=== PATIENT | female | born 1950 | race Caucasian/White ===

== ENCOUNTER → 2016-07-15 | Outpatient (CLI) | payer BC ==
--- NOTE | 2016-07-15 09:47 | MA ---
Bilateral Digital Screening Mammography Clinical History: 66-year-old female with no family history of breast cancer who presents for routine annual mammographic screening. Technique: Digital CC and MLO views of each breast were obtained. The appraiser irrigation tax indicates the mildred ent has MS and stands with the aid of her walker. Today's study is compared with previous exams dated June 23, 2015, May 24, 2014, May 17, 2013, June 21, 2011, June 04, 2010, and 2008. This examination was processed by the [employer] computer-aided detection system. Breast Density: Type C (heterogeneously dense). CAD Evaluation: Negative. Findings: The heterogeneously dense fibroglandular tissue is stable, with no focal neodensity or inte rim architectural change. There are are no new suspicious clustered microcalcifications. Impression: Negative mammography. BI-RADS Category: 1. Recommendation: Routine annual mammographic screening. [facility] will send a result letter to the patient. Negative mammography should not preclude additional work-up of a clinically suspicious finding. The patient's information is entered into a reminder system with a target due date for her next mammo gram.
== END ==
LOC: BMCIMAGING 08:18
DX: Z12.31 Encounter for screening mammogram for malignant neoplasm of breast (principal)
CPT/HCPCS: G0202

== ENCOUNTER 2016-10-17 07:55 | Outpatient (CLI) | payer BC ==
[2016-10-17] MEDS ORDERED: GADOBUTROL 10 ML VIAL IVP ONE (08:42)
[2016-10-17] MEDS ORDERED: MIDAZOLAM 2 MG/2 ML VIAL ONE (09:43)
[2016-10-17] MEDS ORDERED: fentaNYL 100 MCG/2 ML INJ ONE (09:43)
[2016-10-17 10:11] LABS: CREATININE 0.5 mg/dL (0.6-1.0); GLOMERULAR FILTRATION RATE > 60
== END 2016-10-17 12:30 | disposition home or self-care (01) ==
LOC: FIMAGING 07:55
PROVIDERS: ATTEND Specialist
PROC: B030ZZZ Magnetic Resonance Imaging (MRI) of Brain (ICD-10-PCS; principal; 2016-10-17)
PROC: BR30ZZZ Magnetic Resonance Imaging (MRI) of Cervical Spine (ICD-10-PCS; principal; 2016-10-17)
DX: G35 Multiple sclerosis (principal); R93.0 Abnormal findings on diagnostic imaging of skull and head, not elsewhere classified; G95.89 Other specified diseases of spinal cord
CPT/HCPCS: A9585; J2250; J3010

== ENCOUNTER → 2017-07-22 | Outpatient (CLI) | payer BC | LOC: BMCIMAGING 08:19 | PROVIDERS: ATTEND Internal Medicine | DX: Z12.31 Encounter for screening mammogram for malignant neoplasm of breast (principal) ==

== ENCOUNTER 2018-09-20 07:49 | Inpatient (IN) | payer BC ==
[2018-09-20] MEDS ORDERED: NS 1,000 ML IV ONE ×4 (08:03→10:00)
[2018-09-20] MEDS ORDERED: ONDANSETRON 4 MG/2 ML VIAL IVP ONE ×2 (08:14→10:08)
--- NOTE | 2018-09-20 08:14 | EDPHY ---
H & P Time Seen by Provider: 09/20/18 07:52 HPI/ROS: Chief complaint. Nausea vomiting, dehydration HPI. 68 year old female here by EMS with nausea vomiting for 2 days. Unable to keep fluids down. No diarrhea. Exposure to Infectious Disease as the patient is a 2 to her children. She tells me no abdominal pain. She has occasionally had some pain around her heart. No chest pain now. No shortness of breath. No fever. Decreased urine output. So weak could not get out of bed today even with assistance. Yesterday so weak that she slumped off the couch. No injury. No cough. She received Zofran per EMS and her nausea is better ROS 10 systems were reviewed and negative with the exception of the elements mentioned in the history of present illness Past Medical/Surgical History: MS, DVT, dyslipidemia Social History: , nonsmoker, no alcohol Smoking Status: Never smoked Physical Exam: General Appearance: Alert well-developed female moderate distress. Vital signs significant for blood pressure 68/50 for an initial O2 saturation 88% on room air Eyes: Pupils equal and round no pallor or injection. ENT, mucous membranes are dry Respiratory: There are no retractions, lungs are clear to auscultation. Cardiovascular: Regular rate and rhythm. Gastrointestinal: Abdomen is soft and nontender, no masses, bowel sounds normal. Neurological: Awake and alert, sensory and motor exams grossly normal. Skin: Warm and dry, no rashes. Musculoskeletal: Neck is supple nontender. Extremities symmetrical, full range of motion. Psychiatric: Patient is oriented X 3, there is no agitation. Constitutional: Initial Vital Signs Temperature (C) 36.7 C 09/20/18 07:51 Heart Rate 81 09/20/18 07:51 Respiratory Rate 18 09/20/18 07:51 Blood Pressure 68/54 L 09/20/18 07:51 O2 Sat (%) 88 L 09/20/18 07:51 O2 Delivery Mode Nasal Cannula O2 (L/minute) 1 Allergies/Adverse Reactions: No Known Allergies Allergy (Unverified 10/11/16 15:07) Home Medications: Medication Instructions Recorded Cholecalciferol (Vitamin D3) 2,000 unit PO DAILY 10/11/16 [Vitamin D3] Aspirin EC [Aspirin EC 81 mg (*)] 81 mg PO DAILY 09/20/18 Azelaic Acid [Finacea] 1 rosalva TP BID PRN 09/20/18 Baclofen [Baclofen 10 mg (*)] 10 mg PO Q6H PRN 09/20/18 Diclofenac Sodium 1% [Voltaren Gel 2 gm TP QID PRN 09/20/18 (*)] Herbals/Supplements -Info Only 1 ea PO DAILY 09/20/18 Hydrochlorothiazide [HCTZ (*)] 25 mg PO DAILY 09/20/18 Multivitamins [Multivitamin (*)] 1 each PO DAILY 09/20/18 Peginterferon Beta-1A [Plegridy 125 mcg SQ Q14D 09/20/18 Pen] Simvastatin 40 mg PO HS 09/20/18 Urea 40% [Urea Cream (*)] 1 rosalva TP HS PRN 09/20/18 Medical Decision Making - Diagnostics EKG Interpretation: EKG interpreted by me shows normal sinus rhythm with normal interval. Mild interventricular conduction delay. 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 No significant ST elevation or depression. No arrhythmia. The rate is 80 No significant change from previous EKG 2011 Imaging Results: Imaging Impressions Chest X-Ray 09/20/18 08:16 Impression: There is no focal infiltrate, or evidence of CHF. Post central line placement chest x-ray performed by me and shows good position of the catheter Procedures: 2 IVs are started and patient is given 2 L of saline initially. Zofran. Monitor. Sepsis workup Right internal jugular central line is placed by me. Sterile procedure. Ultrasound is used to identify the right internal jugular vein. We continue to use ultrasound to guide the needle into the subclavian vein. Central catheter is placed using Seldinger technique. Patient tolerates the procedure well After central line placement is confirmed she started on norepinephrine for improved blood pressure Patient does have evidence of UTI. She is given Rocephin IV. Urine is sent for culture. Patient has already had blood cultures performed ED Course/Re-evaluation: Re-evaluation 8:30 p.m. Patient is stable. Blood pressure is 70/62 and 69/55 after 1 L of fluid Sepsis workup 8:45 a.m. Pressure the was 93/72 Repeat blood pressure was 112/70. And when we tried to set the patient blood pressure dropped again to 73/51. Patient's lactate is elevated. Severe sepsis ordered. Patient has already received a 30 milliliter/kilogram fluid bolus. At this point this still appears to be dehydration and so far no evidence for infection Patient continues to be somewhat hypertensive and has an elevated lactate. Central line is started and the patient is started on norepinephrine I consulted discussed case with Dr. Echeverria, hospitalist, who agrees to the admission Differential Diagnosis: Initially the seemed to be dehydration. Blood pressure was initially coming up with fluids and then dropped again. Septic workup showed elevated lactate. Chest x-ray shows no pneumonia. Urine does look infected. Patient continued to be hypotensive so central line is placed by me and the patient is placed on a norepinephrine drip. Critical Care Time: Critical care time exclusive procedures 50 min - Data Points Laboratory Results: Laboratory Results 09/20/18 08:00 09/20/18 08:00 09/20/18 09/20/18 09/20/18 09:00 08:45 08:45 WBC RBC Hgb POC Hgb Hct POC Hct MCV MCH MCHC RDW Plt Count MPV Neut % (Auto) Lymph % (Auto) [place] % (Auto) Eos % (Auto) Baso % (Auto) Nucleat RBC Rel Count Absolute Neuts (auto) Absolute Lymphs (auto) Absolute Monos (auto) Absolute Eos (auto) Absolute Basos (auto) Absolute Nucleated RBC Immature Gran % Seg Neutrophils % Band Neutrophils % Lymphocytes % Monocytes % Eosinophils % Basophils % Metamyelocytes % Myelocytes % Promyelocytes % Blast Cells % Immature Gran # Absolute Seg Neuts Absolute Band Neuts Absolute Lymphocytes Absolute Monocytes Absolute Eosinophils Absolute Basophils Absolute Metamyelocyte Absolute Myelocytes Absolute Promyelocytes Absolute Plasma Cells Nucleated RBCs Absolute Blast Cells Plasma Cells % Toxic Vacuolation Platelet Estimate Microcytic Cells Elliptocytes PT 17.2 SEC H SEC REJ (12.0-15.0) INR 1.47 H REJ (0.83-1.16) APTT 36.1 SEC SEC REJ (23.0-38.0) VBG Lactic Acid 2.3 mmol/L H mmol/L (0.7-2.1) POC Sodium Sodium POC Potassium Potassium POC Chloride Chloride Carbon Dioxide POC Total CO2 Anion Gap POC BUN BUN Creatinine POC Creatinine Estimated GFR Glucose POC Glucose Calcium Total Bilirubin Conjugated Bilirubin Unconjugated Bilirubin AST ALT Alkaline Phosphatase POC Troponin I Total Protein Albumin Lipase 09/20/18 09/20/18 09/20/18 08:12 08:11 08:00 WBC RBC Hgb POC Hgb 13.9 gm/dL gm/dL (12.6-16.3) Hct POC Hct 41 % % (38-47) MCV MCH MCHC RDW Plt Count MPV Neut % (Auto) Lymph % (Auto) [place] % (Auto) Eos % (Auto) Baso % (Auto) Nucleat RBC Rel Count Absolute Neuts (auto) Absolute Lymphs (auto) Absolute Monos (auto) Absolute Eos (auto) Absolute Basos (auto) Absolute Nucleated RBC Immature Gran % Seg Neutrophils % Band Neutrophils % Lymphocytes % Monocytes % Eosinophils % Basophils % Metamyelocytes % Myelocytes % Promyelocytes % Blast Cells % Immature Gran # Absolute Seg Neuts Absolute Band Neuts Absolute Lymphocytes Absolute Monocytes Absolute Eosinophils Absolute Basophils Absolute Metamyelocyte Absolute Myelocytes Absolute Promyelocytes Absolute Plasma Cells Nucleated RBCs Absolute Blast Cells Plasma Cells % Toxic Vacuolation Platelet Estimate Microcytic Cells Elliptocytes PT INR APTT VBG Lactic Acid POC Sodium 138 mEq/L mEq/L (135-145) Sodium 134 mEq/L L mEq/L (135-145) POC Potassium 3.1 mEq/L L mEq/L (3.3-5.0) Potassium 3.1 mEq/L L mEq/L (3.5-5.2) POC Chloride 101 mEq/L mEq/L (97-110) Chloride 101 mEq/L mEq/L (97-110) Carbon Dioxide 23 mEq/l mEq/l (22-31) POC Total CO2 26 mEq/L mEq/L (22-31) Anion Gap 10 mEq/L mEq/L (6-14) POC BUN 44 mg/dL H mg/dL (7-23) BUN 43 mg/dL H mg/dL (7-23) Creatinine 1.3 mg/dL H mg/dL (0.6-1.0) POC Creatinine 1.4 mg/dL H mg/dL (0.6-1.0) Estimated GFR 41 Glucose 100 mg/dL mg/dL (70-100) POC Glucose 99 mg/dL mg/dL (70-100) Calcium 9.2 mg/dL mg/dL (8.5-10.4) Total Bilirubin 0.7 mg/dL mg/dL (0.1-1.4) Conjugated Bilirubin 0.5 mg/dL mg/dL (0.0-0.5) Unconjugated Bilirubin 0.2 mg/dL mg/dL (0.0-1.1) AST 76 IU/L H IU/L (14-46) ALT 42 IU/L IU/L (9-52) Alkaline Phosphatase 138 IU/L H IU/L (38-126) POC Troponin I 0.01 ng/mL ng/mL (0.00-0.08) Total Protein 6.1 g/dL L g/dL (6.3-8.2) Albumin 3.2 g/dL L g/dL (3.5-5.0) Lipase 23 IU/L IU/L (23-300) 09/20/18 08:00 WBC 12.21 10^3/uL H 10^3/uL (3.80-9.50) RBC 4.62 10^6/uL 10^6/uL (4.18-5.33) Hgb 13.9 g/dL g/dL (12.6-16.3) POC Hgb Hct 39.5 % % (38.0-47.0) POC Hct MCV 85.5 fL fL (81.5-99.8) MCH 30.1 pg pg (27.9-34.1) MCHC 35.2 g/dL g/dL (32.4-36.7) RDW 13.6 % % (11.5-15.2) Plt Count 88 10^3/uL L 10^3/uL (150-400) MPV 12.4 fL H fL (8.7-11.7) Neut % (Auto) Not Reported Lymph % (Auto) Not Reported [place] % (Auto) Not Reported Eos % (Auto) Not Reported Baso % (Auto) Not Reported Nucleat RBC Rel Count Not Reported Absolute Neuts (auto) Not Reported Absolute Lymphs (auto) Not Reported Absolute Monos (auto) Not Reported Absolute Eos (auto) Not Reported Absolute Basos (auto) Not Reported Absolute Nucleated RBC Not Reported Immature Gran % Not Reported Seg Neutrophils % 63.0 % % Band Neutrophils % 28.0 % % Lymphocytes % 1.0 % % Monocytes % 1.0 % % Eosinophils % 0.0 % % Basophils % 0.0 % % Metamyelocytes % 7.0 % % Myelocytes % 0.0 % % Promyelocytes % 0.0 % % Blast Cells % 0.0 % % Immature Gran # Not Reported Absolute Seg Neuts 7.69 10^3/uL H 10^3/uL (1.70-6.50) Absolute Band Neuts 3.42 10^3/uL H 10^3/uL (0.00-0.70) Absolute Lymphocytes 0.12 10^3/uL L 10^3/uL (1.00-3.00) Absolute Monocytes 0.12 10^3/uL L 10^3/uL (0.30-0.80) Absolute Eosinophils 0.00 10^3/uL L 10^3/uL (0.03-0.40) Absolute Basophils 0.00 10^3/uL L 10^3/uL (0.02-0.10) Absolute Metamyelocyte 0.85 10^3/mL H 10^3/mL (0.00-0.00) Absolute Myelocytes 0.00 10^3/mL 10^3/mL (0.00-0.00) Absolute Promyelocytes 0.00 10^3/uL 10^3/uL (0.00-0.00) Absolute Plasma Cells 0.00 10^3/uL 10^3/uL (0.00-0.00) Nucleated RBCs 0 /100 WBC /100 WBC (0-0) Absolute Blast Cells 0.00 10^3/uL 10^3/uL (0.00-0.00) Plasma Cells % 0.0 % % Toxic Vacuolation PRESENT H Platelet Estimate DECREASED L (ADEQ) Microcytic Cells 1+ H Elliptocytes 1+ H PT INR APTT VBG Lactic Acid POC Sodium Sodium POC Potassium Potassium POC Chloride Chloride Carbon Dioxide POC Total CO2 Anion Gap POC BUN BUN Creatinine POC Creatinine Estimated GFR Glucose POC Glucose Calcium Total Bilirubin Conjugated Bilirubin Unconjugated Bilirubin AST ALT Alkaline Phosphatase POC Troponin I Total Protein Albumin Lipase Medications Given: Acetaminophen (Tylenol) 650 mg PO Q4HRS PRN PRN Reason: Pain, Mild/Fever, Can Take PO Stop: 03/19/19 09:48 Last Admin: 09/20/18 11:44 Dose: 650 mg Baclofen (Baclofen) 10 mg PO Q6H PRN PRN Reason: MUSCLE SPASM Stop: 03/19/19 11:10 Last Admin: 09/20/18 11:43 Dose: 10 mg Potassium Chloride (Potassium Cl 10 Meq (Premix)) 100 mls @ 100 mls/hr IV Q1H VITALIY Stop: 09/20/18 12:59 Last Admin: 09/20/18 11:53 Dose: 100 mls Discontinued Medications Sodium Chloride (Ns) 1,000 mls @ 0 mls/hr IV ONCE ONE; Wide Open PRN Reason: Protocol Stop: 09/20/18 08:04 Last Admin: 09/20/18 08:04 Dose: 1,000 mls Sodium Chloride (Ns) 1,000 mls @ 0 mls/hr IV EDNOW ONE; Wide Open PRN Reason: Protocol Stop: 09/20/18 08:15 Last Admin: 09/20/18 08:20 Dose: 1,000 mls Sodium Chloride (Ns) 1,000 mls @ 0 mls/hr IV EDNOW ONE; Wide Open PRN Reason: Protocol Stop: 09/20/18 09:11 Last Admin: 09/20/18 09:11 Dose: 1,000 mls Sodium Chloride (Ns) 2,000 mls @ 4,000 mls/hr 30 ml/kg infuse over 30 min ( 2000 ml) IV EDNOW ONE PRN Reason: Protocol Stop: 09/20/18 09:40 Last Admin: 09/20/18 09:15 Dose: Not Given Sodium Chloride (Ns) 1,000 mls @ 0 mls/hr IV ONCE ONE; Wide Open PRN Reason: Protocol Stop: 09/20/18 10:01 Last Admin: 09/20/18 10:02 Dose: 1,000 mls Ceftriaxone Sodium/Dextrose (Rocephin 1 Gm (Premix)) 50 mls @ 100 mls/hr IV EDNOW ONE PRN Reason: Protocol Stop: 09/20/18 10:50 Last Admin: 09/20/18 10:59 Dose: 50 mls Ondansetron HCl (Zofran) 4 mg IVP EDNOW ONE Stop: 09/20/18 08:15 Last Admin: 09/20/18 08:20 Dose: 4 mg Ondansetron HCl (Zofran) 4 mg IVP EDNOW ONE Stop: 09/20/18 10:09 Last Admin: 09/20/18 10:09 Dose: 4 mg Point of Care Test Results: Chemistry 09/20/18 09/20/18 08:12 08:11 POC Sodium 138 mEq/L mEq/L (135-145) POC Potassium 3.1 mEq/L L mEq/L (3.3-5.0) POC Chloride 101 mEq/L mEq/L (97-110) POC Total CO2 26 mEq/L mEq/L (22-31) POC BUN 44 mg/dL H mg/dL (7-23) POC Creatinine 1.4 mg/dL H mg/dL (0.6-1.0) POC Glucose 99 mg/dL mg/dL (70-100) POC Troponin I 0.01 ng/mL ng/mL (0.00-0.08) ISTAT H&H 09/20/18 08:12 POC Hgb 13.9 gm/dL gm/dL (12.6-16.3) POC Hct 41 % % (38-47) Departure - Departure Disposition: [facility] Inpatient Acute Clinical Impression: Septic shock Sepsis Qualifiers: Sepsis type: sepsis due to unspecified organism Qualified Code(s): A41.9 - Sepsis, unspecified organism Urinary tract infection Qualifiers: Urinary tract infection type: site unspecified Hematuria presence: without hematuria Qualified Code(s): N39.0 - Urinary tract infection, site not specified Hypotension Qualifiers: Hypotension type: unspecified hypotension type Qualified Code(s): I95.9 - Hypotension, unspecified Condition: Fair
[2018-09-20 08:25] LABS: PLATELET COUNT 88 10^3/uL (150-400)
--- NOTE | 2018-09-20 08:34 | CPEKG ---
Test Reason : OPEN Blood Pressure : / mmHG Vent. Rate : 080 BPM Atrial Rate : 080 BPM P-R Int : 144 ms QRS Dur : 124 ms QT Int : 399 ms P-R-T Axes : 076 -19 018 degrees QTc Int : 461 ms Sinus rhythm IVCD, consider atypical RBBB Inferior infarct, old Confirmed by Mario Alberto Dan ([id number]) on 09/20/2018 8:34:07 AM Referred By: MARIO ALBERTO DAN Confirmed By:Mario Alberto Dan
[2018-09-20] MEDS ORDERED: NS 2,000 ML IV ONE (09:11)
[2018-09-20 09:41] LABS: INR 1.47 (0.83-1.16); PROTIME(PATIENT) 17.2 SEC (12.0-15.0)
[2018-09-20] MEDS ORDERED: ONDANSETRON DISINTEGRATING 4 MG TAB PO PRN (09:49)
[2018-09-20] MEDS ORDERED: ONDANSETRON 4 MG/2 ML VIAL ONE (10:06)
[2018-09-20] MEDS ORDERED: NOREPINEPHRINE BITARTRATE 4 MG in NS 500 ML IV ONE (10:21)
[2018-09-20] MEDS ORDERED: POTASSIUM Cl (KCl) 10 MEQ/100 ML BAG IV ONE ×2 (10:26→11:52)
[2018-09-20] MEDS: POTASSIUM Cl (KCl) 100 ML IV SCH ×3 (10:35→15:30)
[2018-09-20] MEDS ORDERED: UREA 40% CREAM TP PRN (11:11)
[2018-09-20] MEDS ORDERED: AZELAIC ACID TP PRN (11:11)
[2018-09-20] MEDS ORDERED: NS 1,000 ML IV SCH (11:30)
[2018-09-20] MEDS ORDERED: BACLOFEN 10 MG TAB ONE (11:39)
[2018-09-20] MEDS ORDERED: ACETAMINOPHEN 325 MG TAB ONE (11:41)
[2018-09-20] MEDS: BACLOFEN 10 MG TAB PO PRN ×3 (11:43→23:45)
[2018-09-20] MEDS: ACETAMINOPHEN 325 MG TAB PO PRN ×2 (11:44→16:34)
--- NOTE | 2018-09-20 12:05 | GHP ---
[f rep st] HISTORY AND PHYSICAL DATE OF ADMISSION: 09/20/2018 CHIEF COMPLAINT: Confusion, hypotension. HISTORY OF PRESENT ILLNESS: HPI is obtained from ER physician, as well as daughter who is at bedside, since patient is encephalopathic. Patient is a 68-year-old female with a history of multiple sclerosis, left peroneal vein DVT 2015, who presents by EMS with nausea and vomiting since Friday. She has been unable to tolerate p.o. intake. Denies fevers, chills or sweats. No diarrhea, abdominal pain. Has urinary urgency which she states is her norm. Yesterday, she became so weak she slumped down from the couch to the floor and was down for a few hours until daughter returned home to help up. The patient complains of "pain around my heart, but could not elicit when aggravating/alleviating factors. 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 Last exposure a week ago. In the ER, was hypotensive to 69/55 after 1 L of fluid. This improved to 112/70 , but then dropped again. Dr. Dan placed a central line. Systolic blood pressure now 112 with a map greater than 75. REVIEW OF SYSTEMS: I completed a 10-point review of system. PAST MEDICAL HISTORY: 1. Multiple sclerosis, history of falls, history of sternal fracture. 2. Left peroneal vein DVT 2016, status post Xarelto treatment. PAST SURGICAL HISTORY: None. FAMILY HISTORY: Noncontributory. SOCIAL HISTORY: Lives with her . No alcohol, tobacco or illicits. HOME MEDICATIONS: Plegridy q.14 days, urea cream, simvastatin 40 mg daily, multivitamin, hydrochlorothiazide 25 daily, Finacea cream, diclofenac gel, baclofen 10 q.6 hours p.r.n., aspirin. ALLERGIES: None. PHYSICAL EXAM: VITAL SIGNS: Temperature afebrile. Blood pressure is 70/53, now 105/65, map 78, heart rate in the 90s, respirations 20, 93% on room air. GENERAL: She is an overweight female lying in bed in no acute distress. HEENT : Significantly dry mucous membranes. Oropharynx clear. No exudates or erythema. CV: Regular rate and rhythm. No murmurs, gallops, or rubs. LUNGS: Clear anteriorly. ABDOMEN: Obese, but soft. No grimace with palpation. Positive bowel sounds. : No suprapubic tenderness. Was unable to turn to evaluate for CVA tenderness. : No Loyd. MUSCULOSKELETAL: Having upper extremity spasms. SKIN: Warm, dry. No rash or ulceration. NEURO: Not able to participate in my exam due to confusion. PSYCH: She is encephalopathic. She is oriented to the hospital, the city, but not the date or year. LABS: WBC 12, hemoglobin 13, hematocrit 39, platelets 88 (baseline 226, March 2018). Lactate 2.3. Sodium 134, potassium 3.1, chloride 101, carbon dioxide 23, BUN 43, creatinine is 1.4 (baseline 0.7). Troponin 0.001. Chest x-ray is personally reviewed by me. No pneumonia. EKG is personally reviewed by me. Sinus rhythm, IVCD which is seen on old in 2011. ASSESSMENT AND PLAN: 1. Septic shock: (leukocytosis, elevated lactate, +UA) CXR negative. Urine/ blood cultures are pending. IV Ceftriaxone. Dosed 4L fluids with persistent hypotension. Start Levophed; central line placed in ER. 2. Hypotension: due to above and dehydrated. Troponin and EKG are nonischemic. Repeat troponin and monitor on telemetry. Infectious evaluation as above. Hold hydrochlorothiazide. 3. Lactic acidosis: due to shock, starvation ketoacidosis. Receiving intravenous fluids. Repeat this afternoon. 4. Multiple sclerosis: baclofen for muscle spasms. 5. Hypovolemic hyponatremia: decreased PO. Intravenous fluids. 6. Hypokalemia. repleting. 7. Acute kidney injury: Baseline Cr 0.7; up to 1.4. Avoid nephrotoxic agents , hold HCTZ 8. Hypertension. Hold hydrochlorothiazide. 9. Thrombocytopenia: platelets 88. From acute critical illness. No evidence of bleeding. 10. Metabolic encephalopathy: due to acute illness. Avoid centrally-acting medications. 11. Diet: Advance as tolerated. 12. Deep vein thrombosis prophylaxis: Sequential compression devices. DISPOSITION: Inpatient admission given severe sepsis warranting ICU, IV fluids and antibiotics. CRITICAL CARE TIME: Spent 60 minutes bedside with patient, interviewing family and discussing case with Dr. Dan. /[id number]/MODL MTDD
--- NOTE | 2018-09-20 15:25 | ASMTCMCOM ---
CM Note CM Note Notes: Reviewed chart. Pt presented to the Emergency Department with nausea, vomiting and dehydration. History includes MS, falls, prior sternal fx, left DVT. Pt is and lives with her in [place]. Pt admitted for septic shock, hypotension. Discharge needs remain unclear at this time. Will await PT/OT evals. CM will continue to follow. Discharge Plan: To be determined Date Signed: 09/20/2018 03:25 PM Electronically Signed By:Sheri Marte RN
[2018-09-20] MEDS ORDERED: POTASSIUM Cl (KCl) 100 ML IV ONE (15:30)
[2018-09-20] MEDS: VASOPRESSIN 25 UNIT in NS 250 ML IV SCH (16:04)
[2018-09-20] MEDS: HYDROCORTISONE 100 MG/2 ML VIAL IVP SCH (17:38)
[2018-09-20] MEDS: NOREPINEPHRINE BITARTRATE 4 MG in NS 500 ML IV SCH ×2 (18:19→22:36)
--- NOTE | 2018-09-20 18:38 | PDMN ---
Medical Necessity Medical necessity: [facility] [place] and other febrile illness: 68 yo F with PMHX MS, L peroneal vein DVT( 2016) presents with N/V X 2 days, unable to tolerate PO, weakness, hypotensive- septic shock with leukocytosis, elevated lactate +UA, urine/blood cultures pending- anticipate > 2 MN ongoing med nec care- further monitoring, eval and tx.
[2018-09-20] MEDS: ONDANSETRON 4 MG/2 ML VIAL IVP PRN (20:37)
--- NOTE | 2018-09-20 20:51 | GCON ---
[f rep st] CONSULTATION [facility] CONSULTATION REASON FOR ADMISSION: Sepsis, urinary tract infection. I was asked to see the patient by Dr. Yoan Echeverria. The patient is a very pleasant 68-year-old white female with a past medical history of multiple scler osis. She also had DVT in the past. She presents with feeling unwell for the last 3 days. This is mostly nausea and vomiting, and she was unable to keep fluids down. She denies any cough or producti ve sputum. There was no chest pain, pleuritic-type chest pain or angina equivalent. She had increas ed weakness and was found slumped on the floor. She was brought to the emergency room and found to b e hypotensive. She was started on IV fluids and was subsequently admitted to the intensive care unit . Currently, she feels somewhat better, but is quite weak and very somnolent. REVIEW OF SYSTEMS: Ten-point review of systems is performed and negative except for what is listed i n HPI. PAST MEDICAL HISTORY: Significant for DVT, multiple sclerosis, and history of falls. ALLERGIES: No known allergies to medications. SOCIAL HISTORY: Lifelong never-smoker. She denies any significant alcohol use. 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 She is . She has children. She has excellent family support. She has lived in [place] for 45 years, is or iginally from [facility]. MEDICATIONS AT HOME: Include baclofen, aspirin, hydrochlorothiazide, multivitamin, simvastatin, Pleg ridy. FAMILY HISTORY: Noncontributory. PHYSICAL EXAM: VITAL SIGNS: Blood pressure is 68/46, pulse 89, respirations 20, temperature is 36.9 , oxygen saturation 98% on 4 L. GENERAL: She is a well-developed, well-nourished, elderly white fem cassi who is resting comfortably on supplemental oxygen. HEENT: Eyes: PERRLA. EOMI. Throat shows n o erythema or tonsillar hypertrophy. NECK: Supple. No cervical adenopathy. HEART: Regular rate a nd rhythm without murmurs, rubs, or gallops. LUNGS: Diminished breath sounds, but no wheeze. There are a few bibasilar crackles. ABDOMEN: Soft, nontender. Bowel sounds are present. EXTREMITIES: No clubbing, cyanosis, or edema. LABORATORIES: White count is 12.2, hemoglobin 13, hematocrit 41, platelet count is 88. Sodium 138, potassium 3.1, chloride 101, CO2 26, BUN 43, creatinine 1.3, glucose is 99, alkaline phosphatase is e levated at 138. Urinalysis: pH is 5, specific gravity 1.014, 3+ blood, 10-15 WBCs, 4+ bacteria. Ch est x-ray shows mild cardiomegaly. There is mild increased cephalization of flow. IMPRESSION: 1. Sepsis with septic shock. 2. Urinary tract infection, likely source. 3. Mild fluid overload. 4. History of multiple sclerosis. 5. History of deep venous thrombosis. 6. Thrombocytopenia. 7. Mild renal insufficiency, likely prerenal. RECOMMENDATIONS: 1. Agree with continued hydration. 2. Supplemental oxygen. 3. Agree with IV pressors, consisting of Levophed. 4. Agree with current antibiotics. 5. DVT and PE prophylaxis. 6. Stress ulcer prophylaxis. 7. Wean FiO2 as tolerated. Thank you very much for allowing me to participate in the care of this interesting patient. We will follow along with you. /[id number]/MODL
--- NOTE | 2018-09-20 23:22 | CPEKG ---
Test Reason : OPEN Blood Pressure : / mmHG Vent. Rate : 075 BPM Atrial Rate : 075 BPM P-R Int : 146 ms QRS Dur : 115 ms QT Int : 399 ms P-R-T Axes : 060 -19 012 degrees QTc Int : 446 ms Sinus rhythm leftward axis inferior Q waves noted Incomplete right bundle branch block Low voltage, precordial leads Confirmed by Abhijit Calvin ([id number] on 09/20/2018 11:22:19 PM Referred By: Leni Echeverria Confirmed By:Abhijit Calvin
[2018-09-21] MEDS: HYDROCORTISONE 100 MG/2 ML VIAL IVP SCH ×2 (04:58→22:56)
[2018-09-21] MEDS: ONDANSETRON 4 MG/2 ML VIAL IVP PRN ×3 (05:03→14:11)
[2018-09-21] MEDS: VASOPRESSIN 25 UNIT in NS 250 ML IV SCH (05:03)
[2018-09-21] MEDS: BACLOFEN 10 MG TAB PO PRN ×4 (06:03→22:57)
[2018-09-21 06:15] LABS: PLATELET COUNT 36 10^3/uL (150-400)
--- NOTE | 2018-09-21 08:49 | HOSPPROG ---
Hospitalist Progress Note Assessment/Plan: #Septic shock: due to bacteremia. Off pressors, cont IV steroids #E coli bacteremia: IV CTX #Type 2 NSTEMI: demand from critical illness. No WMA on echo #Thrombocytopenia: due to sepsis. Cryo not indicated. No heparin products #Metabolic encephalopathy: due to acute illness, improved #MS: PRN Baclofen #MIKEY: improved #Hypokalemia: repleted #HTN: hold BP meds with shock #Diet: regular #DVT ppx: SCDs Critical care time spent: 35 min bedside with pt/family, d/w Dr. Go Subjective: c/o left-sided CP, dull this morning Objective: Vital Signs Temp Pulse Resp BP Pulse Ox 36.4 C 66 18 110/66 93 09/20/18 22:00 09/21/18 08:30 09/21/18 08:30 09/21/18 08:30 09/21/18 08:30 Laboratory Results 09/21/18 05:05 09/20/18 09/21/18 09/22/18 05:59 05:59 05:59 Intake Total 4790 Output Total 650 Balance 4140 PT 17.2 SEC (12.0-15.0) H 09/20/18 09:00 INR 1.47 (0.83-1.16) H 09/20/18 09:00 - Time Spent With Patient Time Spent with Patient: greater than 35 minutes Time Spent with Patient: Greater than 35 minutes spent on this patients care, greater than 50% of time spent counseling, educating, and coordinating care regarding the above mentioned plan. - Physical Exam Constitutional: uncomfortable Eyes: PERRL Ears, Nose, Mouth, Throat: moist mucous membranes Cardiovascular: regular rate and rhythym, No edema Respiratory: no respiratory distress Genitourinary: no bladder fullness, collins in urethra Skin: warm Musculoskeletal: full muscle strength Neurologic: CN II-XII Intact Psychiatric: encephalopathic ICD10 Worksheet Patient Problems: Problems Problem Status Onset Sepsis Acute Urinary tract infection Acute Hypotension Acute Septic shock Acute
[2018-09-21] MEDS ORDERED: ENOXAPARIN 40 MG/0.4 ML SYR SC SCH (09:00)
[2018-09-21] MEDS ORDERED: POLYETHYLENE GLYCOL 3350 17 GM PKT PO PRN (09:01)
[2018-09-21] MEDS ORDERED: LACTULOSE 20 GM/30 ML UDCUP PO PRN (09:01)
[2018-09-21] MEDS ORDERED: MAGNESIUM HYDROXIDE 30 ML UDCUP PO PRN (09:01)
[2018-09-21] MEDS ORDERED: BISACODYL 10 MG SUPP PR PRN (09:01)
[2018-09-21 09:21] LABS: INR 1.76 (0.83-1.16); PROTIME(PATIENT) 19.7 SEC (12.0-15.0)
[2018-09-21 10:02] LABS: PLATELET COUNT 36 10^3/uL (150-400)
--- NOTE | 2018-09-21 13:09 | PDCONSULT ---
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 # UTI # ecoli bacteremia # encephalopathy # multiple sclerosis # thrombocytopenia. Sepsis coagulopathy. No risk factors for Chuck, DIC panel negative # leukocytosis. infection plus steroids # MIKEY. SCr trending down # type 2 NSTEMI. demand from sepsis. TTE without focal wall motion abnormalities PLAN # broad antibiotics from ceftriaxone to ertapenem given risk for ESBL and critical illness # wean norepinephrine as tolerated # continue steroids until vasopressors are off at that time may wean to off # delirium precautions # id consult # stop IV fluids # stop CVP monitoring # keep RIJ in for now, will dc once clinically improved # follow up TTE # Feeding - advance diet as tolerated # Analgesia APAP, # Sedation none # Thromboprophylaxis - SCDs, hold hep due to thrombocytopenia # Head of bed elevated # Ulcer prophylaxis - NA # Glucose SSI # Skin no skin breakdown # Delirium - delirium precautions Patient is critical ill due to life threatening organ dysfunction and is at high risk for decompensation and . Total critical care time, excluding procedures: 85 min CX Data 09/20/18 BCx ecoli 09/20/18 UCx ecoli IMAGING Personally reviewed interpreted radiographic images well as formal radiology reads 09/20/2018 CXR clear lung mccarthy no cardiomegaly, no infiltrate or effusion. 09/21/2017 TTE-LIMITED SECONDARY TO BODY HABITUS. NORMAL LV SIZE AND SYSTOLIC FUNCTION. LVEF 50%, NO FOCAL WALL MOTION ABNORMALITIES. MILD MR WITHOUT MITRAL VALVE PROLAPSE, [id number] TR. SUBJ Remains confused. Vasopressor requirements decreasing. Blood cultures now positive for E coli. No new chest pain, fevers, chills, shortness of breath Exam Afebrile, heart rate 115 sinus, blood pressure 95/58, respiratory rate 22 91% on 2 L nasal cannula GEN: Resting in bed, ill-appearing NEURO: No focal deficits, delirious by CAM assessment, tangential speech HEENT: PERRL, EOMI, MMM, OP clear NECK: supple, trachea midline CHEST normal shape, no pes excavatum CVS: rrr no m/r/g PULM: CTA B, no wheezes/rales/rhonchi ABD: soft, NT, ND, NABS EXT: no swelling, no cyanosis, full ROM SKIN: warm, dry, intact, no rash PSYCH CAM negative, delirious Labs Reviewed
--- NOTE | 2018-09-21 13:10 | ECHO ---
[email or web address] [address] Main: [phone] Echocardiography Examination Transthoracic Name: LISET RENE MR#: [id number] Study Date: 09/21/2018 Study Time: 09:58 AM Date of : 1950 Age: 68 year(s) Height: 162.6 cm (64 in.) Weight: 65.77 kg (145 lb.) BSA: 1.71 m2 Gender: Female Examination: Echo Contrast: Image Quality: Good Rhythm: Heart Rate: 78 bpm BP: 107 mmHg/46 mmHg Indication: Indeterminate Troponins, Eval for WMA Procedure Staff Referring Physician: Chili Pepper Grinder: Bakari Roldan RDCS Reading Physician: Anand Reynaga MD Requesting Provider: Indication: Indeterminate Troponins, Eval for WMA Measurements Chambers AV/MV Label Value Normal Value Label Value Normal Value EF upper range (%) 58 % AV PGmax 7 mmHg IVSd, 2D 0.8 cm (0.6cm - 1.1cm) AV PGmean 4 mmHg LVDd, 2D 4.3 cm (3.9cm - 5.3cm) AV Vmax 1.34 m/s LVDs, MM 2.4 cm (2cm - 3.8cm) BRIANDA (continuity eq. 2.1 cm2 LVOT PGmax 4 mmHg Vmax) LVOT PGmean 2 mmHg BRIANDA D (continuity eq. 2.2 cm2 LVOT Vmax 0.98 m/s (0.7m/s - 1.1m/s) VTI) LVOT Vmean 0.57 m/s MV A Vmax 0.77 m/s LVOTd 1.9 cm (1.8cm - 2cm) MV E' lateral 0.06 m/s LVPWd, 2D 0.9 cm MV E' mean 0.06 m/s RVDd, 2D 2.7 cm (1.9cm - 3.8cm) MV E' septal 0.05 m/s LA Area, A2C 11.8 cm2 (0cm2 - 20cm2) MV E Vmax 0.91 m/s LA Volume, A2C 27 ml (22ml - 52ml) MV E/A 1.18 LA Volume, A4C 40 ml (22ml - 52ml) MV E/E' lateral 14.1 LAESV index, MOD4 23.4 ml/m2 MV E/E' mean 16.55 RA Area 11.5 cm2 MV E/E' septal 18.3 (0.45 - 1.25) Additional Vessels TV/PV Label Value Normal Value Label Value Normal Value AoRoot, MM 3.1 cm (2.2cm - 3.7cm) RA Pressure 5 mmHg RVSP 31 mmHg Patient: LISET RENE Study Date: 09/21/2018 Page 1 of 3 09:58 AM TR Pmax 26 mmHg TR Vmax 2.53 m/s PV PGmax 2 mmHg PV Vmax, Caliper 0.68 m/s (0.6m/s - 0.9m/s) Conclusions Left Ventricle: CONCLUSIONS:1)Technically limited echo secondary to body habitus.2)Normal LV size and systolic function with a LVEF of 58% and no focal wall motion abnormalities noted.3)Mild MR without MV prolapse.4)Mild to moderate TR with estimated normal PA pressures.5)No pericardial effusion noted. Findings Left Ventricle: Left ventricle is normal in size. CONCLUSIONS: 1)Technically limited echo secondary to body habitus. 2)Normal LV size and systolic function with a LVEF of 58% and no focal wall motion abnormalities noted. 3)Mild MR without MV prolapse. 4)Mild to moderate TR with estimated normal PA pressures. 5)No pericardial effusion noted.Left ventricle wall thickness is normal. There are no regional wall motion abnormalities. Left ventricular diastolic function parameters are normal. Right Ventricle: Normal size right ventricle. Right ventricular systolic function is normal. Left Atrium: The left atrium is normal in size. Right Atrium: The right atrium is normal in size. Right Atrium Measurements RA Area is 11.5 cm2. Mitral Valve: Mild mitral regurgitation. No mitral valve stenosis. There is minimal mitral calcification. Aortic Valve: No aortic valve regurgitation. There is no aortic stenosis. Aortic leaflets exhibit no calcification. The aortic valve is trileaflet. Tricuspid Valve: Mild to moderate tricuspid regurgitation. Right Ventricular systolic pressure is measured at 31 mmHg. Pulmonary artery pressure normal. Pulmonic Valve: Pulmonic leaflets are normal in appearance and function. No pulmonic valve regurgitation is evident. Aorta: The aorta is normal. The aortic root size in M-mode measures 3.1 cm. Aorta Measurements AoRoot, MM is 3.1 cm. Pericardium: No pericardial effusion. Exam Details Procedure Ordered: Echo Procedure Status: Routine study Image Quality: Good Facility Location: Cardiac Echo 1 Patient: LISET RENE Study Date: 09/21/2018 Page 2 of 3 09:58 AM (No Signature Object) Patient: LISET RENE Study Date: 09/21/2018 Page 3 of 3 09:58 AM [id number]
[2018-09-21] MEDS: ERTAPENEM 1 GM in NS 100 ML IV SCH (13:18)
--- NOTE | 2018-09-21 14:24 | GCON ---
[f rep st] CONSULTATION INFECTIOUS DISEASE CONSULTATION DATE OF CONSULTATION: 09/21/2018 REFERRING PHYSICIAN: Leni Echeverria MD REASON FOR CONSULTATION: Sepsis with Escherichia coli bacteremia. HISTORY OF PRESENT ILLNESS: The patient is a 68-year-old female with a past medical history of multi ple sclerosis, who I am asked to see in consultation for septic shock with associated E coli bacterem ia. The patient developed several days of nausea with vomiting prior to admission. This was associa lupe with decreased oral intake. She did not have fever, chills, or night sweats. She denies any dys uria, urgency or frequency. There was no associated abdominal pain or diarrhea. The day prior to ad mission, she became so weak that she slumped down from the couch to the floor and was on the floor fo r several hours prior to her daughter returning home to help her get up. Based on those findings, gian jacques was taken to the emergency department where she was noted to be hypotensive which ultimately requir ed vasopressor support. Leukocytosis and thrombocytopenia with bandemia were also present. The mildred ent was also noted to have mild elevation in creatinine, as well as an increase in lactic acid. The patient was started empirically on ceftriaxone given the above findings and blood cultures were obtai estefani. Blood cultures now are showing both sets with growth of Escherichia coli. Urine culture is pen ding and patient was noted to have evidence of 10-15 white blood cells and bacteria. No previous his tory of significant problems with infections such as pneumonia or UTI. No recent travel. The patiterri t has clinically improved with ICU supportive care and antibiotic therapy and has now been weaned off pressors. She has some persisting nausea present. Given the above findings, I am now asked to jorge grijalva in her ongoing management. PAST MEDICAL HISTORY: Multiple sclerosis, left lower extremity DVT. PAST SURGICAL HISTORY: Oral cyst removal many years ago. CURRENT MEDICATIONS: Ceftriaxone 2 g IV daily, baclofen as needed, Zofran as needed, normal saline. ALLERGIES: No known drug allergies. SOCIAL HISTORY: Patient does not smoke and rarely drinks alcohol. Very supportive family at bedside today. FAMILY HISTORY: Hypertension, coronary artery disease. REVIEW OF SYSTEMS: Outside that noted in the HPI, remainder of 10-system review is unremarkable. Th ere is no history of indwelling Loyd catheter use. PHYSICAL EXAMINATION: VITAL SIGNS: Temperature maximum 39.3, temperature current 36.5, heart rate 7 5, respiratory rate 24, blood pressure 103/68, oxygen saturation 92% on 1 L. GENERAL: Patient is we ll-nourished, well-developed, in no acute distress. She is sitting up in a chair. She appears nonto xic. HEENT: There is no scleral icterus, conjunctival injection, or conjunctival petechiae. The or opharynx shows dry mucous membranes. No other lesions noted. There is no nasal discharge or sinus t enderness. NECK: Supple without palpable lymphadenopathy. CHEST: Clear to auscultation bilaterall y without adventitious sounds. The respiratory effort is normal. CARDIOVASCULAR: Regular rate and rhythm without murmurs, gallops, or rubs. ABDOMEN: Soft, nontender, nondistended. There is no palp able organomegaly. Bowel sounds are present. MUSCULOSKELETAL: There is no cyanosis, clubbing, or e silvano. BACK: No CVA tenderness present. SKIN: No stigmata of endocarditis. Skin is warm and dry t o touch. NEUROLOGIC: The patient is mildly confused but is able to follow commands easily. LYMPHAT ICS: No cervical or supraclavicular nodes palpable. LABORATORY DATA: White blood cell count 20.2, hematocrit 37.0, platelets 36. Serum creatinine 1.1, bicarbonate 13, AST 76, ALT 42, bilirubin 0.7, alkaline phosphatase 138. Venous lactate 2.1. INR 1. 8. Fibrinogen 683. Urinalysis shows 10-15 white blood cells with 4+ bacteria. Blood cultures with 2/2 sets showing E co li; urine culture is pending. Chest x-ray shows no evidence of pneumonia. IMPRESSION: 1. Septic shock due to Escherichia coli bacteremia: The patient has been weaned off pressors with I CU supportive care and antibiotic therapy. Most likely etiology will be of urinary source. Intraabd ominal would be other consideration although given clinical improvement, suspect this will be less yeimy estevez. In the setting of septic shock, favor use of ertapenem pending susceptibility data, given pote ntial for extended-spectrum beta-lactamase producing organism, although typically only constitutes 3% to 5% of Escherichia coli in our hospital. RECOMMENDATIONS: 1. Ertapenem 1 g IV daily. 2. Discontinue ceftriaxone. 3. Await susceptibility profile on E coli. 4. Follow clinical response to above measures. 5. Follow up urine culture as available. 6. Thank you for this consultation. We will continue to follow the patient with you. /[id number]/MODL
[2018-09-21] MEDS ORDERED: PROMETHAZINE HCL 25 MG/ML INJ IVP PRN (15:27)
--- NOTE | 2018-09-21 15:59 | ASMTCMCOM ---
CM Note CM Note Notes: CM attempted to meet with pt's children to discuss advanced directives and discharge planning. Pt's children were not in the room but pt's was. CM provided with information on unskilled homecare, advanced directives, and [employer]. He said he would review information and CM would touch base tomorrow when children are visiting. At this time PT rec: SNF vs Inpt rehab; OT rec inpt rehab. CM to follow. Plan: SNF vs inpt rehab Date Signed: 09/21/2018 03:59 PM Electronically Signed By:JAIMEE Delatorre
[2018-09-21] MEDS ORDERED: ALBUMIN 5% 500 ML IV ONE (16:19)
[2018-09-21] MEDS ORDERED: NOREPINEPHRINE BITARTRATE 4 MG in NS 500 ML IV SCH (16:30)
[2018-09-21] MEDS: SENNOSIDES/DOCUSATE SODIUM TAB PO SCH (20:23)
[2018-09-21] MEDS: ACETAMINOPHEN 325 MG TAB PO PRN (20:45)
[2018-09-21] MEDS: MIDODRINE HCL 10 MG TAB PO SCH (22:57)
[2018-09-21] MEDS: MELATONIN 3 MG TAB PO PRN (22:58)
[2018-09-22] MEDS: ONDANSETRON 4 MG/2 ML VIAL IVP PRN ×2 (03:11→08:30)
[2018-09-22] MEDS: MIDODRINE HCL 10 MG TAB PO SCH ×3 (05:59→21:32)
[2018-09-22] MEDS: BACLOFEN 10 MG TAB PO PRN ×3 (05:59→21:33)
[2018-09-22] MEDS: HYDROCORTISONE 100 MG/2 ML VIAL IVP SCH ×2 (05:59→21:30)
[2018-09-22 06:01] LABS: PLATELET COUNT 46 10^3/uL (150-400)
[2018-09-22] MEDS ORDERED: PROTOCOL POTASSIUM 1 DOSE MISC PRN (08:02)
[2018-09-22] MEDS ORDERED: POTASSIUM CL 10 MEQ TAB PO ONE (08:03)
[2018-09-22] MEDS: ERTAPENEM 1 GM in NS 100 ML IV SCH (08:29)
[2018-09-22] MEDS: SENNOSIDES/DOCUSATE SODIUM TAB PO SCH ×2 (08:30→21:32)
[2018-09-22] MEDS ORDERED: POTASSIUM CL 20 MEQ TAB PO ONE ×2 (08:53→13:15)
--- NOTE | 2018-09-22 10:26 | PDINTPN ---
Therapeutic Program Worker Progress Note Assessment/Plan: ASSESSMENT 68 yo female with MS admitted with septic shock secondary to ecoli UTI complicated by ecoli bacteremia # septic shock. resolved # UTI # ecoli bacteremia # encephalopathy # multiple sclerosis # thrombocytopenia. Sepsis coagulopathy. No risk factors for Chuck, DIC panel negative. Improving # leukocytosis. infection plus steroids # MIKEY. SCr trending down # type 2 NSTEMI. demand from sepsis. TTE without focal wall motion abnormalities # leg swelling. TTE this admit without CHF. was on HCTZ as OP for swelling, NOT HTN # Hypokalemia. present on admission. due to HCTZ PLAN # continue ertapenem, narrow as abler per ID # wean midodrine from 20 to 10 mg TID, if BP stable overnight will d/c midodrine # hydrocortisone 30 mg Q12 today last dose tomorrow AM then stop # palliative care consult per pt and family # baclofen for MS (OP med) # suggest against HCTZ for leg swelling as this was likely cause of hypokalemia and is not an effective diuretic for hypervolemia # suggest OP sleep study to screen for DEBBIE given leg swelling and normal TTE combined with MS and neuromuscular weakness # if diuretics are needed as OP, consider lasix 20-40 mg oral combined with spironolactone 25 mg daily for k sparing effect # keep RIJ in for now, will dc once clinically improved # downgrade to medsurg no tele # Feeding - advance diet as tolerated # Analgesia APAP, # Sedation none # Thromboprophylaxis - SCDs, hold hep due to thrombocytopenia # Head of bed elevated # Ulcer prophylaxis - NA # Glucose SSI # Skin no skin breakdown # Delirium - delirium precautions 09/22/18 13:15 Subjective: Required low-dose norepinephrine overnight. Midodrine started. Blood pressure improvement today. Less confused. No fevers, chills, nausea, vomiting. Appetite is slowly returning. Objective: Vital Signs Temp Pulse Resp BP Pulse Ox 36.5 C 58 L 15 143/67 H 94 09/22/18 08:00 09/22/18 08:00 09/22/18 08:00 09/22/18 08:00 09/22/18 08:00 Laboratory Results 09/22/18 05:25 09/22/18 05:25 03/18/19 03/19/19 03/20/19 05:59 05:59 05:59 Intake Total 4700 2326 Output Total 650 1300 Balance 4140 1026 PT 19.7 SEC (12.0-15.0) H 09/21/18 08:30 INR 1.76 (0.83-1.16) H 09/21/18 08:30 Physical Exam - Physical Exam General Appearance: alert, no apparent distress EENT: PERRL/EOMI, normal ENT inspection, pharynx normal Neck: non-tender, full range of motion Respiratory: chest non-tender, lungs clear Cardiac/Chest: normal peripheral pulses, regular rate, rhythm, edema Abdomen: normal bowel sounds, non-tender Back: Normal inspection Skin: normal color, warm/dry, No cyanosis Extremities: pedal edema, swelling, No calf tenderness Neuro/Psych: no motor/sensory deficits, normal mood/affect, oriented x 3 ICD10 Worksheet Patient Problems: Problems Problem Status Onset Hypotension Acute Sepsis Acute Septic shock Acute Urinary tract infection Acute
--- NOTE | 2018-09-22 10:35 | PCMIDPN ---
Assessment/Plan: Assessment/Plan: * Septic shock associated with E coli bacteremia likely of urinary etiology: Continued clinical improvement with IV antibiotics and care of sepsis. Urinary E coli isolate is susceptible to ceftriaxone and fluoroquinolones. Will resume ceftriaxone tomorrow as patient has received dose of ertapenem today. Elevated white blood cell count likely represents appropriate response to sepsis and use of hydrocortisone. Will continue discussions with patient and family regarding completion of treatment with consideration for oral fluoroquinolone as this would obviate need for PICC line taking into account potential side effects of fluoroquinolones. * Elevated LFTs: Likely associated with sepsis and hypotension. 09/22/18 10:32 09/22/18 10:35 Subjective: Patient sitting up in chair today. Still with significant mobility restrictions necessitating Loyd catheter. Nausea persists although patient with improved appetite. Objective: Vital Signs Temp Pulse Resp BP Pulse Ox 36.5 C 58 L 15 143/67 H 94 09/22/18 08:00 09/22/18 08:00 09/22/18 08:00 09/22/18 08:00 09/22/18 08:00 Laboratory Results 09/22/18 05:25 09/22/18 05:25 09/21/18 09/22/18 09/23/18 05:59 05:59 05:59 Intake Total 4790 2326 Output Total 650 1300 Balance 4140 1026 Ertapenem # 2, antibiotics # 3 Urine culture greater than 100,000 E coli with susceptibility profile been reviewed Blood cultures 2/2 E coli with susceptibility profile pending Laboratory Tests 09/22/18 05:25 Total Bilirubin 0.6 AST 213 H ALT 304 H Alkaline Phosphatase 112 - Physical Exam General Appearance: alert, no apparent distress, non-toxic EENT: No scleral icterus, No thrush, No conjunctival petechiae Respiratory: lungs clear, No respiratory distress Cardiac/Chest: regular rate, rhythm Extremities: No inflammation Abdomen: non-tender, No distended - Line/s other Lines: other (Right IJ triple-lumen catheter), No drainage, No erythema ICD10 Worksheet Patient Problems: Problems Problem Status Onset Hypotension Acute Sepsis Acute Septic shock Acute Urinary tract infection Acute
--- NOTE | 2018-09-22 12:03 | ASMTCMCOM ---
CM Note CM Note Notes: Met with pt's daughter and her significant other to provide support and discuss discharge planning. At this time PT/OT rec inpt rehab. Rehab order in. Family interested in establishing advanced directives once pt is more clear and able to engage in discussion. Family reports they are going to visit inpt rehab facility. CM provided lists of home care. Pt is active with [facility] for home PT 2x/week. CM submit updates. CM to follow. Plan: inpt rehab pending acceptance/ family choice. Date Signed: 09/22/2018 12:03 PM Electronically Signed By:JAIMEE Delatorre
[2018-09-22] MEDS ORDERED: HYDROCORTISONE 100 MG/2 ML VIAL IVP SCH (16:00)
[2018-09-22] MEDS: MELATONIN 3 MG TAB PO PRN (21:33)
[2018-09-23] MEDS: BACLOFEN 10 MG TAB PO PRN ×2 (05:27→17:13)
[2018-09-23 06:00] LABS: PLATELET COUNT 46 10^3/uL (150-400)
[2018-09-23] MEDS: HYDROCORTISONE 100 MG/2 ML VIAL IVP SCH (08:25)
[2018-09-23] MEDS: MIDODRINE HCL 10 MG TAB PO SCH (08:27)
[2018-09-23] MEDS: SENNOSIDES/DOCUSATE SODIUM TAB PO SCH ×2 (08:29→20:46)
--- NOTE | 2018-09-23 10:06 | HOSPPROG ---
Hospitalist Progress Note Assessment/Plan: # e. coli bacteremia d/t UTI - cont rocephin per ID - change to FQ at some point # septic shock d/t above - resolving - stop midodrine after dose this am - if BP stable today, ok to dc central line # multiple sclerosis - was on hydrocortisone to prevent exacerbation - stop steroids today - cont baclofen # coagulopathy, thrombocytopenia - likely mild DIC # type 2 NSTEMI - echo ok - aspirin, check lipids - outpatient follow up # LE edema - was on hctz at home # hepatitis - likely shock liver # MIKEY - resolved # metabolic encephalopathy - improved # debility - d/t underlying MS and acute illness - inpatient rehab consult placed # pall care consult per family Subjective: patient doing better; still very weak; eating Objective: Vital Signs Temp Pulse Resp BP Pulse Ox 36.8 C 65 18 105/69 94 09/23/18 07:39 09/23/18 07:39 09/23/18 07:39 09/23/18 07:39 09/23/18 07:39 Microbiology 09/20/18 11:30 Urine Culture - Final Urine,Catheterized Escherichia Coli Laboratory Results 09/23/18 05:50 09/23/18 05:50 09/22/18 09/23/18 09/24/18 05:59 05:59 05:59 Intake Total 2326 1300 Output Total 1300 900 Balance 1026 400 PT 19.7 SEC (12.0-15.0) H 09/21/18 08:30 INR 1.76 (0.83-1.16) H 09/21/18 08:30 tommy reviewed CXR personally reviewed - Physical Exam Constitutional: other (comfortable) Ears, Nose, Mouth, Throat: other (R IJ) Cardiovascular: regular rate and rhythym, no murmur, rub, or gallop Respiratory: no respiratory distress, no rales or rhonchi Gastrointestinal: normoactive bowel sounds, soft, non-tender abdomen, no palpable masses ICD10 Worksheet Patient Problems: Problems Problem Status Onset Hypotension Acute Sepsis Acute Septic shock Acute Urinary tract infection Acute
--- NOTE | 2018-09-23 14:59 | ASMTCMCOM ---
CM Note CM Note Notes: Pt accepted by [facility], awaiting insurance authorization. DC Plan: [facility] Date Signed: 09/23/2018 02:58 PM Electronically Signed By:Hermelinda Mijares RN
--- NOTE | 2018-09-23 17:37 | PCMIDPN ---
Assessment/Plan: Assessment: 68-year-old woman with E coli bloodstream infection secondary to pyelonephritis. Overall she continues to improve with normalization of laboratory values in addition to subjective improvement. States the left-sided abdominal pain present prior to admission has resolved to near completion. Expect will be able to change to oral quinolone therapy at discharge as she has not had antibiotic allergies or severe side effects in the past, no interactions with her MS medication, and probable urinary tract source with good concentration of quinolones. 1. E coli bloodstream infection likely secondary to pyelonephritis 2. Pyelonephritis, improved 3. Septic shock present on admission, resolved 4. History of multiple sclerosis, current treatment with interferon beta 5. Transaminase elevation, likely secondary to shock liver, improved 6. Thrombocytopenia, likely secondary sepsis; stable Plan: 1. Continue ceftriaxone 2 g daily while inpatient 2. Expect a step-down to oral quinolone therapy at discharge to complete therapy 3. Reviewed in detail potential side effects of beta-lactam antibiotics to include: allergy, rash, nausea, antibiotic-associated diarrhea, Clostridioides difficile colitis. Huseyin Villalobos MD Infectious Diseases 09/23/18 17:38 Subjective: No fever or chills in the past 24-hours. Tolerating oral diet with solids and liquids. No diarrhea, nausea, or other GI symptoms. No rash. Improved since admission but not back to baseline health. Objective: Vital Signs Temp Pulse Resp BP Pulse Ox 36.8 C 73 16 106/72 94 09/23/18 15:17 09/23/18 15:17 09/23/18 15:17 09/23/18 15:17 09/23/18 15:17 Microbiology 09/20/18 11:30 Urine Culture - Final Urine,Catheterized Escherichia Coli Laboratory Results 09/23/18 05:50 09/23/18 05:50 09/22/18 09/23/18 09/24/18 05:59 05:59 05:59 Intake Total 2326 1300 Output Total 1300 900 Balance 1026 400 Medications Generic Name Dose Route Start Last Admin Trade Name Freq PRN Reason Stop Dose Admin Ceftriaxone Sodium 2 gm/ 50 mls @ 100 mls/hr 09/23/18 09:00 09/23/18 10:21 Sodium Chloride IV 10/23/18 08:59 50 mls DAILY [facility] Protocol Discontinued Medications Generic Name Dose Route Start Last Admin Trade Name Freq PRN Reason Stop Dose Admin Ceftriaxone Sodium/Dextrose 50 mls @ 100 mls/hr 09/20/18 10:21 09/20/18 10:59 Rocephin 1 Gm (Premix) IV 09/20/18 10:50 50 mls EDNOW ONE Protocol Hydrocortisone 30 mg 09/22/18 21:00 09/23/18 08:25 Solucortef IVP 09/23/18 10:00 30 mg Q12 [facility] Ceftriaxone Sodium 2 gm/ 50 mls @ 100 mls/hr 09/21/18 09:00 09/21/18 08:34 Sodium Chloride IV 10/21/18 08:59 50 mls DAILY [facility] Protocol Ceftriaxone Sodium/Dextrose 50 mls @ 100 mls/hr 09/20/18 15:29 09/20/18 16:27 Rocephin 1 Gm (Premix) IV 09/20/18 15:58 50 mls ONCE ONE Protocol Ceftriaxone Sodium/Dextrose 50 mls @ 100 mls/hr 09/21/18 09:00 Rocephin 1 Gm (Premix) IV 10/21/18 08:59 DAILY [facility] Protocol Ertapenem 1 gm/ Sodium 100 mls @ 200 mls/hr 09/21/18 12:30 09/22/18 08:29 Chloride IV 10/21/18 12:29 100 mls DAILY [facility] Protocol Microbiology 09/20/18 11:30 Urine,Catheterized Urine Culture - Final Escherichia Coli 09/20/18 09:00 Blood Blood Culture - Final 09/20/18 09:00 Blood Blood Panel (PCR) - Final Escherichia Coli Escherichia Coli 09/20/18 08:45 Blood Blood Culture - Final Escherichia Coli Laboratory Tests 09/21/18 09/21/18 09/22/18 05:50 08:30 05:25 WBC 20.17 H 28.74 H Hgb 12.4 L 11.8 L Plt Count 36 L 46 L Creatinine AST ALT Total Protein Albumin 09/22/18 09/23/18 09/23/18 05:25 05:50 05:50 WBC 24.55 H Hgb 12.0 L Plt Count 46 L Creatinine 0.8 0.6 AST 213 H 86 H ALT 304 H 225 H Total Protein 4.6 L 4.6 L Albumin 2.3 L 2.1 L - Physical Exam General Appearance: no apparent distress, non-toxic EENT: No scleral icterus Respiratory: lungs clear, No respiratory distress, No accessory muscle use, No crackles, No wheezing Neck: supple Cardiac/Chest: regular rate, rhythm, No bradycardia, No tachycardia, No diastolic murmur, No systolic murmur Extremities: No erythema Abdomen: normal bowel sounds, non-tender, soft, No distended, No guarding, No peritoneal signs Skin: No erythema Neuro/Psych: alert, normal mood/affect, oriented x 3, No confused - Time Spent With Patient Time Spent with Patient: greater than 25 minutes Time Spent with Patient: Greater than 25 minutes spent on this patients care, greater than 50% of time spent counseling, educating, and coordinating care regarding the above mentioned plan. ICD10 Worksheet Patient Problems: Problems Problem Status Onset Hypotension Acute Sepsis Acute Septic shock Acute Urinary tract infection Acute
[2018-09-23] MEDS: ATORVASTATIN CALCIUM 20 MG TAB PO SCH (20:46)
[2018-09-23] MEDS: ACETAMINOPHEN 325 MG TAB PO PRN (20:46)
[2018-09-23] MEDS: MELATONIN 3 MG TAB PO PRN (22:27)
[2018-09-23] MEDS: DICLOFENAC SODIUM 1% 100 GM GEL TP PRN (23:24)
[2018-09-24] MEDS: BACLOFEN 10 MG TAB PO PRN ×3 (08:10→20:56)
[2018-09-24] MEDS: ASPIRIN EC 81 MG TAB PO SCH (08:36)
[2018-09-24] MEDS: SENNOSIDES/DOCUSATE SODIUM TAB PO SCH ×2 (08:37→23:04)
[2018-09-24 08:46] LABS: PLATELET COUNT 54 10^3/uL (150-400)
[2018-09-24] MEDS ORDERED: POTASSIUM CL 10 MEQ TAB PO ONE (09:00)
--- NOTE | 2018-09-24 13:21 | HOSPPROG ---
Hospitalist Progress Note Assessment/Plan: # septic shock 2/2 UTI - resolved -dc central line # e. coli bacteremia 2/2 UTI - cont rocephin per ID - can likely d/c on oral FQ at dc # multiple sclerosis - s/p hydrocortisone - cont baclofen, which pt states has been helpful for muscle spasm - per family request, neurology consult in am, some concern abt MS flare in setting of illness # coagulopathy, thrombocytopenia - likely mild DIC, now stable # type 2 NSTEMI - likely demand ischemia in setting of acute illness. echo ok - cont aspirin, check lipids (LDL44, HDL 15, will discuss statin with pt) - outpatient follow up # LE edema - was on hctz at home, likely resume at d/c # hepatitis - likely shock liver, improving # MIKEY - resolved # metabolic encephalopathy - improved # debility - d/t underlying MS and acute illness - inpatient rehab consult placed # pall care discussion today # dispo - likely to inpt rehab tomorrow, awaiting insurance approval Subjective: Pt feels much better. She reports some muscle spasms in her right leg, says tylenol and baclofen help. No fevers/chills. Very weak. Looking forward to inpt rehab to get stronger. Eating/drinking well. Objective: Vital Signs Temp Pulse Resp BP Pulse Ox 36.6 C 70 18 133/84 H 94 09/24/18 07:59 09/24/18 12:00 09/24/18 12:00 09/24/18 12:00 09/24/18 12:00 Laboratory Results 09/24/18 08:20 09/24/18 08:20 09/23/18 09/24/18 09/25/18 05:59 05:59 05:59 Intake Total 1300 500 Output Total 900 200 Balance 400 300 PT 19.7 SEC (12.0-15.0) H 09/21/18 08:30 INR 1.76 (0.83-1.16) H 09/21/18 08:30 - Physical Exam Constitutional: no apparent distress Eyes: PERRL Ears, Nose, Mouth, Throat: moist mucous membranes Cardiovascular: regular rate and rhythym Respiratory: no respiratory distress, clear to auscultation Gastrointestinal: normoactive bowel sounds, soft, non-tender abdomen Skin: warm Musculoskeletal: full muscle strength Neurologic: AAOx3 Psychiatric: interacting appropriately ICD10 Worksheet Patient Problems: Problems Problem Status Onset Hypotension Acute Sepsis Acute Septic shock Acute Urinary tract infection Acute
[2018-09-24] MEDS: ACETAMINOPHEN 325 MG TAB PO PRN ×2 (14:49→20:57)
--- NOTE | 2018-09-24 18:04 | PCMIDPN ---
Assessment/Plan: Assessment: 68-year-old woman with E coli bloodstream infection secondary to pyelonephritis. Continued overall improvement with ongoing changes to her verbalization and spasticity and her left lower extremity likely related to the fact that she had a pro inflammatory insult with the infection at the same time she is now approaching the date of re-dosing of her interferon beta. Can continue ceftriaxone while inpatient and transition to a Cipro as below at discharge. If she has poor IV access can transition to ciprofloxacin today. 1. E coli bloodstream infection likely secondary to pyelonephritis; resolved 2. Pyelonephritis, improved 3. Septic shock present on admission, resolved 4. History of multiple sclerosis, current treatment with interferon beta 5. Transaminase elevation, likely secondary to shock liver, improved 6. Thrombocytopenia, likely secondary sepsis; stable Plan: 1. Continue ceftriaxone 2 g daily 2. Can transition to ciprofloxacin 500 mg p.o. Twice daily through 09/30/2018 3. Reviewed in detail potential side effects of beta-lactam antibiotics to include: allergy, rash, nausea, antibiotic-associated diarrhea, Clostridioides difficile colitis. 4. No contraindication from infectious disease for her to receive her interferon beta infusion on times a Friday if indicated after discussion with her neurologist, Family calling her neurologist today Huseyin Villalobos MD Infectious Diseases 09/24/18 17:59 Subjective: No fever or chills in the past 24-hours. She is overall improving from her severe infection present on admission. She does have spasms in her left leg that are worse today, but improving as she gets back to her usual baclofen dosing and the pain is improving with Tylenol. She is having a bit more speech difficulties today. She is due to receive her interferon beta infusion on Friday and at times can have worsening of her MS symptoms as she approaches her re-dosing date. Objective: Vital Signs Temp Pulse Resp BP Pulse Ox 36.8 C 87 18 140/73 H 90 L 09/24/18 16:00 09/24/18 16:00 09/24/18 16:00 09/24/18 16:00 09/24/18 16:00 Laboratory Results 09/24/18 08:20 09/24/18 08:20 09/23/18 09/24/18 09/25/18 05:59 05:59 05:59 Intake Total 1300 500 Output Total 900 200 Balance 400 300 Medications Generic Name Dose Route Start Last Admin Trade Name Sathish PRN Reason Stop Dose Admin Ceftriaxone Sodium 2 gm/ 50 mls @ 100 mls/hr 09/23/18 09:00 09/24/18 09:49 Sodium Chloride IV 10/23/18 08:59 50 mls DAILY [facility] Protocol Microbiology 09/20/18 11:30 Urine,Catheterized Urine Culture - Final Escherichia Coli 09/20/18 09:00 Blood Blood Culture - Final 09/20/18 09:00 Blood Blood Panel (PCR) - Final Escherichia Coli Escherichia Coli 09/20/18 08:45 Blood Blood Culture - Final Escherichia Coli Laboratory Tests 09/22/18 09/23/18 09/24/18 05:25 05:50 08:20 WBC 28.74 H 24.55 H 14.03 H Plt Count 46 L 46 L 54 L Absolute Seg Neuts 19.64 H 9.40 H Absolute Band Neuts 2.46 H 1.12 H - Physical Exam General Appearance: no apparent distress, non-toxic EENT: No scleral icterus Respiratory: No respiratory distress, No accessory muscle use Neck: full range of motion, supple Skin: No erythema Neuro/Psych: alert, oriented x 3, depressed affect, No confused - Time Spent With Patient Time Spent with Patient: greater than 35 minutes (Discussion with patient and family at bedside regarding suspected outcome with E coli bloodstream infection from pyelonephritis, the fact that her interferon beta for MS can be given in the setting of a resolving infection this is not immune suppressive and is in fact immune stimulatory, plan for transition to oral antibiotics) Time Spent with Patient: Greater than 35 minutes spent on this patients care, greater than 50% of time spent counseling, educating, and coordinating care regarding the above mentioned plan. ICD10 Worksheet Patient Problems: Problems Problem Status Onset Hypotension Acute Sepsis Acute Septic shock Acute Urinary tract infection Acute
[2018-09-24] MEDS: ATORVASTATIN CALCIUM 20 MG TAB PO SCH (20:57)
[2018-09-24] MEDS: MELATONIN 3 MG TAB PO PRN (20:57)
[2018-09-25] MEDS ORDERED: POTASSIUM CL 10 MEQ TAB PO ONE ×3 (00:35→07:00)
[2018-09-25] MEDS: DICLOFENAC SODIUM 1% 100 GM GEL TP PRN ×2 (00:53→20:13)
[2018-09-25 05:24] LABS: PLATELET COUNT 81 10^3/uL (150-400)
[2018-09-25] MEDS: BACLOFEN 10 MG TAB PO PRN ×2 (06:18→20:13)
[2018-09-25] MEDS: ACETAMINOPHEN 325 MG TAB PO PRN ×2 (06:18→21:34)
[2018-09-25] MEDS: ASPIRIN EC 81 MG TAB PO SCH (07:52)
[2018-09-25] MEDS: SENNOSIDES/DOCUSATE SODIUM TAB PO SCH ×2 (07:54→20:12)
[2018-09-25] MEDS: CIPROFLOXACIN 500 MG TAB PO SCH ×2 (10:08→20:12)
--- NOTE | 2018-09-25 10:32 | NEUROPROG ---
Assessment: [id number] - Neurology Consult: - CC: Possible MS Flare - HPI: 09/25/18: Pt has long-standing multiple sclerosis followed by Dr. Bach in [place], [place]. She has baseline right arm/leg weakness from MS. Pt admitted to [facility] on 09/20/18 for confusion and low blood pressure. She had preceding N/V. In the [facility] ER blood pressure was 69/55. Pt felt on 09/20/18 to have septic shock and acute renal injury. She was eventually found to have E coli in her bloodstream secondary to pyelonephritis. She also had thrombocytopenia (likely mild DIC), NSTEMI. Pt noted a feeling of generalized weakness with her infection (bilateral weakness). Her family wanted neurology to see her to evaluate for any flare of her multiple sclerosis so I saw the patient on . Neurologic exam showed generalized weakness worse on the right. I recommended to pt she get a brain MRI wwo but she declined reporting it was too uncomfortable for her to get the MRI. At this time given she has an acute infection that likely explains her worsening weakness I would not recommend any steroids which would weaken her immune system. If she is having an MS flare then steroids would seem to risky at this time due to underlying infection. Steroids also does not change prison recovery so is not critical. Pt told to f/u with her outpatient neurologist after hospital discharge. Agree with plan for rehab and treating infection. Neurology will sign off. - PMHx: multiple sclerosis, DVT - Home Meds: plegridy, zocor, HCTZ, diclofenac, baclofen, aspirin - SHx: no tobacco FHx: NC - ROS: Pt denied acute fever, total vision loss, active severe chest pain, respiratory failure, total body severe rash, total bowel/bladder incontinence, psychosis, active seizures, or active bleeding - O: VS reviewed General: Alert Eyes: Fundoscopic exam not able to visualize optic disks CV: Heart RRR, no murmur, no carotid bruit Lungs: Clear to auscultation bilaterally, no rhonchi or rales Neuro: - Mental: . Oriented x person/place/date . concentration appears normal . speech fluency/comprehension normal . memory appears normal . fund of knowledge appear intact - Cranial Nerves: . II: PERRL, VFFTC . III/IV/: EOMI, no nystagmus, normal smooth pursuits, no Ptosis . V: facial sensation intact to LT . VII: face symmetric to eye closure and smile . VIII: hearing intact to conversation . IX/X: uvula raises symmetrically . XI: SCM 5/5 B/L strength . XII: tongue protrudes midline w/nl strength - Motor: . Tone: normal tone in all 4 extremity . Strength: general weakness, right arm/leg weaker than left side - Reflexes: B/L bic 2/4 - Sensory: all 4 extremity intact to light touch - Coord: right distal hand discoordinated (long standing finding per patient) - Gait: deferred - Labs: 09/25/18- CBC WBC 11.9 Hgb 34.1 Plt 81L - Rads: 09/20/18- CXR: Status post placement of a right IJ central venous catheter, which terminates in the high right atrium. There is no evidence of a pneumothorax. 2. The cardiac size is upper normal, and the pulmonary vasculature is redistributed. This could represent increasing pulmonary venous congestion and/or AP recumbent changes. (I Personally visualized the images on ) - Assessment: 1. Sepsis from E Coli Pyelonephritis - 2. Multiple Sclerosis - Plan: - Agree with ID and hospitalist plan of care - Pt declined brain MRI - I do not suspect her generalized weakness is from an MS flare but more likely from her septic infection in setting of chronic MS, agree with plan to treat infx and send pt to rehab, she can f/u with her outpatient neurologist afterwards to reassess her MS and determine any treatment changes - I do not recommend steroids as it can worsen her underlying infection and it seems unlikely she is having a new MS flare, use of steroids also does not change prison recovery - Neurology will sign off Objective: Vital Signs Temp Pulse Resp BP Pulse Ox 36.9 C 89 20 132/75 H 90 L 09/25/18 07:22 09/25/18 07:22 09/25/18 07:22 09/25/18 07:22 09/25/18 07:22 Laboratory Results 09/25/18 04:40 09/25/18 04:40 09/24/18 09/25/18 09/26/18 05:59 05:59 05:59 Intake Total 500 Output Total 200 1800 Balance 300 -1800 PT 19.7 SEC (12.0-15.0) H 09/21/18 08:30 INR 1.76 (0.83-1.16) H 09/21/18 08:30 Allergies/Adverse Reactions: No Known Allergies Allergy (Unverified 10/11/16 15:07)
--- NOTE | 2018-09-25 11:45 | ASMTCMCOM ---
CM Note CM Note Notes: Received call from Rosalina at [facility], they have ins authorization. They can take pt on Friday, notified. Cm discussed transportation with family and they agree to pay for [facility] van. DC Plan: [facility] Date Signed: 09/25/2018 11:44 AM Electronically Signed By:Hermelinda Mijares RN
--- NOTE | 2018-09-25 16:45 | HOSPPROG ---
Hospitalist Progress Note Assessment/Plan: # septic shock 2/2 UTI - resolved -central line d/c'd yest # e. coli bacteremia 2/2 UTI - rocephin transitioned to po cipro today # multiple sclerosis - s/p hydrocortisone - cont baclofen, which pt states has been helpful for muscle spasm - per family request and concern for MS flare, neurology consult today, no change in management advised # coagulopathy, thrombocytopenia - likely mild DIC, now stable # type 2 NSTEMI - likely demand ischemia in setting of acute illness. echo ok - cont aspirin, check lipids (LDL 44) - outpatient follow up # LE edema - was on hctz at home, can likely resume at d/c though may need K replacement # hepatitis - likely shock liver, improving # MIKEY - resolved # metabolic encephalopathy - improved # debility - d/t underlying MS and acute illness - inpatient rehab planned # pall care discussion today # dispo - cont inpt, approved by insurance for transfer to [facility]pt rehab tomorrow Subjective: Pt feels ok, very weak. No pain. Spasm in leg responsive to baclofen. No fevers/chills. No N/V. Taking po well. Has a lot of family support. Objective: Vital Signs Temp Pulse Resp BP Pulse Ox 36.5 C 89 16 95/59 L 92 09/25/18 15:03 09/25/18 15:03 09/25/18 15:03 09/25/18 15:03 09/25/18 15:03 Laboratory Results 09/25/18 04:40 09/25/18 04:40 09/24/18 09/25/18 09/26/18 05:59 05:59 05:59 Intake Total 500 Output Total 200 1800 Balance 300 -1800 PT 19.7 SEC (12.0-15.0) H 09/21/18 08:30 INR 1.76 (0.83-1.16) H 09/21/18 08:30 - Physical Exam Constitutional: no apparent distress Eyes: PERRL Ears, Nose, Mouth, Throat: moist mucous membranes Cardiovascular: regular rate and rhythym Respiratory: no respiratory distress Gastrointestinal: normoactive bowel sounds, soft, non-tender abdomen Skin: warm Musculoskeletal: generalized weakness Neurologic: AAOx3 Psychiatric: interacting appropriately ICD10 Worksheet Patient Problems: Problems Problem Status Onset Hypotension Acute Sepsis Acute Septic shock Acute Urinary tract infection Acute
--- NOTE | 2018-09-25 17:12 | PCMIDPN ---
Assessment/Plan: Assessment: 68-year-old woman with E coli bloodstream infection secondary to pyelonephritis. Continued overall improvement with ongoing changes to her verbalization and spasticity and her left lower extremity likely related to the fact that she had a pro inflammatory insult with the infection at the same time she is now approaching the date of re-dosing of her interferon beta. Transition to oral ciprofloxacin to complete therapy. Will attempt to find a local neurologist to provide her Botox injections as she is due on October 12. No infectious disease clinic follow-up is necessary but we remain available if further questions arise. 1. E coli bloodstream infection likely secondary to pyelonephritis; resolved 2. Pyelonephritis, improved 3. Septic shock present on admission, resolved 4. History of multiple sclerosis, current treatment with interferon beta 5. Transaminase elevation, likely secondary to shock liver, improved 6. Thrombocytopenia, likely secondary sepsis; stable Plan: 1. Continue ciprofloxacin 500 mg p.o. Twice daily through 09/30/2018 2. No contraindication from infectious disease for her to receive her interferon beta infusion on times a Friday if indicated after discussion with her neurologist, Family calling her neurologist today 3. Reviewed in detail potential side effects of ciprofloxacin to include: allergy, rash, nausea, antibiotic-associated diarrhea, Clostridioides difficile colitis, tendinopathy (particularly Achilles' tendon), retinopathy, and the quinolone syndrome. Huseyin Villalobos MD Infectious Diseases 09/25/18 17:11 Subjective: Continues to be afebrile. Overall feels her strength is slowly improving. She continues to have muscle spasms in her left leg which typically is her good leg resulting in significant pain that interrupts asleep. She notes no diarrhea, rash, nausea or emesis. She has been changed to oral ciprofloxacin. Objective: Vital Signs Temp Pulse Resp BP Pulse Ox 36.5 C 89 16 95/59 L 92 09/25/18 15:03 09/25/18 15:03 09/25/18 15:03 09/25/18 15:03 09/25/18 15:03 Laboratory Results 09/25/18 04:40 09/25/18 04:40 09/24/18 09/25/18 09/26/18 05:59 05:59 05:59 Intake Total 500 Output Total 200 1800 Balance 300 -1800 Medications Generic Name Dose Route Start Last Admin Trade Name Freq PRN Reason Stop Dose Admin Ciprofloxacin 500 mg 09/25/18 10:00 09/25/18 10:08 Cipro PO 10/25/18 09:59 500 mg BID@1000,2000 [facility] Protocol Discontinued Medications Generic Name Dose Route Start Last Admin Trade Name Freq PRN Reason Stop Dose Admin Ceftriaxone Sodium 2 gm/ 50 mls @ 100 mls/hr 09/23/18 09:00 09/24/18 09:49 Sodium Chloride IV 10/23/18 08:59 50 mls DAILY [facility] Protocol Microbiology 09/20/18 11:30 Urine,Catheterized Urine Culture - Final Escherichia Coli 09/20/18 09:00 Blood Blood Culture - Final 09/20/18 09:00 Blood Blood Panel (PCR) - Final Escherichia Coli Escherichia Coli 09/20/18 08:45 Blood Blood Culture - Final Escherichia Coli Laboratory Tests 09/23/18 09/23/18 09/24/18 05:50 05:50 08:20 WBC 24.55 H 14.03 H Plt Count 46 L 54 L Creatinine 0.6 09/24/18 09/25/18 08:20 04:40 WBC 11.90 H Plt Count 81 L Creatinine 0.5 L - Physical Exam General Appearance: no apparent distress, non-toxic EENT: No scleral icterus Respiratory: No respiratory distress, No accessory muscle use Neck: supple Extremities: No erythema Skin: No erythema Neuro/Psych: alert, oriented x 3, depressed affect, No confused - Time Spent With Patient Time Spent with Patient: greater than 25 minutes (Discussed in detail antibiotic Plan with extended family and immediate family at bedside, including potential side effects of ciprofloxacin which will utilize to finish up therapy) Time Spent with Patient: Greater than 25 minutes spent on this patients care, greater than 50% of time spent counseling, educating, and coordinating care regarding the above mentioned plan. ICD10 Worksheet Patient Problems: Problems Problem Status Onset Hypotension Acute Sepsis Acute Septic shock Acute Urinary tract infection Acute
[2018-09-25] MEDS: ATORVASTATIN CALCIUM 20 MG TAB PO SCH (20:12)
[2018-09-26] MEDS ORDERED: POTASSIUM CL 10 MEQ TAB PO ONE (06:39)
[2018-09-26] MEDS: SENNOSIDES/DOCUSATE SODIUM TAB PO SCH (08:03)
[2018-09-26] MEDS: BACLOFEN 10 MG TAB PO PRN (08:04)
[2018-09-26] MEDS: ASPIRIN EC 81 MG TAB PO SCH (08:04)
[2018-09-26] MEDS: CIPROFLOXACIN 500 MG TAB PO SCH (09:33)
--- NOTE | 2018-09-26 11:05 | PDIAF ---
- Diagnosis Code Status: Full Code - Medication Management Additional Medication Instructions: Home medication regimen resumed. Patient's family will confer with patient's primary neurologist this Friday regarding the resumption of interferon. Ciprofloxacin to be taken until last dose on 2018 per ID's recommendation. Discharge Medications: electronically signed and located in the Home Medication List. - Orders Services needed: Physical Therapy, Occupational Therapy, Speech Language Pathologist Diet Recommendation: no restrictions on diet Diet Texture: Regular Texture Diet - Labs/Radiology BMP Date: 09/30/18 - Follow Up Care Current Providers and Referrals: Yanira Aguirre MD [Primary Care Provider] - As per Instructions
--- NOTE | 2018-09-26 11:24 | ASDISCHSUM ---
Discharge Information Plan Status:Inpatient Rehab Medically Cleared to Leave:09/26/2018 Discharge Date:09/26/2018 CM D/C Disposition:[facility] IP ADT D/C Disposition:[facility] IP Projected Discharge Date:09/25/2018 11:00 AM Transportation at D/C:Wheelchair Van Discharge Delay Reason: Follow-Up Date:09/25/2018 11:00 AM Discharge Slot: Final Diagnosis: Placement Information Referral Type:*Home Health Care Services Referral ID:[id number] Provider Name: Address 1: Phone Number: Address 2: Fax Number: City: Selection Factors: State: Referral Type:[facility] Referral ID:[id number] Provider Name:[facility] Address 1:[address] Phone Number: Address 2: Fax Number: [facility]:[place] Selection Factors: State:[place] Referral Type:Palliative Care Referral ID:[id number] Provider Name:[facility] Address 1:[address] Phone Number: Address 2: Fax Number: [facility]:[place] Selection Factors: State:[place] Patient Contact Information Contact Name:BRANDON Relationship: Address:[address] City:[place] Alternate Phone: [facility]/Zip Code:[place] [address] Email: Financial Information Financial Class:MARGIE Primary Plan Desc: OUT [facility] Primary Plan Number:[id number] Secondary Plan Desc: Secondary Plan Number: Assessment Information LACE LACE Length of stay for Answers: 4-6 days current admission Acuity / Level of Answers: Yes Care: Did the patient have an inpatient admission? Comorbidities - select Answers: History of falls all that apply Other Notes: MS, DVT, hypotension, p tyrone r sternal fx # of Emergency department Answers: 1-2 visits in the last 6 months Score: 12 Date Signed: 09/26/2018 11:21 AM Electronically Signed By:JARVIS Gallardo [facility] Progress Note CM Note CM Note Notes: Reviewed chart. Pt presented to the Emergency Department with nausea, vomiting and dehydration. History includes MS, falls, prior sternal fx, left DVT. Pt is and lives with her in [place]. Pt admitted for septic shock, hypotension. Discharge needs remain unclear at this time. Will await PT/OT evals. CM will continue to follow. Discharge Plan: To be determined Date Signed: 09/20/2018 03:25 PM Electronically Signed By:Sheri Marte RN [facility] Progress Note CM Note CM Note Notes: CM attempted to meet with pt's children to discuss advanced directives and discharge planning. Pt's children were not in the room but pt's was. CM provided with information on unskilled homecare, advanced directives, and [employer]. He said he would review information and CM would touch base tomorrow when children are visiting. At this time PT rec: SNF vs Inpt rehab; OT rec inpt rehab. CM to follow. Plan: SNF vs inpt rehab Date Signed: 09/21/2018 03:59 PM Electronically Signed By:JAIMEE Delatorre [facility] Progress Note CM Note CM Note Notes: Met with pt's daughter and her significant other to provide support and discuss discharge planning. At this time PT/OT rec inpt rehab. Rehab order in. Family interested in establishing advanced directives once pt is more clear and able to engage in discussion. Family reports they are going to visit inpt rehab facility. CM provided lists of home care. Pt is active with [facility] for home PT 2x/week. CM submit updates. CM to follow. Plan: inpt rehab pending acceptance/ family choice. Date Signed: 09/22/2018 12:03 PM Electronically Signed By:JAIMEE Delatorre [facility] Progress Note CM Note CM Note Notes: [facility], awaiting insurance authorization. DC Plan: Inpt Rehab Date Signed: 09/23/2018 02:58 PM Electronically Signed By:Hermelinda Mijares RN [facility] CM Progress Note CM Note CM Note Notes: Received call from Rosalina at [facility], they have ins authorization. They can take pt on Friday, notified. Cm discussed transportation with family and they agree to pay for [employer]. DC Plan: Inpt Rehab Date Signed: 09/25/2018 11:44 AM Electronically Signed By:Hermelinda Mijares RN Intervention Information
[2018-09-26 11:45] VITALS: BP 117/71
[2018-09-26] MEDS: ACETAMINOPHEN 325 MG TAB PO PRN (11:49)
--- NOTE | 2018-09-26 11:56 | ASMTDCNOTE ---
Case Management Discharge Discharge Order Complete? Answers: Yes Patient to Obtain Answers: Other Notes: [facility] inpt rehab Medications Transportation Arranged Answers: Other Notes: [place] [facility] will Pick (Date 09/26/2018 12:30 PM & Time) Faxed Final Orders Answers: Yes Agency/Facility Transfer Answers: Yes Report Printed & Faxed to Receiving Agency Family Notified Answers: Yes Discharge Comments Notes: Pt is discharging to [facility] inpt rehab today. Faxed D/C meds, order, facility transfer to [phone] and notified them. Annelise Alejandro is transporting. Date Signed: 09/26/2018 11:56 AM Electronically Signed By:JARVIS Gallardo
--- NOTE | 2018-09-26 12:38 | PCMIDPN ---
Assessment/Plan: Assessment: 68-year-old woman with E coli bloodstream infection secondary to pyelonephritis. She she continues to appear improved with overall low risk for relapse of pyelonephritis and bacteremia. Her primary concern at this point are her spastic MS symptoms and her need to find a close by physician who can administer Botox injections. Provider of name of the local neurologist who may be able to facilitate this part of her care for her, her and her have said that they will call the outpatient neurologist. 1. E coli bloodstream infection likely secondary to pyelonephritis; resolved 2. Pyelonephritis, improved 3. Septic shock present on admission, resolved 4. History of multiple sclerosis, current treatment with interferon beta 5. Transaminase elevation, likely secondary to shock liver, improved 6. Thrombocytopenia, likely secondary sepsis; stable Plan: 1. Continue ciprofloxacin 500 mg p.o. Twice daily through 09/30/2018 2. No contraindication from infectious disease for her to receive her interferon beta infusion on times a Friday if indicated after discussion with her neurologist, Family calling her neurologist today 3. Reviewed in detail potential side effects of ciprofloxacin to include: allergy, rash, nausea, antibiotic-associated diarrhea, Clostridioides difficile colitis, tendinopathy (particularly Achilles' tendon), retinopathy, and the quinolone syndrome. 4. No requirement for Infectious Disease follow-up although remain available on the inpatient outpatient setting if the need shall arise. Huseyin Villalobos MD Infectious Diseases 09/26/18 12:37 Subjective: Continues to be afebrile. Generally feeling improved with lingering symptom of generalized fatigue. She is plan to discharge to rehab today. Provided patient with name and contact number for local neurologist to may be able to facilitate Botox injections for which she is due on October 12. Herself nor her who was at bedside have any further questions related to the infection or antibiotics. Objective: Vital Signs Temp Pulse Resp BP Pulse Ox 36.6 C 75 16 117/71 91 L 09/26/18 11:44 09/26/18 11:44 09/26/18 11:44 09/26/18 11:44 09/26/18 11:44 Laboratory Results 09/25/18 04:40 09/26/18 05:10 09/25/18 09/26/18 09/27/18 05:59 05:59 05:59 Output Total 1800 1100 1400 Balance -1800 -1100 -1400 Medications Generic Name Dose Route Start Last Admin Trade Name Sathish PRN Reason Stop Dose Admin Ciprofloxacin 500 mg 09/25/18 10:00 09/26/18 09:33 Cipro PO 10/25/18 09:59 500 mg BID@1000,2000 VITALIY Protocol Discontinued Medications Generic Name Dose Route Start Last Admin Trade Name Sathish PRN Reason Stop Dose Admin Ceftriaxone Sodium 2 gm/ 50 mls @ 100 mls/hr 09/21/18 09:00 09/21/18 08:34 Sodium Chloride IV 10/21/18 08:59 50 mls DAILY VITALIY Protocol Ceftriaxone Sodium 2 gm/ 50 mls @ 100 mls/hr 09/23/18 09:00 09/24/18 09:49 Sodium Chloride IV 10/23/18 08:59 50 mls DAILY VITALIY Protocol Ceftriaxone Sodium/Dextrose 50 mls @ 100 mls/hr 09/20/18 15:29 09/20/18 16:27 Rocephin 1 Gm (Premix) IV 09/20/18 15:58 50 mls ONCE ONE Protocol Ceftriaxone Sodium/Dextrose 50 mls @ 100 mls/hr 09/21/18 09:00 Rocephin 1 Gm (Premix) IV 10/21/18 08:59 DAILY VITALIY Protocol Ertapenem 1 gm/ Sodium 100 mls @ 200 mls/hr 09/21/18 12:30 09/22/18 08:29 Chloride IV 10/21/18 12:29 100 mls DAILY VITALIY Protocol Microbiology 09/20/18 11:30 Urine,Catheterized Urine Culture - Final Escherichia Coli 09/20/18 09:00 Blood Blood Culture - Final 09/20/18 09:00 Blood Blood Panel (PCR) - Final Escherichia Coli Escherichia Coli 09/20/18 08:45 Blood Blood Culture - Final Escherichia Coli Laboratory Tests 09/22/18 09/24/18 09/24/18 05:25 08:20 08:20 WBC 28.74 H 14.03 H Hgb 12.2 L Plt Count 54 L Creatinine 0.5 L 09/25/18 04:40 WBC 11.90 H Hgb 11.9 L Plt Count 81 L Creatinine - Physical Exam General Appearance: no apparent distress, non-toxic EENT: No scleral icterus Respiratory: No respiratory distress, No accessory muscle use Neck: supple Skin: No erythema Neuro/Psych: alert, normal mood/affect, oriented x 3, No confused ICD10 Worksheet Patient Problems: Problems Problem Status Onset Hypotension Acute Sepsis Acute Septic shock Acute Urinary tract infection Acute
--- NOTE | 2018-09-26 17:54 | GDS ---
[f rep st] DISCHARGE SUMMARY DISCHARGE DIAGNOSES: 1. Septic shock. 2. Escherichia coli bacteremia. 3. Multiple sclerosis. HISTORY OF PRESENT ILLNESS: The patient is a pleasant 68-year-old female with a past medical history of multiple sclerosis who was admitted to [facility] on 09/20/2018, after developing urosepsis with E coli bacteremia, as well as septic shock. Fortunately, she responded rather well t o treatment and was able to come off vasopressors. Her cultures grew E coli, which was susceptible t o quinolone antibiotics. Infectious Disease was involved with her care during this hospitalization a s well. The current recommendation at the time of discharge is to continue with ciprofloxacin 500 mg twice a day throughout the end of the day until September 30, 2018. She does have underlying debility s econdary to her multiple sclerosis and will be transitioning today over to inpatient rehab at [facility] on [address]. HOSPITAL COURSE BY PROBLEM: 1. Septic shock: Resolved. Patient is off IV fluids as well as vasopressors at this point in time. 2. Bacteremia: E coli. Continue course of ciprofloxacin. 3. Thrombocytopenia: Possibly mild DIC related. Improved on last check from 54,000 to 81,000. 4. Lower extremity edema: I think we can resume hydrochlorothiazide at this time. There was some c oncern during the hospital course over possible sleep apnea and increased right-sided heart pressures that were noted on her echocardiogram. Consider further workup as an outpatient. 5. Transaminitis: Secondary to shock liver. Improved. 6. Acute kidney injury: Resolved. 7. Encephalopathy: This appears resolved as well. She seemed to be very clear on today's exam. 8. Multiple sclerosis: Discussed treatment with family. They will make contact with the patient's primary neurologist in regard to the timing of her next interferon dosing. 9. Hyperlipidemia: Atorvastatin. 10. Deep venous thrombosis prophylaxis: Improved mobility, so lower risk. I would defer to her magy ab physicians as to whether she needs to continue with Lovenox or heparin. DISPOSITION: Patient will transition to inpatient rehabilitation today. DISCHARGE PHYSICAL EXAMINATION: VITAL SIGNS: Temperature 36.6, blood pressure 111/82, heart rate 76 respirations 18 saturating 90% on room air. GENERAL: Patient appears comfortable she is awake, cassi rt, conversant, sitting in chair at the bedside. HEART: Regular. No murmurs appreciated. LUNGS: Clear on auscultation. Normal respiratory effort. ABDOMEN: Soft, nontender, nondistended. No CVA tenderness. : No Loyd catheter in place. EXTREMITIES: 1+ pitting edema both ankles, no calf pa in with palpation. NEUROLOGIC: The patient does have reduced strength of her extremities as compare d to her baseline. NOTABLE STUDIES: White blood cell count 11, hemoglobin 11.9, platelets 81. D-dimer 18. Fibrinogen 683. INR 1.7. Sodium 139, potassium 3.7, chloride 112, bicarb 24, BUN 25, creatinine 0.5, glucose 8 6. Blood culture from 09/20 positive for E coli. Urine culture from 09/20, also positive for E coli . Echocardiogram showed limited study secondary to body habitus. Normal left ventricular size and syst olic function with ejection fraction estimated at 58%. No focal wall motion abnormalities. Mild torrey ral regurgitation without prolapse. Mild to moderate tricuspid regurgitation with estimated normal P A pressures. No pericardial effusion noted. DISCHARGE MEDICATIONS: Acetaminophen 650 mg every 4 hours as needed, Zofran 4 mg every 4 hours as ne eded, aspirin 81 mg daily, Finacea 1 application topically twice a day as needed, baclofen 10 to 20 m g, vitamin D supplementation, ciprofloxacin 500 mg twice a day to be finished after the last dose , hydrochlorothiazide 25 mg daily, peginterferon 125 mcg subcutaneously every 14 days, MiraLAX 17 g daily, simvastatin 40 mg nightly, Senokot S 1 to 2 tabs twice a day as needed for constipation. DISCHARGE INSTRUCTIONS: Patient will be transitioned to inpatient physical therapy at [facility] at [place]. 40 minutes of time dedicated to discharge efforts. /[id number]/MODL
== END 2018-09-26 12:59 | DRG 871 ==
LOC: EDUNIT# → F2N 14:02 → F3E 09-22 14:44
PROVIDERS: ADMIT Internal Medicine; ATTEND Internal Medicine
DX: A41.51 Sepsis due to Escherichia coli [E. coli] (principal); R65.21 Severe sepsis with septic shock; K72.00 Acute and subacute hepatic failure without coma; N39.0 Urinary tract infection, site not specified; N17.9 Acute kidney failure, unspecified; G93.41 Metabolic encephalopathy; D69.6 Thrombocytopenia, unspecified; G35 Multiple sclerosis; E87.6 Hypokalemia; E87.1 Hypo-osmolality and hyponatremia; R74.0 Nonspecific elevation of levels of transaminase and lactic acid dehydrogenase [LDH]; I10 Essential (primary) hypertension; E78.5 Hyperlipidemia, unspecified; Z86.718 Personal history of other venous thrombosis and embolism; Z51.5 Encounter for palliative care; Z91.81 History of falling
CPT/HCPCS: 82435-PO; 82565-PO; 82947-PO; 84132-PO; 84295-PO; 84484-ER; 84520-PO; 85014-ER; 96374; 97110-GP; 97162-GP; 97167-GO; 97530-GO; 97530-GP; 97535-GO; J0696; J1335; J1720; J2405; J2550; J3480; P9041

== ENCOUNTER 2018-09-24 11:03 | Inpatient (IN) | payer BC ==
[2018-09-26] MEDS ORDERED: BACLOFEN 20 MG TAB PO ONE (14:25)
[2018-09-26] MEDS ORDERED: SENNOSIDES 17.6 MG/10 ML UDL PO PRN (15:23)
[2018-09-26] MEDS ORDERED: UREA 40% CREAM TP PRN (15:44)
[2018-09-26] MEDS: BACLOFEN 10 MG TAB PO PRN (19:55)
[2018-09-26] MEDS: SENNOSIDES 1 TAB PO SCH (19:56)
[2018-09-26] MEDS: ATORVASTATIN CALCIUM 20 MG TAB PO SCH (19:56)
[2018-09-26] MEDS: ACETAMINOPHEN 325 MG TAB PO PRN (19:56)
[2018-09-26] MEDS: CIPROFLOXACIN 500 MG TAB PO SCH (19:57)
[2018-09-26] MEDS ORDERED: CIPROFLOXACIN 500 MG TAB PO SCH (20:00)
[2018-09-26] MEDS: MELATONIN 3 MG TAB PO PRN (20:05)
[2018-09-27] MEDS: BACLOFEN 10 MG TAB PO PRN ×4 (00:59→20:10)
[2018-09-27] MEDS: MULTIVITAMINS 1 EACH TAB PO SCH (08:55)
[2018-09-27] MEDS: HYDROCHLOROTHIAZIDE 25 MG TAB PO SCH (08:55)
[2018-09-27] MEDS: CHOLECALCIFEROL VIT D3 2,000 UNITS TAB/CAP PO SCH (08:55)
[2018-09-27] MEDS: SENNOSIDES 1 TAB PO SCH ×2 (08:55→20:10)
[2018-09-27] MEDS: CIPROFLOXACIN 500 MG TAB PO SCH ×2 (08:56→20:10)
[2018-09-27] MEDS ORDERED: Herbals/Supplements -Info Only PO SCH (09:00)
[2018-09-27] MEDS ORDERED: ASPIRIN EC 81 MG TAB PO SCH (09:00)
[2018-09-27 09:01] LABS: PLATELET COUNT 155 10^3/uL (150-400)
[2018-09-27] MEDS: ENOXAPARIN 40 MG/0.4 ML SYR SC SCH (09:49)
--- NOTE | 2018-09-27 12:15 | PDGENHP ---
History and Physical History and Physical: History and Physical Date of Admission: 09/26/18 Date of Evaluation: 09/27/18 Time of evaluation: 10:30 am Referring Facility: [facility] Referring Physican: Dr. Go Impairment Group: 16 Debility Date on onset: 09/20/18 Rehabilitation Diagnosis: Debility 2/2 Sepsis and E.Coli Bacteremia Etiologic Diagnosis: Date of Surgery: None Consulting Physicians: Neurology Vern Box Infectious Disease Huseyin Villalobos HPI: Ms. Ca Matson is a 68 y/o female who was admitted to the IP Rehab floor on Transferred from [facility]. She was initially admitted there on 09/20 because she was feeling severe nausea/vomiting as well as confusion. She was so weak at home that when she tried to get up from the couch she slumped down to the ground and there was there until her daughter returned home to bring her to the hospital. In the ER was found to be hypotensive and demonstrating sepsis. She was found to have E.Coli bacteremia with source thought to be from the bladder. She was managed in the ICU requiring vasopressors and IV abx. During her time there, ID was consulted to provided treatment recommendations. She responded well to the medication and was transitioned over to oral ABX on 09/24. She is to continue on this medication until 09/30 per their recommendations. Neurology was also consulted given patient had increased weakness on her right side this is known to be weaker as a result of her MS history. Per their review they had suggested that a potential MRI would better determine if there was a co- existing flare but this was deferred by the patient 08/08 being uncomfortable. Per neurology this would likely not have changed their treatment course since steroids would have likely exacerbated her infection and it wont change the prison outcome. Family is working with outside primary neurologist to determine if continuation of Disease modifying (Beta-inferon)injections are ok to use at this time per ID note, no concerns on their part. They will likely be in touch Friday for decision since she was due on 09/26. Her hospital course was complicated by acute encephalopathy thought to be secondary to the severe sepsis, this resolved with treatment of the infection. She also had acute transaminitis and MIKEY again thought to be related to the severe sepsis. These have continued to improve. ROS: Denies - fevers/chills, change in vision, dry mouth, new skin rash, joint pain, heat/cold intolerance, change in swallow, change in hearing, heart murmurs/chest pain, sob, abdominal pain, Positive feeling of inability to drain the bladder, mildly weaker than prior, swelling, Slight pain in the groin of the left leg Feels like a pulled muscle Only when mobilizing in certain positions PSH: Cyst removal from the mouth PMH: MS x 39 years. DVT in 2016 treated with xeralto Spasticity Hyperlipidemia Current Problems Sepsis - resolved UTI with E.coli Bacetermia- on ABX Urinary Retention requiring catheterization Debility MS LE edema FH: Father/grandfather 2/2 [place] Mother of Sepsis/kidney failure SH: Lives with her in a home they own in [place]. They have made many adaptations including an accessible room on the first floor with a handicap bathroom. It has a ramp to the door with 1 step to enter. 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 Her works every day. Has 2 daughters neither live close but are very supportive. Med: Home Simavastatin 40 mg Multivitamin Biotin Plegarty HCTZ ASA 81mg Reports has been taking that since 2016 after she completed her xeralto For the LE clot. Not prescribed for her heart Baclofen -10mg tabs- took up to 10 tabs per day CBD Cream for her hands Urea Cream Azelic Acid Melatonin 3mg Hospital Ciprofloxacin 500mg BID until 09/30 ASA 81mg daily Tylenol 650mg PO q4hrs prn pain Atorvastatin 20mg qhs Baclofen 10-20 mg QID prn spasms Vitamin D 2000 units Daily Voltaren Gel 2gm QID PRN for her hand pain HCTZ 25mg Daily Meltonin 1.5mg po qhs prn Lovenox 40 mg Subq (started in rehab) Miralax 17gm po daily prn Multivitamin 1 tab daily Senna 1tab BID Urea cream qhs prn Allergies: None Had adverse reaction to fentanyl (per report consistent with side effect of nausea/vomiting. Images: Echo 09/23 Nomral LV Size and systolic function with EF at 58% and no focal wall abnormalities, Mild MR without MV prolapse, Mild TR with estimate normal PA pressures. No pericardial effusion EKG 09/20- Sinus rhythm leftward axis inferior Q wave noted. Incomplete R BBB, low voltage CXR 09/20 N o evidence of Pneumothorax, cardiac size in upper normal limit, pulmonary vasculature is redistributed which could represent pulmonary venous congestion of A/P recumbent changes. Labs: WBC 28.74 on 09/13 9.33 on 09/27/18 HG 11.8 on 09/13 10.8 on 09/27/18 Plt 46 on 09/13 155 on 09/27/18 Tranaminitis on 09/13 Improved with only slightly elevated ALT to 71 Alk Phos has been 112 to 138 through this course Mildly elevate trop during initial sepsis. Uculture and Blood culture both ++ for E.COLI PE Vitals BP 120/84, HR 84, RR 16 @91% on RA, Temp 98.1 Gen: very pleasant up in her chair, NAD EENT: MMM, good dentition, wearing glasses, no brusing around the face CV: RRR Bilateral LE Edema 1+ to 2+ pitting Chest: good aeration, no wheezing, no increased effort to breath, slight crackles at RLL- improved with multiple deep breaths Abd: soft, nt/nd, +BS throughout Skin: no area of skin breakdown over, Per RN no skin breakdown over heels or sacral region did have small blanchable erythema on coccyx covered with mepilex. Slightly brusing around the IJ site on the right side of the neck. Psych: euthymic Neuro: Intact Cranial nerves Normal Mental status, linear thought process, able to process information well, able to retrieve information and respond to all questions/commands Strength Right is much weaker than left (as per baseline) proximally in the shoulder on the right is 4+, biceps 4+, wrist 4-, fingers 2+, no dexterity or real extension with fingers Left arm 4+to 5 throughout public service officer is moderate, FF is 4- Right leg (in seated) Unable to lift leg, KE is 3+/5, DF 1 Left Leg (in seated) 3 for hip flexion, 4+ ke, 4+ df + tone throughout the BLE especially adductor MSK Good ROM of bilateral UE event through shoulders. Current Level of Function per Preadmit Screen I agree with this screen based on my current evaluation Grooming JOSEPHINE, Dressing Total A, Toileting MAXA, Bladder requiring IC, MAX A with transfers, Balance sitting Mod A, Max A for standing Impression: MS. Matson is a 68 y/o female with a known history of MS and right sided weakness who was admitted [facility] on 09/20 2/2 Septic shock 2/2 UTI and E.Coli Bacteremia. She had a complicated history secondary to hallucinations initially that have since resolved. She has not restrictions with regards to ability to participate with therapy. She was not initially placed on Lovenox during her acute care 2/2 platelets <50 although these have now resolved and she will be placed on PPX lovenox. Her goal is to work hard with our therapy team to regain her I prior to his hospitalization. She already has many adaptations in her home that will make her return home a real possibility. She also has great support from her Spouse and children. She only has 1 step to enter the home that will be challenging. She will benefit from participation with PT/OT for 3 hrs daily for 5-7 days per week. It is expected that she will remain in the rehab unit for 14 days. She has potential to make a good recovery and should be able to return home at the time of d/c but will likely require some home health services to include an OT and PT and potentially Nursing for support of bladder management. Plan: # Debility 2/2 severe sepsis and exacerbations of weakness from her MS. PT and OT will optimize her ADLs, transfers, mobility and stair negotiation. #Multiple Sclerosis - Usually receives plegarty q2 weeks. Last due on 09/26. ID said OK to continue. Family is checking with her Primary neurologist likely to have answer on 09/28 # Sepsis 2/2 E.coli Bactermia/UTI - Finishing her Oral ABX cipro on 09/30 as per ID recs. - Continue to monitor for S/Sx of infection # urinary Retention - Pt unclear if this is new might have had some prior - Will cath q4hrs given large volumes for now likely increased volumes 2/2 large amount of fluid resuscitation and restart of the HCTZ - Hopeful that will be able to resume good urinary excretion but might need a morning/night cath program at home? # Spasticity Takes baclofen and gets botox through neurology as outpt - Taking baclofen PRN this is how she used it at home. Started discussion about some scheduled dosing with intermittent PRN - Scheduled for Botox on 10/12 told her not to cancel that appt # Thrombocytopenia - Resolved as per labs on 09/27 # Transaminitis - Resolving per labs on 09/27 still slightly elevated ALT and AlkPhos # Anemia - Slightly drop on labs on 09/27. Will repeat on 09/29. Likely a combo significant resuscitation and acute illness - No evidence of bleeding on exam will monitor now that starting lovenox - May need to consider Fe Sulfate replacement. #History of LE DVT - Was on xeralto in 2016 was kept on ASA as prophylactic after that per patient - Will hold ASA and start on Lovenox dosing. #Hyperlipidemia - Continue on Statin # Follow Up - PCP - Neurology (in [facility])
--- NOTE | 2018-09-27 12:16 | PDOREHIP ---
Admission [facility] - Admission - 3 Day Assessment Period Admission Date/Day 1: 09/26/18 Day 2: 09/27/18 Day 3: 09/28/18 - Active Diagnoses Comorbidities and Co-existing Conditions at Admission: [id number]. None of the Above - Skin Conditions Unhealed Pressure Ulcer (1 or more/Stage 1 or >)-Admission: 0. No # Stage 1 Pressure Ulcers-Admission: 0 # Stage 2 Pressure Ulcers-Admission: 0 # Stage 3 Pressure Ulcers-Admission: 0 # Stage 4 Pressure Ulcers-Admission: 0 # Unstageable Pressure Ulcers (Non-remove Dress)-Admission: 0 # Unstageable Pressure Ulcers (Slough/Eschar)-Admission: 0 # Unstageable Pressure Ulcers (Deep Tissue Injury)-Admission: 0
[2018-09-27] MEDS: ATORVASTATIN CALCIUM 20 MG TAB PO SCH (20:10)
[2018-09-27] MEDS: LIDOCAINE 4% 15 GM CREAM TP PRN (20:11)
[2018-09-27] MEDS: DICLOFENAC SODIUM 1% 100 GM GEL TP PRN (20:13)
[2018-09-27] MEDS: ACETAMINOPHEN 325 MG TAB PO PRN (20:15)
[2018-09-27] MEDS: MELATONIN 3 MG TAB PO PRN (20:15)
[2018-09-28] MEDS: BACLOFEN 10 MG TAB PO PRN (06:24)
[2018-09-28] MEDS: LIDOCAINE 4% 15 GM CREAM TP PRN ×2 (06:24→20:22)
[2018-09-28] MEDS: SENNOSIDES 1 TAB PO SCH ×2 (08:50→20:21)
[2018-09-28] MEDS: HYDROCHLOROTHIAZIDE 25 MG TAB PO SCH (08:51)
[2018-09-28] MEDS: MULTIVITAMINS 1 EACH TAB PO SCH (08:54)
[2018-09-28] MEDS: CHOLECALCIFEROL VIT D3 2,000 UNITS TAB/CAP PO SCH (08:55)
[2018-09-28] MEDS: CIPROFLOXACIN 500 MG TAB PO SCH ×2 (09:02→20:21)
[2018-09-28 09:30] LABS: PLATELET COUNT 248 10^3/uL (150-400)
[2018-09-28] MEDS: ENOXAPARIN 40 MG/0.4 ML SYR SC SCH (09:53)
--- NOTE | 2018-09-28 10:00 | SOAPPROG ---
SOAP Progress Note Assessment/Plan: Assessment: # Debility 2/2 severe sepsis and exacerbations of weakness from her MS. * Initial functional independence measure his 49 on 09/28/2018. Bed mobility requires maximal assistance of 2. Increased tone in the right lower extremity greater than left lower extremity and in her back interferes with bed mobility and transfers. She requires maximal assistance of 2 people with the Janna study. From partial standing in the Janna study she was able to achieve full standing with contact guard assist. Was able to propel wheelchair for 35 ft with standby assist to minimal assist. Does grooming and hygiene seated with setup. Maximal assist for upper and lower body dressing. Total assist for toilet transfers and toileting. PT and OT will optimize her ADLs, transfers, mobility and stair negotiation. # Rash on right upper back. Swab for zoster to rule out shingles. * She reports that she had shingles at age 18, and that she has received the shingles vaccination. Vaccination reduces likelihood of outbreak by about 51%. Duration is approximately 5 years. # urinary Retention * Pt unclear if this is new might have had some prior * Will cath q4hrs given large volumes for now likely increased volumes 2/2 large amount of fluid resuscitation and restart of the HCTZ * Hopeful that will be able to resume good urinary excretion but might need a morning/night cath program at home? Unlikely to be able to self catheterization due to issues with seated balance and reduced dexterity with her hands. * Consider trial of tamsulosin. * If no improvement, she should have urodynamic studies with a Urology referral after discharge. # Spasticity Takes baclofen and gets botox through neurology as outpt * Taking baclofen PRN this is how she used it at home. Started discussion about some scheduled dosing with intermittent PRN. She reports that she uses 80 -100 mg each day typically. * Will schedule baclofen 40 mg in AM before arising, 20 mg before lunch, and 40 mg before dinner, starting afternoon of 09/28/2018.. Trial of tizanidine at starting with a very low-dose of 0.5 mg. - Scheduled for Botox on 10/12. She should keep the appointment. #Multiple Sclerosis * Usually receives PEG-interferon q2 weeks. Last due on 09/26. ID said OK to continue. Family is checking with her Primary neurologist likely to have answer on 09/28 # Sepsis 2/2 E.coli Bactermia/UTI - Finishing her Oral ABX cipro on 09/30 as per ID recs. - Continue to monitor for S/Sx of infection # Thrombocytopenia - Resolved as per labs on 09/27 and 325. # Transaminitis - Resolving per labs on 09/27 still slightly elevated ALT and AlkPhos # Anemia - Slightly drop on labs on 09/27. Improving on 09/28/2018. - No evidence of bleeding on exam will monitor now that starting enoxaparin. #History of LE DVT - Was on apixaban in 2015 was kept on ASA as prophylactic after that per patient - Will hold ASA and start on enoxaparin dosing. #Hyperlipidemia - Continue on Statin DISPOSITION: Attended staffing, 15 min, 09/28/2018. Discussed with case management, PT, OT, nursing, dietitian. works in [place] and is gone 12 hr a day may need as much as 2-3 weeks of inpatient rehabilitation to achieve sufficient independence to return home. Tentative discharge date set for 2018 but may be extended. # Follow Up - PCP - Neurology (in [facility]) 09/28/18 11:44 Subjective: Has itchy rash on her back. Was not aware of urinary retention prior to her hospitalization but was catheterized multiple times yesterday. Has had pain and spasticity in her left medial thigh, and sometimes she has involuntary flexion at the hip joint. This can interfere with sleep but she did better last night. Otherwise without complaints. Objective: Vital Signs Temp Pulse Resp BP Pulse Ox 37.2 C 78 16 115/67 91 L 09/28/18 06:56 09/28/18 06:56 09/28/18 06:56 09/28/18 08:51 09/28/18 06:56 Laboratory Results 09/28/18 07:00 09/27/18 06:00 09/27/18 09/28/18 09/29/18 05:59 05:59 05:59 Intake Total 790 720 150 Output Total 4494 7567 Balance -4774 -4582 150 - Time Spent With Patient Time Spent With Patient: Greater than 35 min floor time today, including more than 50% of time in coordination of care during staffing, and counseling patient. Physical Exam - Physical Exam General Appearance: WD/WN, alert, no apparent distress Respiratory: normal breath sounds, crackles (Few inspiratory crackles left lower lobe), No rhonchi, No wheezing Cardiac/Chest: regular rate, rhythm, edema (2 to 3+ bilateral ankles and feet), No diastolic murmur, No systolic murmur Abdomen: normal bowel sounds, non-tender, soft, No distended Skin: normal color, warm/dry, other (Erythematous macules on right upper back, approximately 3 mm each, approximately 5 - 10 cm craniocaudal by 15 cm.) Neuro/Psych: alert, normal mood/affect, oriented x 3, motor weakness ICD10 Worksheet Patient Problems: Problems Problem Status Onset Hypotension Acute Sepsis Acute Septic shock Acute Urinary tract infection Acute
[2018-09-28] MEDS ORDERED: BIOTENE DRY MOUTH ORAL RINSE 237 ML BTL MM PRN (11:56)
[2018-09-28] MEDS: BACLOFEN 20 MG TAB PO SCH (12:50)
[2018-09-28] MEDS: BACLOFEN 10 MG TAB PO SCH (18:24)
[2018-09-28] MEDS: ATORVASTATIN CALCIUM 20 MG TAB PO SCH (20:21)
[2018-09-28] MEDS: MELATONIN 3 MG TAB PO PRN (20:22)
[2018-09-28] MEDS: ACETAMINOPHEN 325 MG TAB PO PRN (20:22)
[2018-09-28] MEDS: DICLOFENAC SODIUM 1% 100 GM GEL TP PRN (20:23)
[2018-09-29] MEDS: BACLOFEN 10 MG TAB PO SCH ×2 (05:09→17:18)
[2018-09-29] MEDS: MULTIVITAMINS 1 EACH TAB PO SCH (09:14)
[2018-09-29] MEDS: CIPROFLOXACIN 500 MG TAB PO SCH ×2 (09:15→20:44)
[2018-09-29] MEDS: ENOXAPARIN 40 MG/0.4 ML SYR SC SCH (09:15)
[2018-09-29] MEDS: CHOLECALCIFEROL VIT D3 2,000 UNITS TAB/CAP PO SCH (09:15)
[2018-09-29] MEDS: SENNOSIDES 1 TAB PO SCH ×2 (09:19→20:45)
[2018-09-29] MEDS: HYDROCHLOROTHIAZIDE 25 MG TAB PO SCH (11:01)
[2018-09-29] MEDS: BACLOFEN 20 MG TAB PO SCH (12:42)
--- NOTE | 2018-09-29 13:28 | SOAPPROG ---
SOAP Progress Note Assessment/Plan: Assessment: # Debility 2/2 severe sepsis and exacerbations of weakness from her MS. * Initial functional independence measure his 49 on 09/28/2018. Bed mobility requires maximal assistance of 2. Increased tone in the right lower extremity greater than left lower extremity and in her back interferes with bed mobility and transfers. She requires maximal assistance of 2 people with the Janna study. From partial standing in the Janna study she was able to achieve full standing with contact guard assist. Was able to propel wheelchair for 35 ft with standby assist to minimal assist. Does grooming and hygiene seated with setup. Maximal assist for upper and lower body dressing. Total assist for toilet transfers and toileting. * Continue PT and OT will optimize her ADLs, transfers, mobility and stair negotiation. # Rash on right upper back. * PCR test negative for zoster. * Will discuss with Nursing. May use urea cream which has already been ordered. # urinary Retention * Pt unclear if this is new might have had some prior * Will cath q4hrs given large volumes for now likely increased volumes 2/2 large amount of fluid resuscitation and restart of the HCTZ * Hopeful that will be able to resume good urinary excretion but might need a morning/night cath program at home? Unlikely to be able to self catheterization due to issues with seated balance and reduced dexterity with her hands. * Consider trial of tamsulosin. * If no improvement, she should have urodynamic studies with a Urology referral after discharge. # Spasticity Takes baclofen and gets botox through neurology as outpt * Taking baclofen PRN this is how she used it at home. Started discussion about some scheduled dosing with intermittent PRN. She reports that she uses 80 -100 mg each day typically. * Will schedule baclofen 40 mg in AM before arising, 20 mg before lunch, and 40 mg before dinner, starting afternoon of 09/28/2018.. Consider trial of tizanidine once she is no longer taking ciprofloxacin, due to drug interaction - Scheduled for Botox on 10/12. She should keep the appointment. Edema. She reports history of venous insufficiency in the left leg. She reports hydrochlorothiazide is prescribed for edema rather than for blood pressure. * Admit risk, to hold hydrochlorothiazide for systolic blood pressure less than 110. * Continue compression stockings. #Multiple Sclerosis * Usually receives PEG-interferon q2 weeks. Last due on 09/26. ID said OK to continue. * Patient reports she was interested in discontinuing. She says she typically has 3 days of weakness after an injection. She reports that her primary neurologist, Dr. Rosio Bach in [place], advised her to continue. Will defer to Dr. Bach for decision when patient follows up after discharge. # Sepsis 2/2 E.coli Bactermia/UTI - Finishing her Oral ABX cipro on 09/30 as per ID recs. - Continue to monitor for S/Sx of infection # Thrombocytopenia - Resolved as per labs on 09/27 and 325. # Transaminitis - Resolving per labs on 09/27 still slightly elevated ALT and AlkPhos # Anemia - Slightly drop on labs on 09/27. Improving on 09/28/2018. - No evidence of bleeding on exam will monitor now that starting enoxaparin. #History of LE DVT - Was on apixaban in 2015 was kept on ASA as prophylactic after that per patient - Will hold ASA and start on enoxaparin dosing. #Hyperlipidemia - Continue on Statin DISPOSITION: Attended staffing, 15 min, 09/28/2018. Discussed with case management, PT, OT, nursing, dietitian. works in [place] and is gone 12 hr a day may need as much as 2-3 weeks of inpatient rehabilitation to achieve sufficient independence to return home. Tentative discharge date set for 2018 but may be extended. # Follow Up - PCP - Rosio Bach, Neurology (in [facility]) 09/29/18 13:50 Subjective: Still has itchy rash on her back. She reports the nurse sought on the right side near her shoulder as well as the left. No pain. No cough or dyspnea, no fevers or chills. Denies UTI symptoms but says she was not aware of symptoms prior to her recent infection. Objective: Vital Signs Temp Pulse Resp BP Pulse Ox 37.0 C 81 18 100/57 L 93 09/29/18 07:55 09/29/18 09:17 09/29/18 07:55 09/29/18 11:01 09/29/18 07:55 Microbiology 09/28/18 14:44 Varicella-Zoster Group DNA (PCR) - Final Dermal - Back Vzv Dna Not Detected HSV/VZV PCR Additional Information - Final Laboratory Results 09/28/18 07:00 09/27/18 06:00 09/28/18 09/29/18 09/30/18 05:59 05:59 05:59 Intake Total 720 1220 580 Output Total 3577 1300 300 Balance -2855 -80 280 Physical Exam - Physical Exam General Appearance: WD/WN, alert, no apparent distress Respiratory: normal breath sounds, No crackles, No rhonchi, No wheezing Cardiac/Chest: regular rate, rhythm, edema (2+ bilateral pretibial) Skin: normal color, warm/dry Neuro/Psych: alert, normal mood/affect, oriented x 3, motor weakness ICD10 Worksheet Patient Problems: Problems Problem Status Onset Hypotension Acute Sepsis Acute Septic shock Acute Urinary tract infection Acute
[2018-09-29] MEDS: ATORVASTATIN CALCIUM 20 MG TAB PO SCH (20:45)
[2018-09-29] MEDS: DICLOFENAC SODIUM 1% 100 GM GEL TP PRN (21:00)
[2018-09-29] MEDS: LIDOCAINE 4% 15 GM CREAM TP PRN (21:05)
[2018-09-30] MEDS: BACLOFEN 10 MG TAB PO SCH ×2 (06:19→18:22)
[2018-09-30] MEDS: MULTIVITAMINS 1 EACH TAB PO SCH (09:04)
[2018-09-30] MEDS: CHOLECALCIFEROL VIT D3 2,000 UNITS TAB/CAP PO SCH (09:04)
[2018-09-30] MEDS: ENOXAPARIN 40 MG/0.4 ML SYR SC SCH (09:04)
[2018-09-30] MEDS: HYDROCHLOROTHIAZIDE 25 MG TAB PO SCH (09:04)
[2018-09-30] MEDS: SENNOSIDES 1 TAB PO SCH ×2 (09:05→21:02)
[2018-09-30] MEDS: CIPROFLOXACIN 500 MG TAB PO SCH (09:05)
--- NOTE | 2018-09-30 09:53 | SOAPPROG ---
SOAP Progress Note Assessment/Plan: Assessment: # Debility 2/2 severe sepsis and exacerbations of weakness from her MS. * Initial functional independence measure his 49 on 09/28/2018. Bed mobility requires maximal assistance of 2. Increased tone in the right lower extremity greater than left lower extremity and in her back interferes with bed mobility and transfers. She requires maximal assistance of 2 people with the Janna study. From partial standing in the Janna study she was able to achieve full standing with contact guard assist. Was able to propel wheelchair for 35 ft with standby assist to minimal assist. Does grooming and hygiene seated with setup. Maximal assist for upper and lower body dressing. Total assist for toilet transfers and toileting. * Continue PT and OT will optimize her ADLs, transfers, mobility and stair negotiation. # Rash on right upper back. * PCR test negative for zoster. * May use urea cream . # Neurogenic bladder. Has retention with postvoid residuals in the mid 200s as well as overactivity, and no sensation of bladder fullness. * Discontinue hydrochlorothiazide. She has not used it for several days due to low blood pressures. * Unlikely to be able to self catheterization due to issues with seated balance and reduced dexterity with her hands. * Trial of tamsulosin starting 09/30/2018. * Continue rehabilitation bladder program. * If no improvement, she should have consult with a Urologist after discharge. # Spasticity Takes baclofen and gets botox through neurology as outpt * Used baclofen PRN at home, 80-100 mg each day typically. * Will schedule baclofen 40 mg in AM before arising, 20 mg before lunch, and 40 mg before dinner, starting afternoon of 09/28/2018.. Consider trial of tizanidine once she is no longer taking ciprofloxacin, due to drug interaction - Scheduled for Botox on 10/12. She should keep the appointment. Edema. She reports history of venous insufficiency in the left leg. She reports hydrochlorothiazide is prescribed for edema rather than for blood pressure. * Blood pressure is too low for hydrochlorothiazide, and it may not be the optimal treatment for edema due to venous insufficiency. * Continue compression stockings. * Daily weights. #Multiple Sclerosis * Usually receives PEG-interferon q2 weeks. Last due on 09/26. ID said OK to continue. * Patient reports she was interested in discontinuing. She says she typically has 3 days of weakness after an injection. She reports that her primary neurologist, Dr. Rosio Bach in [place], advised her to continue. Will defer to Dr. Bach for decision when patient follows up after discharge. # Sepsis 2/2 E.coli Bactermia/UTI - Finishing her Oral ABX cipro on 09/30 as per ID recs. - Continue to monitor for S/Sx of infection # Thrombocytopenia - Resolved as per labs on 09/27 and 325. # Transaminitis - Resolving per labs on 09/27 still slightly elevated ALT and AlkPhos # Anemia - Slightly drop on labs on 09/27. Improving on 09/28/2018. - No evidence of bleeding on exam will monitor now that starting enoxaparin. #History of LE DVT - Was on apixaban in 2016 was kept on ASA as prophylactic after that per patient - Will hold ASA and start on enoxaparin dosing. #Hyperlipidemia - Continue on Statin DISPOSITION: Attended staffing, 15 min, 09/28/2018. Discussed with case management, PT, OT, nursing, dietitian. works in [place] and is gone 12 hr a day may need as much as 2-3 weeks of inpatient rehabilitation to achieve sufficient independence to return home. Tentative discharge date set for 2018 but may be extended. # Follow Up - PCP - Rosio Bach, Neurology (in [facility]) 09/30/18 13:07 Subjective: Continues to have itchy rash on back. Complains of no sensation of bladder fullness and no control over urination. Otherwise without complaints. Was fatigued yesterday but slept well and is feeling better today. Objective: Vital Signs Temp Pulse Resp BP Pulse Ox 36.6 C 83 16 81/44 L 92 09/30/18 08:00 09/30/18 09:00 09/30/18 08:00 09/30/18 09:00 09/30/18 09:00 Microbiology 09/28/18 14:44 Varicella-Zoster Group DNA (PCR) - Final Dermal - Back Vzv Dna Not Detected HSV/VZV PCR Additional Information - Final Laboratory Results 09/28/18 07:00 09/27/18 06:00 09/29/18 09/30/18 10/01/18 05:59 05:59 05:59 Intake Total 1220 780 775 Output Total 1300 1300 Balance -80 -520 775 Physical Exam - Physical Exam General Appearance: WD/WN, alert, no apparent distress Respiratory: normal breath sounds, No crackles, No rhonchi, No wheezing Cardiac/Chest: regular rate, rhythm, edema (1+ bilateral lower extremity pretibial), No diastolic murmur, No systolic murmur Skin: normal color, warm/dry, other (Few scattered erythematous papules on back , primarily upper back, right greater than left.) Neuro/Psych: alert, normal mood/affect, oriented x 3 ICD10 Worksheet Patient Problems: Problems Problem Status Onset Hypotension Acute Sepsis Acute Septic shock Acute Urinary tract infection Acute
[2018-09-30] MEDS: TAMSULOSIN HCL 0.4 MG CAP PO SCH (10:52)
[2018-09-30] MEDS: BACLOFEN 20 MG TAB PO SCH (12:03)
[2018-09-30] MEDS: ATORVASTATIN CALCIUM 20 MG TAB PO SCH (21:02)
[2018-10-01] MEDS: ACETAMINOPHEN 325 MG TAB PO PRN ×2 (06:35→21:54)
[2018-10-01] MEDS: BACLOFEN 10 MG TAB PO SCH ×3 (06:36→19:13)
[2018-10-01] MEDS: ENOXAPARIN 40 MG/0.4 ML SYR SC SCH (07:51)
[2018-10-01] MEDS: CHOLECALCIFEROL VIT D3 2,000 UNITS TAB/CAP PO SCH (08:14)
[2018-10-01] MEDS: MULTIVITAMINS 1 EACH TAB PO SCH (08:14)
[2018-10-01] MEDS: SENNOSIDES 1 TAB PO SCH ×2 (08:14→21:54)
[2018-10-01] MEDS: TAMSULOSIN HCL 0.4 MG CAP PO SCH (08:14)
[2018-10-01] MEDS: BACLOFEN 20 MG TAB PO SCH (12:14)
--- NOTE | 2018-10-01 12:28 | SOAPPROG ---
SOAP Progress Note Assessment/Plan: Assessment: # Debility 2/2 severe sepsis and exacerbations of weakness from her MS, hospitalized 09/20/2018. * Initial functional independence measure his 49 on 09/28/2018. Bed mobility requires maximal assistance of 2. Increased tone in the right lower extremity greater than left lower extremity and in her back interferes with bed mobility and transfers. She requires maximal assistance of 2 people with the Janna study. From partial standing in the Janna study she was able to achieve full standing with contact guard assist. Was able to propel wheelchair for 35 ft with standby assist to minimal assist. Does grooming and hygiene seated with setup. Maximal assist for upper and lower body dressing. Total assist for toilet transfers and toileting. * Continue PT and OT will optimize her ADLs, transfers, mobility and stair negotiation. # Rash on right upper back. * PCR test negative for zoster. * Nursing using house skin lotion. # Neurogenic bladder. Has retention with postvoid residuals in the mid 200s as well as overactivity, and no sensation of bladder fullness. * Discontinue hydrochlorothiazide. She has not used it for several days due to low blood pressures. * Unlikely to be able to self catheterization due to issues with seated balance and reduced dexterity with her hands. * Trial of tamsulosin starting 09/30/2018. * Continue rehabilitation bladder program. * If no improvement, she should have consult with a Urologist after discharge. # Spasticity Takes baclofen and gets botox through neurology as outpt * Used baclofen PRN at home, 80-100 mg each day typically. * Will schedule baclofen 40 mg in AM before arising, 20 mg before lunch, and 40 mg before dinner, starting afternoon of 09/28/2018. * Trial of tizanidine 1 mg at HS. Will increase if no improvement. Monitor for over-sedation - Scheduled for Botox on 10/12. She should keep the appointment. Edema. She reports history of venous insufficiency in the left leg. She reports hydrochlorothiazide is prescribed for edema rather than for blood pressure. * Blood pressure is too low for hydrochlorothiazide, and it may not be the optimal treatment for edema due to venous insufficiency. * Continue compression stockings. * Daily weights. #Multiple Sclerosis * Usually receives PEG-interferon q2 weeks. Last due on 09/26. ID said OK to continue. * Patient reports she was interested in discontinuing. She says she typically has 3 days of weakness after an injection. She reports that her primary neurologist, Dr. Rosio Bach in [place], advised her to continue. Will defer to Dr. Bach for decision when patient follows up after discharge. # Sepsis 2/2 E.coli Bactermia/UTI - Finishing her Oral ABX cipro on 09/30 as per ID recs. - Continue to monitor for S/Sx of infection # Thrombocytopenia - Resolved as per labs on 09/27 and 325. # Transaminitis - Resolving per labs on 09/27 still slightly elevated ALT and AlkPhos # Anemia - Slightly drop on labs on 09/27. Improving on 09/28/2018. - No evidence of bleeding on exam will monitor now that starting enoxaparin. #History of LE DVT - Was on apixaban in 2016 was kept on ASA as prophylactic after that per patient - Will hold ASA and start on enoxaparin dosing. - Plan to resume ASA and d/c enoxaparin upon discharge. 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 #Hyperlipidemia - Continue on Statin DISPOSITION: Attended staffing, 15 min, 09/28/2018. Discussed with case management, PT, OT, nursing, dietitian. works in [place] and is gone 12 hr a day may need as much as 2-3 weeks of inpatient rehabilitation to achieve sufficient independence to return home. Tentative discharge date set for 2018 but may be extended. # Follow Up - PCP - Rosio Bach, Neurology (in [facility]) 10/01/18 11:58 Subjective: Issues with spasticity overnight interfered with sleep. Therapists note increased tone in the morning. She had right calf pain which she describes as her usual skin sensitivity. This can happen when Kev hose are removed. Otherwise without complaints. Objective: Vital Signs Temp Pulse Resp BP Pulse Ox 37.1 C 87 16 108/67 91 L 10/01/18 06:42 10/01/18 08:10 10/01/18 06:42 10/01/18 08:10 10/01/18 08:10 Laboratory Results 09/28/18 07:00 09/27/18 06:00 09/30/18 10/01/18 10/02/18 05:59 05:59 05:59 Intake Total 780 1965 400 Output Total 1300 1050 200 Balance -520 915 200 Physical Exam - Physical Exam General Appearance: WD/WN, alert, no apparent distress Respiratory: No respiratory distress, No accessory muscle use Cardiac/Chest: edema (trace - 1+ B LE pretibial) Skin: normal color, warm/dry Extremities: No calf tenderness Neuro/Psych: alert, normal mood/affect, oriented x 3, motor weakness ICD10 Worksheet Patient Problems: Problems Problem Status Onset Hypotension Acute Sepsis Acute Septic shock Acute Urinary tract infection Acute
[2018-10-01] MEDS: MELATONIN 3 MG TAB PO PRN (21:54)
[2018-10-01] MEDS: ATORVASTATIN CALCIUM 20 MG TAB PO SCH (21:54)
[2018-10-01] MEDS: tiZANidine HCL 2 MG TAB PO SCH (21:54)
[2018-10-02] MEDS: BACLOFEN 10 MG TAB PO SCH ×2 (06:11→17:02)
[2018-10-02] MEDS: MULTIVITAMINS 1 EACH TAB PO SCH (09:17)
[2018-10-02] MEDS: ENOXAPARIN 40 MG/0.4 ML SYR SC SCH (09:17)
[2018-10-02] MEDS: CHOLECALCIFEROL VIT D3 2,000 UNITS TAB/CAP PO SCH (09:17)
[2018-10-02] MEDS: SENNOSIDES 1 TAB PO SCH ×2 (09:17→20:32)
[2018-10-02] MEDS: TAMSULOSIN HCL 0.4 MG CAP PO SCH (09:17)
--- NOTE | 2018-10-02 12:24 | SOAPPROG ---
SOAP Progress Note Assessment/Plan: Assessment: # Debility 2/2 severe sepsis and exacerbations of weakness from her MS, hospitalized 09/20/2018. * Initial functional independence measure his 49 on 09/28/2018, improved to 59 as of 10/02/2018. Moderate assist with bed mobility. Has impulsivity and needs close cuing to slow down. Transfers with Janna steady and 2 person assist. Has done sit to director of clinical trials parallel bars with assist of 2. Ambulated 5 ft x 2 in parallel bars with assist of 2 total assist for lower body dressing and toileting. Moderate assist for bathing and upper body dressing. Has urinary incontinence when she has extensor spasms.. * Continue PT and OT will optimize her ADLs, transfers, mobility and stair negotiation. * Consider trial of endurance training with gradual increase of duration, on [employer] machine. She expressed enthusiasm about the idea. Discussed with physical therapy. # Neurogenic bladder. Has retention with postvoid residuals in the mid 200s as well as overactivity, and no sensation of bladder fullness. * Discontinue hydrochlorothiazide. She has not used it for several days due to low blood pressures. * Unlikely to be able to self catheterization due to issues with seated balance and reduced dexterity with her hands. * Initiated tamsulosin 09/30/2018. Has improved residuals with range of 65 to 170; previously had been mid 200s. * Continue rehabilitation bladder program. # Spasticity Takes baclofen and gets botox through neurology as outpt * Used baclofen PRN at home, 80-100 mg each day typically. * Scheduled baclofen 40 mg in AM before arising, 20 mg before lunch, and 40 mg before dinner, starting afternoon of 09/28/2018. * Trial of tizanidine 1 mg at HS starting 10/01/2018. It has helped her sleep but unclear if it has helped spasticity. Continue to monitor. Consider titration after several days. - Scheduled for Botox on 10/12. She should keep the appointment. Edema. She reports history of venous insufficiency in the left leg. She reports hydrochlorothiazide is prescribed for edema rather than for blood pressure. * Blood pressure is too low for hydrochlorothiazide, and it may not be the optimal treatment for edema due to venous insufficiency. * Continue compression stockings. * Daily weights. #Multiple Sclerosis * Usually receives PEG-interferon q2 weeks. Last due on 09/26. ID said OK to continue. * Patient reports she was interested in discontinuing. She says she typically has 3 days of weakness after an injection. She reports that her primary neurologist, Dr. Rosio Bach in [place], advised her to continue. Will defer to Dr. Bach for decision when patient follows up after discharge. # Rash on right upper back. * PCR test negative for zoster. * Nursing using house skin lotion. # Sepsis 2/2 E.coli Bactermia/UTI - Finishing her Oral ABX cipro on 09/30 as per ID recs. - Continue to monitor for S/Sx of infection # Thrombocytopenia - Resolved as per labs on 09/27 and 325. # Transaminitis - Resolving per labs on 09/27 still slightly elevated ALT and AlkPhos # Anemia - Slightly drop on labs on 09/27. Improving on 09/28/2018. - No evidence of bleeding on exam will monitor now that starting enoxaparin. #History of LE DVT - Was on apixaban in 2016 was kept on ASA as prophylactic after that per patient - Will hold ASA and start on enoxaparin dosing. - Plan to resume ASA and d/c enoxaparin upon discharge. Per literature review , there is no indication for neonatal icu coordinator anticoagulation in multiple sclerosis. #Hyperlipidemia - Continue on Statin DISPOSITION: Attended staffing, 15 min, 10/02/2018. Discussed with case management, PT, OT, nursing, dietitian. Attended family meeting, 30 min. works in [place] and is gone 12 hr a day. May need as much as 2-3 weeks of inpatient rehabilitation to achieve sufficient independence to return home. Good progress in her 1st week. Weekly reassessment regarding length of stay. Goal sufficient independence to return home. She may need well driller helper. # Follow Up - PCP - Rosio Bach, Neurology (in [facility]) 10/02/18 12:24 Subjective: Slept better last night with tizanidine. Unclear if she has had a reduction in spasticity. She typically awakens to be turned several times through the night. Overnight she also had to have a bowel movement. She greatly appreciates the use of the external female catheter. Objective: Vital Signs Temp Pulse Resp BP Pulse Ox 36.4 C 86 16 109/65 92 10/02/18 08:00 10/02/18 08:00 10/02/18 08:00 10/02/18 08:00 10/02/18 08:00 Laboratory Results 09/28/18 07:00 09/27/18 06:00 10/01/18 10/02/18 10/03/18 05:59 05:59 05:59 Intake Total 1965 1068 Output Total 1050 1100 0 Balance 915 -32 0 - Time Spent With Patient Time Spent With Patient: Greater than 35 min floor time today, including more than 50% of time in coordination of care during staffing meeting, and counseling patient and during family meeting. Physical Exam - Physical Exam General Appearance: WD/WN, alert, no apparent distress Respiratory: normal breath sounds, No crackles, No rhonchi, No wheezing Cardiac/Chest: regular rate, rhythm, edema (Trace to 1+ bilateral pretibial), No diastolic murmur, No systolic murmur Skin: normal color, warm/dry Neuro/Psych: alert, normal mood/affect, oriented x 3, motor weakness (Reduced fine motor coordination right hand.) ICD10 Worksheet Patient Problems: Problems Problem Status Onset Hypotension Acute Sepsis Acute Septic shock Acute Urinary tract infection Acute
[2018-10-02] MEDS: BACLOFEN 20 MG TAB PO SCH (12:43)
[2018-10-02] MEDS: tiZANidine HCL 2 MG TAB PO SCH (20:32)
[2018-10-02] MEDS: ATORVASTATIN CALCIUM 20 MG TAB PO SCH (20:32)
[2018-10-02] MEDS: ACETAMINOPHEN 325 MG TAB PO PRN (22:01)
[2018-10-02] MEDS: MELATONIN 3 MG TAB PO PRN (22:02)
[2018-10-03] MEDS: CALCIUM CARBONATE 500 MG CHEWABLE TAB PO PRN (00:45)
[2018-10-03] MEDS: ACETAMINOPHEN 325 MG TAB PO PRN ×2 (04:16→21:13)
[2018-10-03] MEDS: LIDOCAINE 4% 15 GM CREAM TP PRN ×2 (04:20→23:00)
[2018-10-03] MEDS: BACLOFEN 10 MG TAB PO SCH ×2 (06:00→17:51)
[2018-10-03] MEDS: CHOLECALCIFEROL VIT D3 2,000 UNITS TAB/CAP PO SCH (08:50)
[2018-10-03] MEDS: TAMSULOSIN HCL 0.4 MG CAP PO SCH (08:50)
[2018-10-03] MEDS: SENNOSIDES 1 TAB PO SCH ×2 (08:50→21:14)
[2018-10-03] MEDS: ENOXAPARIN 40 MG/0.4 ML SYR SC SCH (08:50)
[2018-10-03] MEDS: MULTIVITAMINS 1 EACH TAB PO SCH (08:50)
--- NOTE | 2018-10-03 10:39 | SOAPPROG ---
SOAP Progress Note Assessment/Plan: Assessment: # Debility 2/2 severe sepsis and exacerbations of weakness from her MS, hospitalized 09/20/2018. * Initial functional independence measure his 49 on 09/28/2018, improved to 59 as of 10/02/2018. Moderate assist with bed mobility. Has impulsivity and needs close cuing to slow down. Transfers with Janna steady and 2 person assist. Has done sit to digital marketing strategist parallel bars with assist of 2. Ambulated 5 ft x 2 in parallel bars with assist of 2 total assist for lower body dressing and toileting. Moderate assist for bathing and upper body dressing. Has urinary incontinence when she has extensor spasms.. * Continue PT and OT will optimize her ADLs, transfers, mobility and stair negotiation. * Consider trial of endurance training with gradual increase of duration, on [employer] machine. She expressed enthusiasm about the idea. Discussed with physical therapy. # Neurogenic bladder. Has retention with postvoid residuals in the mid 200s as well as overactivity, and no sensation of bladder fullness. * Discontinue hydrochlorothiazide. She has not used it for several days due to low blood pressures. * Unlikely to be able to self catheterization due to issues with seated balance and reduced dexterity with her hands. * Initiated tamsulosin 09/30/2018. Has improved residuals with range of 65 to 170; previously had been mid 200s. * Continue rehabilitation bladder program. # Spasticity Takes baclofen and gets botox through neurology as outpt * Used baclofen PRN at home, 80-100 mg each day typically. * Scheduled baclofen 40 mg in AM before arising, 20 mg before lunch, and 40 mg before dinner, starting afternoon of 09/28/2018. * Trial of tizanidine 1 mg at HS starting 10/01/2018. It has helped her sleep but unclear if it has helped spasticity. Continue to monitor. Consider titration after several days. - Scheduled for Botox on 10/12. She should keep the appointment. # Dysuria. * Check urinalysis, 10/03/2018. Will not consider treating unless she had more distinct symptoms; however if UA is positive will order culture. # Edema. She reports history of venous insufficiency in the left leg. She reports hydrochlorothiazide is prescribed for edema rather than for blood pressure. * Blood pressure is too low for hydrochlorothiazide, and it may not be the optimal treatment for edema due to venous insufficiency. * Continue compression stockings. * Daily weights. #Multiple Sclerosis * Usually receives PEG-interferon q2 weeks. Last due on 09/26. ID said OK to continue. * Patient reports she was interested in discontinuing. She says she typically has 3 days of weakness after an injection. She reports that her primary neurologist, Dr. Rosio Bach in [place], advised her to continue. Will defer to Dr. Bach for decision when patient follows up after discharge. # Rash on right upper back. * PCR test negative for zoster. * Nursing using house skin lotion. # Sepsis 2/2 E.coli Bactermia/UTI - Finishing her Oral ABX cipro on 09/30 as per ID recs. - Continue to monitor for S/Sx of infection # Thrombocytopenia - Resolved as per labs on 09/27 and 325. # Transaminitis - Resolving per labs on 09/27 still slightly elevated ALT and AlkPhos # Anemia - Slightly drop on labs on 09/27. Improving on 09/28/2018. - No evidence of bleeding on exam will monitor now that starting enoxaparin. #History of LE DVT - Was on apixaban in 2016 was kept on ASA as prophylactic after that per patient - Will hold ASA and start on enoxaparin dosing. - Plan to resume ASA and d/c enoxaparin upon discharge. Per literature review , there is no indication for termite technician anticoagulation in multiple sclerosis. #Hyperlipidemia - Continue on Statin DISPOSITION: Attended staffing, 15 min, 10/02/2018. Discussed with case management, PT, OT, nursing, dietitian. Attended family meeting, 30 min. works in [place] and is gone 12 hr a day. May need as much as 2-3 weeks of inpatient rehabilitation to achieve sufficient independence to return home. Good progress in her 1st week. Weekly reassessment regarding length of stay. Goal sufficient independence to return home. She may need sewer pipe layer helper. # Follow Up - PCP - Rosoi Bach, Neurology (in [facility]) 10/03/18 10:37 Subjective: Had sensation of burning after urinating this morning. No fevers or chills, no flank pain. Slept well even though she was turned q.2 hours by nursing. Objective: Vital Signs Temp Pulse Resp BP Pulse Ox 36.6 C 63 15 107/63 90 L 10/03/18 06:06 10/03/18 06:06 10/03/18 06:06 10/03/18 06:06 10/03/18 06:06 Laboratory Results 09/28/18 07:00 09/27/18 06:00 10/02/18 10/03/18 10/04/18 05:59 05:59 05:59 Intake Total 1068 600 250 Output Total 1100 950 Balance -32 -350 250 Physical Exam - Physical Exam General Appearance: WD/WN, alert, no apparent distress Respiratory: No respiratory distress, No accessory muscle use Skin: normal color, warm/dry Neuro/Psych: alert, normal mood/affect, oriented x 3, motor weakness ICD10 Worksheet Patient Problems: Problems Problem Status Onset Hypotension Acute Sepsis Acute Septic shock Acute Urinary tract infection Acute
[2018-10-03] MEDS: BACLOFEN 20 MG TAB PO SCH (12:36)
[2018-10-03] MEDS: MELATONIN 3 MG TAB PO PRN (21:13)
[2018-10-03] MEDS: ATORVASTATIN CALCIUM 20 MG TAB PO SCH (21:14)
[2018-10-03] MEDS: DICLOFENAC SODIUM 1% 100 GM GEL TP PRN (23:00)
[2018-10-04] MEDS: tiZANidine HCL 2 MG TAB PO SCH ×2 (00:40→20:18)
[2018-10-04] MEDS: BACLOFEN 10 MG TAB PO SCH ×2 (06:25→17:23)
[2018-10-04] MEDS: ENOXAPARIN 40 MG/0.4 ML SYR SC SCH (08:27)
[2018-10-04] MEDS: CHOLECALCIFEROL VIT D3 2,000 UNITS TAB/CAP PO SCH (08:27)
[2018-10-04] MEDS: SENNOSIDES 1 TAB PO SCH ×2 (08:27→20:30)
[2018-10-04] MEDS: MULTIVITAMINS 1 EACH TAB PO SCH (08:27)
[2018-10-04] MEDS: TAMSULOSIN HCL 0.4 MG CAP PO SCH (08:27)
--- NOTE | 2018-10-04 10:57 | SOAPPROG ---
SOAP Progress Note Assessment/Plan: Assessment: # Debility 2/2 severe sepsis and exacerbations of weakness from her MS, hospitalized 09/20/2018. * Initial functional independence measure his 49 on 09/28/2018, improved to 59 as of 10/02/2018. Moderate assist with bed mobility. Has impulsivity and needs close cuing to slow down. Transfers with Janna steady and 2 person assist. Has done sit to clinical staff anesthesiologist parallel bars with assist of 2. Ambulated 5 ft x 2 in parallel bars with assist of 2 total assist for lower body dressing and toileting. Moderate assist for bathing and upper body dressing. Has urinary incontinence when she has extensor spasms.. * Continue PT and OT will optimize her ADLs, transfers, mobility and stair negotiation. * Consider trial of endurance training with gradual increase of duration, on [employer] machine. She expressed enthusiasm about the idea. Discussed with physical therapy. # Neurogenic bladder. Has retention with postvoid residuals in the mid 200s as well as overactivity, and no sensation of bladder fullness. * Discontinue hydrochlorothiazide. She has not used it for several days due to low blood pressures. * Unlikely to be able to self catheterization due to issues with seated balance and reduced dexterity with her hands. * Initiated tamsulosin 09/30/2018. Has improved residuals with range of 65 to 170; previously had been mid 200s. * Continue rehabilitation bladder program. # Spasticity Takes baclofen and gets botox through neurology as outpt * Used baclofen PRN at home, 80-100 mg each day typically. * Scheduled baclofen 40 mg in AM before arising, 20 mg before lunch, and 40 mg before dinner, starting afternoon of 09/28/2018. * Trial of tizanidine 1 mg at HS starting 10/01/2018. It has helped her sleep but unclear if it has helped spasticity. Continue to monitor. Consider titration after several days. - Scheduled for Botox on 10/12. She should keep the appointment. 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 Symptoms relieved with Tums. Vitals were stable. * Had indeterminate troponins during hospitalization. 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 Echocardiogram was normal but for mild mitral and tricuspid regurgitation. * Monitor were for recurrent symptoms. Will have low threshold for EKG and troponins versus transfer to emergency department. # Dysuria, 10/03/2018. * Positive urinalysis, 10/03/2018, with white blood cells and leukocyte esterase. Await culture. She denies symptoms currently, as of 10/04/2018. # Edema. She reports history of venous insufficiency in the left leg. She reports hydrochlorothiazide is prescribed for edema rather than for blood pressure. * Blood pressure is too low for hydrochlorothiazide, and it may not be the optimal treatment for edema due to venous insufficiency. * Continue compression stockings. * Weight and edema have been stable. Change weights from daily to every Friday. #Multiple Sclerosis * Usually receives PEG-interferon q2 weeks. Last due on 09/26. ID said OK to continue. * Patient reports she was interested in discontinuing. She says she typically has 3 days of weakness after an injection. She reports that her primary neurologist, Dr. Rosio Bach in [place], advised her to continue. Will defer to Dr. Bach for decision when patient follows up after discharge. # Rash on right upper back. * PCR test negative for zoster. * Nursing using house skin lotion. # Sepsis 2/2 E.coli Bactermia/UTI - Finishing her Oral ABX cipro on 09/30 as per ID recs. - Continue to monitor for S/Sx of infection # Thrombocytopenia - Resolved as per labs on 09/27 and 325. # Transaminitis - Resolving per labs on 09/27 still slightly elevated ALT and AlkPhos # Anemia - Slightly drop on labs on 09/27. Improving on 09/28/2018. - No evidence of bleeding on exam will monitor now that starting enoxaparin. #History of LE DVT - Was on apixaban in 2016 was kept on ASA as prophylactic after that per patient - Will hold ASA and start on enoxaparin dosing. - Plan to resume ASA and d/c enoxaparin upon discharge. Per literature review , there is no indication for jail anticoagulation in multiple sclerosis. #Hyperlipidemia - Continue on Statin DISPOSITION: Attended staffing, 15 min, 10/02/2018. Discussed with case management, PT, OT, nursing, dietitian. Attended family meeting, 30 min. works in [place] and is gone 12 hr a day. May need as much as 2-3 weeks of inpatient rehabilitation to achieve sufficient independence to return home. Good progress in her 1st week. Weekly reassessment regarding length of stay. Goal sufficient independence to return home. She may need gambreler helper. # Follow Up - PCP - Rosio Bach, Neurology (in [facility]) 10/04/18 10:49 Subjective: Had fatigue yesterday feeling better today. She reports she woke up in the night with an episode of chest left shoulder and neck pain. She reports nurses found her vitals to be normal. She took Tums and symptoms resolved after about 15 min. She has a history of periodic indigestion and she thinks the symptoms were due to eating a barbecue sandwich that her brought in. Otherwise without complaints. Objective: Vital Signs Temp Pulse Resp BP Pulse Ox 36.8 C 70 16 116/63 91 L 10/04/18 06:17 10/04/18 06:17 10/04/18 06:17 10/04/18 06:17 10/04/18 06:17 Laboratory Results 09/28/18 07:00 09/27/18 06:00 10/03/18 10/04/18 10/05/18 05:59 05:59 05:59 Intake Total 600 2190 Output Total 950 2000 Balance -350 190 Physical Exam - Physical Exam General Appearance: WD/WN, alert, no apparent distress Respiratory: normal breath sounds, No crackles, No rhonchi, No wheezing Cardiac/Chest: regular rate, rhythm, No JVD, No diastolic murmur, No systolic murmur Skin: normal color, warm/dry Neuro/Psych: alert, normal mood/affect, oriented x 3, motor weakness ICD10 Worksheet Patient Problems: Problems Problem Status Onset Hypotension Acute Sepsis Acute Septic shock Acute Urinary tract infection Acute
[2018-10-04] MEDS: BACLOFEN 20 MG TAB PO SCH (12:02)
[2018-10-04] MEDS: MELATONIN 3 MG TAB PO PRN (20:18)
[2018-10-04] MEDS: ACETAMINOPHEN 325 MG TAB PO PRN (20:19)
[2018-10-04] MEDS: ATORVASTATIN CALCIUM 20 MG TAB PO SCH (20:19)
[2018-10-04] MEDS: LIDOCAINE 4% 15 GM CREAM TP PRN (20:22)
[2018-10-04] MEDS: DICLOFENAC SODIUM 1% 100 GM GEL TP PRN (20:27)
[2018-10-05] MEDS: LIDOCAINE 4% 15 GM CREAM TP PRN ×2 (01:50→20:50)
[2018-10-05] MEDS: DICLOFENAC SODIUM 1% 100 GM GEL TP PRN ×2 (02:57→21:20)
[2018-10-05] MEDS: BACLOFEN 10 MG TAB PO SCH ×2 (05:37→18:09)
[2018-10-05] MEDS: ENOXAPARIN 40 MG/0.4 ML SYR SC SCH (08:15)
[2018-10-05] MEDS: CHOLECALCIFEROL VIT D3 2,000 UNITS TAB/CAP PO SCH (09:03)
[2018-10-05] MEDS: MULTIVITAMINS 1 EACH TAB PO SCH (09:03)
[2018-10-05] MEDS: SENNOSIDES 1 TAB PO SCH ×2 (09:03→20:40)
[2018-10-05] MEDS: TAMSULOSIN HCL 0.4 MG CAP PO SCH (09:03)
--- NOTE | 2018-10-05 11:19 | SOAPPROG ---
SOAP Progress Note Assessment/Plan: Assessment: # Debility 2/2 severe sepsis and exacerbations of weakness from her MS, hospitalized 09/20/2018. * Initial functional independence measure his 49 on 09/28/2018, improved to 59 as of 10/02/2018. Moderate assist with bed mobility. Has impulsivity and needs close cuing to slow down. Transfers with Janna steady and 2 person assist. Has done sit to basket machine operator parallel bars with assist of 2. Ambulated 5 ft x 2 in parallel bars with assist of 2 total assist for lower body dressing and toileting. Moderate assist for bathing and upper body dressing. Has urinary incontinence when she has extensor spasms.. * Continue PT and OT will optimize her ADLs, transfers, mobility and stair negotiation. * Consider trial of endurance training with gradual increase of duration, on [employer] machine. She expressed enthusiasm about the idea. Discussed with physical therapy. # Neurogenic bladder. Has retention with postvoid residuals in the mid 200s as well as overactivity, and no sensation of bladder fullness. * Discontinue hydrochlorothiazide. She has not used it for several days due to low blood pressures. * Unlikely to be able to self catheterization due to issues with seated balance and reduced dexterity with her hands. * Initiated tamsulosin 09/30/2018. Has improved residuals with range of 65 to 170; previously had been mid 200s. * Continue rehabilitation bladder program. # Spasticity Takes baclofen and gets botox through neurology as outpt * Used baclofen PRN at home, 80-100 mg each day typically. * Scheduled baclofen 40 mg in AM before arising, 20 mg before lunch, and 40 mg before dinner, starting afternoon of 09/28/2018. * Trial of tizanidine 1 mg at HS starting 10/01/2018. It has helped her sleep but unclear if it has helped spasticity. Continue to monitor. Increased to 2 mg starting 10/05/2018.. - Scheduled for Botox on 10/12. She should keep the appointment. 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 Symptoms relieved with Tums. Vitals were stable. * Had indeterminate troponins during hospitalization. 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 Echocardiogram was normal but for mild mitral and tricuspid regurgitation. * Monitor were for recurrent symptoms. Will have low threshold for EKG and troponins versus transfer to emergency department. # Edema. She reports history of venous insufficiency in the left leg. She reports hydrochlorothiazide is prescribed for edema rather than for blood pressure. * Blood pressure is too low for hydrochlorothiazide, and it may not be the optimal treatment for edema due to venous insufficiency. * Continue compression stockings. * Weight and edema have been stable. Change weights from daily to every Friday. #Multiple Sclerosis * Usually receives PEG-interferon q2 weeks. Last due on 09/26. ID said OK to continue. * Patient reports she was interested in discontinuing. She says she typically has 3 days of weakness after an injection. She reports that her primary neurologist, Dr. Rosio Bach in [place], advised her to continue. Will defer to Dr. Bach for decision when patient follows up after discharge. # Dysuria, 10/03/2018. * Positive urinalysis, 10/03/2018, with white blood cells and leukocyte esterase. She denies symptoms currently, as of 10/04/2018. * Culture result 10/05/2018 with 8000 CFU yeast. No treatment indicated # Rash on right upper back. * PCR test negative for zoster. * Nursing using house skin lotion. # Sepsis 2/ E.coli Bactermia/UTI - Finishing her Oral ABX cipro on 09/30 as per ID recs. - Continue to monitor for S/Sx of infection # Thrombocytopenia - Resolved as per labs on 09/27 and 325. # Transaminitis - Resolving per labs on 09/27 still slightly elevated ALT and AlkPhos # Anemia - Slightly drop on labs on 09/27. Improving on 09/28/2018. - No evidence of bleeding on exam will monitor now that starting enoxaparin. #History of LE DVT - Was on apixaban in 2016 was kept on ASA as prophylactic after that per patient - Will hold ASA and start on enoxaparin dosing. - Plan to resume ASA and d/c enoxaparin upon discharge. Per literature review , there is no indication for custodial anticoagulation in multiple sclerosis. #Hyperlipidemia - Continue on Statin DISPOSITION: Attended staffing, 15 min, 10/02/2018. Discussed with case management, PT, OT, nursing, dietitian. Attended family meeting, 30 min. works in [place] and is gone 12 hr a day. May need as much as 2-3 weeks of inpatient rehabilitation to achieve sufficient independence to return home. Good progress in her 1st week. Weekly reassessment regarding length of stay. Goal sufficient independence to return home. She may need dough mixer helper. # Follow Up - PCP - Rosio Bach, Neurology (in [facility]) 10/05/18 11:17 Subjective: Neuropathic symptoms in the right hand interfered with sleep. She slept for about 2 hr and then could not get back to sleep. Lidocaine cream and diclofenac gel did not help. She also reports continued muscle spasm of the left leg during the night. Typically when the left leg starts to have spasms she rolls from sleeping on her left side to sleeping on her right side, but the right hand neuropathic symptoms can interfere with sleep when she tries to be on the right side Otherwise without complaints. No urinary symptoms, no fevers or chills. Objective: Vital Signs Temp Pulse Resp BP Pulse Ox 36.9 C 62 16 114/65 93 10/05/18 06:12 10/05/18 06:12 10/05/18 06:12 10/05/18 06:12 10/05/18 06:12 Laboratory Results 09/28/18 07:00 09/27/18 06:00 10/04/18 10/05/18 10/06/18 05:59 05:59 05:59 Intake Total 2190 660 300 Output Total 1999 8234 924 Balance 524 -768 -13 Physical Exam - Physical Exam General Appearance: WD/WN, alert, no apparent distress Respiratory: No respiratory distress, No accessory muscle use Skin: normal color, warm/dry Extremities: other (No increased tone in the right elbow or wrist. Right radial pulse is 2 +. Sensation is normal on the right hand.) Neuro/Psych: alert, normal mood/affect, oriented x 3, motor weakness ICD10 Worksheet Patient Problems: Problems Problem Status Onset Hypotension Acute Sepsis Acute Septic shock Acute Urinary tract infection Acute
[2018-10-05] MEDS: BACLOFEN 20 MG TAB PO SCH (11:44)
[2018-10-05] MEDS: ACETAMINOPHEN 325 MG TAB PO PRN (20:35)
[2018-10-05] MEDS: MELATONIN 3 MG TAB PO PRN (20:39)
[2018-10-05] MEDS: ATORVASTATIN CALCIUM 20 MG TAB PO SCH (20:39)
[2018-10-05] MEDS: tiZANidine HCL 2 MG TAB PO SCH (20:40)
[2018-10-05] MEDS: CALCIUM CARBONATE 500 MG CHEWABLE TAB PO PRN (22:07)
[2018-10-06] MEDS: BACLOFEN 10 MG TAB PO SCH ×2 (06:09→18:02)
[2018-10-06] MEDS: ENOXAPARIN 40 MG/0.4 ML SYR SC SCH (07:14)
[2018-10-06] MEDS: CHOLECALCIFEROL VIT D3 2,000 UNITS TAB/CAP PO SCH (08:29)
[2018-10-06] MEDS: SENNOSIDES 1 TAB PO SCH ×2 (08:29→22:03)
[2018-10-06] MEDS: MULTIVITAMINS 1 EACH TAB PO SCH (08:29)
[2018-10-06] MEDS: TAMSULOSIN HCL 0.4 MG CAP PO SCH (08:29)
[2018-10-06] MEDS: BACLOFEN 20 MG TAB PO SCH (13:45)
--- NOTE | 2018-10-06 14:03 | SOAPPROG ---
SOAP Progress Note Assessment/Plan: Assessment: # Debility 2/2 severe sepsis and exacerbations of weakness from her MS, hospitalized 09/20/2018. * Initial functional independence measure his 49 on 09/28/2018, improved to 59 as of 10/02/2018. Moderate assist with bed mobility. Has impulsivity and needs close cuing to slow down. Transfers with Janna steady and 2 person assist. Has done sit to electronic installer parallel bars with assist of 2. Ambulated 5 ft x 2 in parallel bars with assist of 2 total assist for lower body dressing and toileting. Moderate assist for bathing and upper body dressing. Has urinary incontinence when she has extensor spasms.. * Continue PT and OT will optimize her ADLs, transfers, mobility and stair negotiation. * Consider trial of endurance training with gradual increase of duration, on Spottly machine. She expressed enthusiasm about the idea. Discussed with physical therapy. # Neurogenic bladder. Has retention with postvoid residuals in the mid 200s as well as overactivity, and no sensation of bladder fullness. * Discontinue hydrochlorothiazide. She has not used it for several days due to low blood pressures. * Unlikely to be able to self catheterization due to issues with seated balance and reduced dexterity with her hands. * Initiated tamsulosin 09/30/2018. Has improved residuals with range of 65 to 170; previously had been mid 200s. * Continue rehabilitation bladder program. # Spasticity Takes baclofen and gets botox through neurology as outpt * Used baclofen PRN at home, 80-100 mg each day typically. * Scheduled baclofen 40 mg in AM before arising, 20 mg before lunch, and 40 mg before dinner, starting afternoon of 09/28/2018. * Trial of tizanidine 1 mg at HS starting 10/01/2018. It has helped her sleep but unclear if it has helped spasticity. Continue to monitor. - Scheduled for Botox on 10/12. She will likely need to reschedule. 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 Symptoms relieved with Tums. Vitals were stable. * Had indeterminate troponins during hospitalization. 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 Echocardiogram was normal but for mild mitral and tricuspid regurgitation. * Monitor were for recurrent symptoms. Will have low threshold for EKG and troponins versus transfer to emergency department. # Edema. She reports history of venous insufficiency in the left leg. She reports hydrochlorothiazide is prescribed for edema rather than for blood pressure. * Blood pressure is too low for hydrochlorothiazide, and it may not be the optimal treatment for edema due to venous insufficiency. * Continue compression stockings. * Weight and edema have been stable. Change weights from daily to every Friday. #Multiple Sclerosis * Usually receives PEG-interferon q2 weeks. Last due on 09/26. ID said OK to continue. * Patient reports she was interested in discontinuing. She says she typically has 3 days of weakness after an injection. She reports that her primary neurologist, Dr. Rosio Bach in [place], advised her to continue. Will defer to Dr. Bach for decision when patient follows up after discharge. # Dysuria, 10/03/2018. * Positive urinalysis, 10/03/2018, with white blood cells and leukocyte esterase. She denies symptoms currently, as of 10/04/2018. * Culture result 10/05/2018 with 8000 CFU yeast. No treatment indicated # Rash on right upper back. * PCR test negative for zoster. * Nursing using house skin lotion. # Sepsis 2/2 E.coli Bactermia/UTI - Finishing her Oral ABX cipro on 09/30 as per ID recs. - Continue to monitor for S/Sx of infection # Thrombocytopenia - Resolved as per labs on 09/27 and 325. # Transaminitis - Resolving per labs on 09/27 still slightly elevated ALT and AlkPhos # Anemia - Slightly drop on labs on 09/27. Improving on 09/28/2018. - No evidence of bleeding on exam will monitor now that starting enoxaparin. #History of LE DVT - Was on apixaban in 2016 was kept on ASA as prophylactic after that per patient - Will hold ASA and start on enoxaparin dosing. - Plan to resume ASA and d/c enoxaparin upon discharge. 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 #Hyperlipidemia - Continue on Statin DISPOSITION: Attended staffing, 15 min, 10/02/2018. Discussed with case management, PT, OT, nursing, dietitian. Attended family meeting, 30 min. works in [place] and is gone 12 hr a day. May need as much as 2-3 weeks of inpatient rehabilitation to achieve sufficient independence to return home. Good progress in her 1st week. Weekly reassessment regarding length of stay. Goal sufficient independence to return home. She may need tree surgeon helper. # Follow Up - PCP - Rosio Bach, Neurology (in [facility]) 10/06/18 14:49 Subjective: No complaints. Slept well. No fevers or chills, no cough or dyspnea. Gets or neuropathic discomfort on right forearm and hand but has no actual movement. Thinks it may be getting worse as she is due for Botox injection on 10/12/2017. She says she wants to be free of the female catheter and able to make transfers to the commode by the time she discharges home. Objective: Vital Signs Temp Pulse Resp BP Pulse Ox 37.3 C 83 12 107/70 94 10/06/18 13:03 10/06/18 13:03 10/06/18 13:03 10/06/18 13:03 10/06/18 13:03 Laboratory Results 09/28/18 07:00 09/27/18 06:00 10/05/18 10/06/18 10/07/18 05:59 05:59 05:59 Intake Total 660 950 20 Output Total 1245 1475 350 Balance -585 -525 -330 Physical Exam - Physical Exam General Appearance: WD/WN, alert, no apparent distress Respiratory: No respiratory distress, No accessory muscle use Skin: normal color, warm/dry Neuro/Psych: alert, normal mood/affect, oriented x 3 ICD10 Worksheet Patient Problems: Problems Problem Status Onset Hypotension Acute Sepsis Acute Septic shock Acute Urinary tract infection Acute
[2018-10-06] MEDS: ACETAMINOPHEN 325 MG TAB PO PRN (22:02)
[2018-10-06] MEDS: MELATONIN 3 MG TAB PO PRN (22:02)
[2018-10-06] MEDS: tiZANidine HCL 2 MG TAB PO SCH (22:02)
[2018-10-06] MEDS: ATORVASTATIN CALCIUM 20 MG TAB PO SCH (22:02)
[2018-10-06] MEDS: LIDOCAINE 4% 15 GM CREAM TP PRN (22:03)
[2018-10-06] MEDS: DICLOFENAC SODIUM 1% 100 GM GEL TP PRN (22:30)
[2018-10-07] MEDS: ACETAMINOPHEN 325 MG TAB PO PRN ×2 (05:22→22:06)
[2018-10-07] MEDS: BACLOFEN 10 MG TAB PO SCH ×2 (05:23→17:34)
[2018-10-07] MEDS: SENNOSIDES 1 TAB PO SCH ×2 (08:18→22:06)
[2018-10-07] MEDS: TAMSULOSIN HCL 0.4 MG CAP PO SCH (08:18)
[2018-10-07] MEDS: CHOLECALCIFEROL VIT D3 2,000 UNITS TAB/CAP PO SCH (08:18)
[2018-10-07] MEDS: MULTIVITAMINS 1 EACH TAB PO SCH (08:18)
[2018-10-07] MEDS: ENOXAPARIN 40 MG/0.4 ML SYR SC SCH (08:18)
--- NOTE | 2018-10-07 09:54 | SOAPPROG ---
SOAP Progress Note Assessment/Plan: Assessment: # Debility 2/2 severe sepsis and exacerbations of weakness from her MS, hospitalized 09/20/2018. * Initial functional independence measure his 49 on 09/28/2018, improved to 59 as of 10/02/2018. Moderate assist with bed mobility. Has impulsivity and needs close cuing to slow down. Transfers with Janna steady and 2 person assist. Has done sit to nuclear fuel processing technician parallel bars with assist of 2. Ambulated 5 ft x 2 in parallel bars with assist of 2 total assist for lower body dressing and toileting. Moderate assist for bathing and upper body dressing. Has urinary incontinence when she has extensor spasms.. * Continue PT and OT will optimize her ADLs, transfers, mobility and stair negotiation. * Consider trial of endurance training with gradual increase of duration, on Aspida machine. She expressed enthusiasm about the idea. Discussed with physical therapy. # Neurogenic bladder. Has retention with postvoid residuals in the mid 200s as well as overactivity, and no sensation of bladder fullness. * Discontinue hydrochlorothiazide. She has not used it for several days due to low blood pressures. * Unlikely to be able to self catheterization due to issues with seated balance and reduced dexterity with her hands. * Initiated tamsulosin 09/30/2018. Has improved residuals with range of 65 to 170; previously had been mid 200s. * Continue rehabilitation bladder program. # Spasticity Takes baclofen and gets botox through neurology as outpt * Used baclofen PRN at home, 80-100 mg each day typically. * Scheduled baclofen 40 mg in AM before arising, 20 mg before lunch, and 40 mg before dinner, starting afternoon of 09/28/2018. * Trial of tizanidine 1 mg at HS starting 10/01/2018. It has helped her sleep but unclear if it has helped spasticity. Increased to 2 mg at HS starting 2018 as it may help her neuropathic symptoms in the right arm and it may help extensor spasms which she experiences if she moves after being in 1 position for a prolonged period of time. Continue to monitor. - Scheduled for Botox on 10/12. She will need to reschedule. 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 Symptoms relieved with Tums. Vitals were stable. * Had indeterminate troponins during hospitalization. 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 Echocardiogram was normal but for mild mitral and tricuspid regurgitation. * Monitor were for recurrent symptoms. Will have low threshold for EKG and troponins versus transfer to emergency department. # Edema. She reports history of venous insufficiency in the left leg. She reports hydrochlorothiazide is prescribed for edema rather than for blood pressure. * Blood pressure is too low for hydrochlorothiazide, and it may not be the optimal treatment for edema due to venous insufficiency. * Continue compression stockings. * Weight and edema have been stable. Change weights from daily to every Friday. #Multiple Sclerosis * Usually receives PEG-interferon q2 weeks. Last due on 09/26. ID said OK to continue. * Patient reports she was interested in discontinuing. She says she typically has 3 days of weakness after an injection. She reports that her primary neurologist, Dr. Rosio Bach in [place], advised her to continue. Will defer to Dr. Bach for decision when patient follows up after discharge. # Dysuria, 10/03/2018. * Positive urinalysis, 10/03/2018, with white blood cells and leukocyte esterase. She denies symptoms currently, as of 10/04/2018. * Culture result 10/05/2018 with 8000 CFU yeast. No treatment indicated # Rash on right upper back. * PCR test negative for zoster. * Nursing using house skin lotion. # Sepsis 2/2 E.coli Bactermia/UTI - Finishing her Oral ABX cipro on 09/30 as per ID recs. - Continue to monitor for S/Sx of infection # Thrombocytopenia - Resolved as per labs on 09/27 and 325. # Transaminitis - Resolving per labs on 09/27 still slightly elevated ALT and AlkPhos # Anemia - Slightly drop on labs on 09/27. Improving on 09/28/2018. - No evidence of bleeding on exam will monitor now that starting enoxaparin. #History of LE DVT - Was on apixaban in 2016 was kept on ASA as prophylactic after that per patient - Will hold ASA and start on enoxaparin dosing. - Plan to resume ASA and d/c enoxaparin upon discharge. Per literature review , there is no indication for halfway anticoagulation in multiple sclerosis. #Hyperlipidemia - Continue on Statin DISPOSITION: Attended staffing, 15 min, 10/02/2018. Discussed with case management, PT, OT, nursing, dietitian. Attended family meeting, 30 min. works in [place] and is gone 12 hr a day. May need as much as 2-3 weeks of inpatient rehabilitation to achieve sufficient independence to return home. Good progress in her 1st week. Weekly reassessment regarding length of stay. Goal sufficient independence to return home. She may need belt builder helper. Tentative discharge date is 10/16/2018. # Follow Up - PCP - Rosio Bach, Neurology (in [facility]) 10/07/18 12:07 Subjective: Had neuropathic symptoms in her right forearm and hand overnight which awoke her from sleep. Noted some bleeding when she brushed her teeth this morning. Has no mouth pain. Otherwise doing well and without complaint. No cough or dyspnea, no fevers or chills. Objective: Vital Signs Temp Pulse Resp BP Pulse Ox 36.4 C 58 L 16 118/55 L 91 L 10/07/18 05:18 10/07/18 05:18 10/07/18 05:18 10/07/18 05:18 10/07/18 05:18 Laboratory Results 09/28/18 07:00 09/27/18 06:00 10/06/18 10/07/18 10/08/18 05:59 05:59 05:59 Intake Total 950 1370 Output Total 1475 800 Balance -525 570 Physical Exam - Physical Exam General Appearance: WD/WN, alert, no apparent distress EENT: No pharyngeal erythema Respiratory: normal breath sounds, No crackles, No rhonchi, No wheezing Cardiac/Chest: regular rate, rhythm, edema (Trace to 1+ bilateral lower extremities), No diastolic murmur, No systolic murmur Skin: normal color, warm/dry Neuro/Psych: alert, normal mood/affect, oriented x 3, motor weakness (Observed patient arising from seated to stand on Janna study with assist per PT.) ICD10 Worksheet Patient Problems: Problems Problem Status Onset Hypotension Acute Sepsis Acute Septic shock Acute Urinary tract infection Acute
[2018-10-07] MEDS: BACLOFEN 20 MG TAB PO SCH (12:30)
[2018-10-07] MEDS: POLYETHYLENE GLYCOL 3350 17 GM PKT PO PRN (17:52)
[2018-10-07] MEDS: LIDOCAINE 4% 15 GM CREAM TP PRN (22:03)
[2018-10-07] MEDS: CALCIUM CARBONATE 500 MG CHEWABLE TAB PO PRN (22:03)
[2018-10-07] MEDS: DICLOFENAC SODIUM 1% 100 GM GEL TP PRN (22:04)
[2018-10-07] MEDS: MELATONIN 3 MG TAB PO PRN (22:06)
[2018-10-07] MEDS: tiZANidine HCL 2 MG TAB PO SCH (22:06)
[2018-10-07] MEDS: ATORVASTATIN CALCIUM 20 MG TAB PO SCH (22:07)
[2018-10-08] MEDS: LIDOCAINE 4% 15 GM CREAM TP PRN ×2 (03:56→22:10)
[2018-10-08] MEDS: ACETAMINOPHEN 325 MG TAB PO PRN ×2 (05:39→22:09)
[2018-10-08] MEDS: BACLOFEN 10 MG TAB PO SCH ×2 (05:39→18:02)
[2018-10-08] MEDS: ENOXAPARIN 40 MG/0.4 ML SYR SC SCH (07:59)
[2018-10-08] MEDS: CHOLECALCIFEROL VIT D3 2,000 UNITS TAB/CAP PO SCH (07:59)
[2018-10-08] MEDS: SENNOSIDES 1 TAB PO SCH ×2 (07:59→22:09)
[2018-10-08] MEDS: MULTIVITAMINS 1 EACH TAB PO SCH (07:59)
[2018-10-08] MEDS: TAMSULOSIN HCL 0.4 MG CAP PO SCH (07:59)
--- NOTE | 2018-10-08 12:08 | SOAPPROG ---
SOAP Progress Note Assessment/Plan: Assessment: # Debility 2/2 severe sepsis and exacerbations of weakness from her MS, hospitalized 09/20/2018. * Initial functional independence measure his 49 on 09/28/2018, improved to 59 as of 10/02/2018. Moderate assist with bed mobility. Has impulsivity and needs close cuing to slow down. Transfers with Janna steady and 2 person assist. Has done sit to traffic coordinator parallel bars with assist of 2. Ambulated 5 ft x 2 in parallel bars with assist of 2 total assist for lower body dressing and toileting. Moderate assist for bathing and upper body dressing. Has urinary incontinence when she has extensor spasms.. * As of 10/08/2018, working on sit to stand transfers. Has approximately 1 min standing endurance. * Continue PT and OT will optimize her ADLs, transfers, mobility and stair negotiation. # Neurogenic bladder. Has retention with postvoid residuals in the mid 200s as well as overactivity, and no sensation of bladder fullness. * Discontinue hydrochlorothiazide. She has not used it for several days due to low blood pressures. * Unlikely to be able to self catheterization due to issues with seated balance and reduced dexterity with her hands. * Initiated tamsulosin 09/30/2018. Has improved residuals with range of 65 to 170; previously had been mid 200s. * Continue rehabilitation bladder program. # Spasticity Takes baclofen and gets botox through neurology as outpt * Used baclofen PRN at home, 80-100 mg each day typically. * Scheduled baclofen 40 mg in AM before arising, 20 mg before lunch, and 40 mg before dinner, starting afternoon of 09/28/2018. * Trial of tizanidine 1 mg at HS starting 10/01/2018. It has helped her sleep but unclear if it has helped spasticity. Increased to 2 mg at HS starting 2018 as it may help her neuropathic symptoms in the right arm and it may help extensor spasms which she experiences if she moves after being in 1 position for a prolonged period of time. Continue to monitor. - Scheduled for Botox on 10/12. She will need to reschedule. 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 Symptoms relieved with Tums. Vitals were stable. * Had indeterminate troponins during hospitalization. 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 Echocardiogram was normal but for mild mitral and tricuspid regurgitation. * Monitor were for recurrent symptoms. Will have low threshold for EKG and troponins versus transfer to emergency department. # Edema. She reports history of venous insufficiency in the left leg. She reports hydrochlorothiazide is prescribed for edema rather than for blood pressure. * Blood pressure is too low for hydrochlorothiazide, and it may not be the optimal treatment for edema due to venous insufficiency. * Continue compression stockings. * Weight and edema have been stable. Change weights from daily to every Friday. #Multiple Sclerosis * Usually receives PEG-interferon q2 weeks. Last due on 09/26. ID said OK to continue. * Patient reports she was interested in discontinuing. She says she typically has 3 days of weakness after an injection. She reports that her primary neurologist, Dr. Rosio Bach in [place], advised her to continue. Will defer to Dr. Bach for decision when patient follows up after discharge. # Dysuria, 10/03/2018. * Positive urinalysis, 10/03/2018, with white blood cells and leukocyte esterase. She denies symptoms currently, as of 10/04/2018. * Culture result 10/05/2018 with 8000 CFU yeast. No treatment indicated # Rash on right upper back. * PCR test negative for zoster. * Nursing using house skin lotion. # Sepsis 2/2 E.coli Bactermia/UTI - Finishing her Oral ABX cipro on 09/30 as per ID recs. - Continue to monitor for S/Sx of infection # Thrombocytopenia - Resolved as per labs on 09/27 and 325. # Transaminitis - Resolving per labs on 09/27 still slightly elevated ALT and AlkPhos # Anemia - Slightly drop on labs on 09/27. Improving on 09/28/2018. - No evidence of bleeding on exam will monitor now that starting enoxaparin. #History of LE DVT - Was on apixaban in 2016 was kept on ASA as prophylactic after that per patient - Will hold ASA and start on enoxaparin dosing. - Plan to resume ASA and d/c enoxaparin upon discharge. Per literature review , there is no indication for penitentiary anticoagulation in multiple sclerosis. #Hyperlipidemia - Continue on Statin DISPOSITION: Attended staffing, 15 min, 10/02/2018. Discussed with case management, PT, OT, nursing, dietitian. Attended family meeting, 30 min. works in [place] and is gone 12 hr a day. May need as much as 2-3 weeks of inpatient rehabilitation to achieve sufficient independence to return home. Good progress in her 1st week. Weekly reassessment regarding length of stay. Goal sufficient independence to return home. She may need cable worker helper. Tentative discharge date is 10/16/2018. # Follow Up - PCP - Rosio Bach, Neurology (in [facility])? Intends to establish with new neurologist at [facility]. 10/08/18 12:05 Subjective: Reports on accident with the external female catheter overnight and needed to have bed sheets changed, which interfered with sleep. Otherwise no complaints. Feels like she is getting stronger. Objective: Vital Signs Temp Pulse Resp BP Pulse Ox 36.5 C 64 15 107/58 L 92 10/08/18 08:00 10/08/18 08:00 10/08/18 08:00 10/08/18 08:00 10/08/18 08:00 Laboratory Results 09/28/18 07:00 09/27/18 06:00 10/07/18 10/08/18 10/09/18 05:59 05:59 05:59 Intake Total 1370 900 Output Total 800 1553 Balance 570 -653 Physical Exam - Physical Exam General Appearance: WD/WN, alert, no apparent distress Respiratory: normal breath sounds, No crackles, No rhonchi, No wheezing Cardiac/Chest: regular rate, rhythm, edema (Trace bilateral lower extremities), No JVD, No diastolic murmur, No systolic murmur Skin: normal color, warm/dry Neuro/Psych: alert, normal mood/affect, oriented x 3, motor weakness ICD10 Worksheet Patient Problems: Problems Problem Status Onset Hypotension Acute Sepsis Acute Septic shock Acute Urinary tract infection Acute
[2018-10-08] MEDS: BACLOFEN 20 MG TAB PO SCH (13:26)
[2018-10-08] MEDS: tiZANidine HCL 2 MG TAB PO SCH (22:10)
[2018-10-08] MEDS: ATORVASTATIN CALCIUM 20 MG TAB PO SCH (22:10)
[2018-10-08] MEDS: MELATONIN 3 MG TAB PO PRN (22:10)
[2018-10-08] MEDS: DICLOFENAC SODIUM 1% 100 GM GEL TP PRN (22:22)
[2018-10-09] MEDS: BACLOFEN 10 MG TAB PO SCH ×2 (06:20→17:22)
--- NOTE | 2018-10-09 09:54 | SOAPPROG ---
SOAP Progress Note Assessment/Plan: Assessment: # Debility 2/2 severe sepsis and exacerbations of weakness from her MS, hospitalized 09/20/2018. * Initial functional independence measure his 49 on 09/28/2018, improved to 59 as of 10/02/2018, and to 69 as of 10/08/2018. Moderate assist for bed mobility. Transfers with contact guard to minimal assist. Ambulated 5 ft with minimal assist of 2 in parallel bars. Can self propel a wheelchair 165 ft with standby assist. Does grooming and hygiene seated with setup. Upper body dressing requires minimal assist to standby assist. Lower body dressing requires maximal assist standing at the rail with assistance to hike her pants and get clothing over her feet. Toileting requires maximal assist for hygiene and clothing management. * Continue PT and OT will optimize her ADLs, transfers, mobility and stair negotiation. # Neurogenic bladder. Has retention with postvoid residuals in the mid 200s as well as overactivity, and no sensation of bladder fullness. * Discontinued hydrochlorothiazide. * Unlikely to be able to self catheterization due to issues with seated balance and reduced dexterity with her hands. * Initiated tamsulosin 09/30/2018. Has improved residuals with range of 65 to 170; previously had been mid 200s. * Continue rehabilitation bladder program. # Spasticity Takes baclofen and gets botox through neurology as outpt * Used baclofen PRN at home, 80-100 mg each day typically. * Scheduled baclofen 40 mg in AM before arising, 20 mg before lunch, and 40 mg before dinner, starting afternoon of 09/28/2018. * Trial of tizanidine 1 mg at HS starting 10/01/2018. It has helped her sleep but unclear if it has helped spasticity. Increased to 2 mg at HS starting 2018. Reports improvement in right hand/forearm neuropathic symptoms, and she slept better. No change in episodes of extensor spasm of the spine and legs, which can happen with movement after prolonged immobility such as when repositioning in bed at night. - Scheduled for Botox on 10/12. She will need to reschedule. 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 Symptoms relieved with Tums. Vitals were stable. * Had indeterminate troponins during hospitalization. 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 Echocardiogram was normal but for mild mitral and tricuspid regurgitation. * Monitor were for recurrent symptoms. Will have low threshold for EKG and troponins versus transfer to emergency department. # Edema. She reports history of venous insufficiency in the left leg. She reports hydrochlorothiazide is prescribed for edema rather than for blood pressure. * Blood pressure is too low for hydrochlorothiazide, and it may not be the optimal treatment for edema due to venous insufficiency. * Continue compression stockings. Edema has responded well. * Weight and edema have been stable. Change weights from daily to every Friday. #Multiple Sclerosis * Usually receives PEG-interferon q2 weeks. Last due on 09/26. ID said OK to continue. * Patient reports she was interested in discontinuing. She says she typically has 3 days of weakness after an injection. She reports that her primary neurologist, Dr. Rosio Bach in [place], advised her to continue. Will defer to Dr. Bach for decision when patient follows up after discharge. # Dysuria, 10/03/2018. * Positive urinalysis, 10/03/2018, with white blood cells and leukocyte esterase. She denies symptoms currently, as of 10/04/2018. * Culture result 10/05/2018 with 8000 CFU yeast. No treatment indicated # Rash on right upper back. * PCR test negative for zoster. * Nursing using house skin lotion. # Sepsis 2/2 E.coli Bactermia/UTI - Finishing her Oral ABX cipro on 09/30 as per ID recs. - Continue to monitor for S/Sx of infection # Thrombocytopenia - Resolved as per labs on 09/27 and 325. # Transaminitis - Resolving per labs on 09/27 still slightly elevated ALT and AlkPhos # Anemia - Slightly drop on labs on 09/27. Improving on 09/28/2018. - No evidence of bleeding on exam will monitor now that starting enoxaparin. #History of LE DVT - Was on apixaban in 2016 was kept on ASA as prophylactic after that per patient - Will hold ASA and start on enoxaparin dosing. - Plan to resume ASA and d/c enoxaparin upon discharge. Per literature review , there is no indication for terminologist anticoagulation in multiple sclerosis. #Hyperlipidemia - Continue on Statin DISPOSITION: Attended staffing, 15 min, 10/08/2018. Discussed with case management, PT, OT, nursing, dietitian. works in [place] and is gone 12 hr a day. May need as much as 2-3 weeks of inpatient rehabilitation to achieve sufficient independence to return home. Good progress in her 1st week. Weekly reassessment regarding length of stay. Goal sufficient independence to return home. She may need construction ironworker helper. Tentative discharge date is 10/23/2018. # Follow Up * PCP * Rosio Bach, Neurology (in [facility])? Intends to establish with new neurologist at [facility]. * Consider evaluation by Urology regarding bladder function. 10/09/18 12:08 Subjective: Reports nausea this morning. Resolves during our encounter. Slept better last night with increased dose of tizanidine. Concerned about bladder management at home and wonders if she can get an external female catheter for use at night. Objective: Vital Signs Temp Pulse Resp BP Pulse Ox 36.8 C 73 18 127/60 H 91 L 10/09/18 07:35 10/09/18 07:35 10/09/18 07:35 10/09/18 07:35 10/09/18 07:35 Laboratory Results 09/28/18 07:00 09/27/18 06:00 10/08/18 10/09/18 10/10/18 05:59 05:59 05:59 Intake Total 900 1860 Output Total 1553 1400 Balance -653 460 - Time Spent With Patient Time Spent With Patient: Greater than 35 min floor time today, including more than 50% of time in coordination of care during staffing meeting, and counseling patient. Physical Exam - Physical Exam General Appearance: WD/WN, alert, no apparent distress Respiratory: normal breath sounds, No crackles, No rhonchi, No wheezing Cardiac/Chest: regular rate, rhythm, No edema, No diastolic murmur, No systolic murmur Skin: normal color, warm/dry Neuro/Psych: alert, normal mood/affect, oriented x 3, motor weakness ICD10 Worksheet Patient Problems: Problems Problem Status Onset Hypotension Acute Sepsis Acute Septic shock Acute Urinary tract infection Acute
[2018-10-09] MEDS: CHOLECALCIFEROL VIT D3 2,000 UNITS TAB/CAP PO SCH (09:58)
[2018-10-09] MEDS: SENNOSIDES 1 TAB PO SCH ×2 (09:58→21:12)
[2018-10-09] MEDS: ENOXAPARIN 40 MG/0.4 ML SYR SC SCH (09:58)
[2018-10-09] MEDS: TAMSULOSIN HCL 0.4 MG CAP PO SCH (09:58)
[2018-10-09] MEDS: MULTIVITAMINS 1 EACH TAB PO SCH (09:58)
[2018-10-09] MEDS: BACLOFEN 20 MG TAB PO SCH (12:17)
[2018-10-09] MEDS: tiZANidine HCL 2 MG TAB PO SCH (21:12)
[2018-10-09] MEDS: MELATONIN 3 MG TAB PO PRN (21:13)
[2018-10-09] MEDS: ATORVASTATIN CALCIUM 20 MG TAB PO SCH (21:13)
[2018-10-09] MEDS: ACETAMINOPHEN 325 MG TAB PO PRN (21:13)
[2018-10-09] MEDS: LIDOCAINE 4% 15 GM CREAM TP PRN (21:14)
[2018-10-09] MEDS: DICLOFENAC SODIUM 1% 100 GM GEL TP PRN (21:14)
[2018-10-10] MEDS: BACLOFEN 10 MG TAB PO SCH ×2 (05:03→17:42)
--- NOTE | 2018-10-10 09:00 | HOSPPROG ---
Hospitalist Progress Note Assessment/Plan: # Debility 2/2 severe sepsis and exacerbations of weakness from her MS, hospitalized 09/20/2018. * Initial functional independence measure his 49 on 09/28/2018, improved to 59 as of 10/02/2018, and to 69 as of 10/08/2018. Moderate assist for bed mobility. Transfers with contact guard to minimal assist. Ambulated 5 ft with minimal assist of 2 in parallel bars. Can self propel a wheelchair 165 ft with standby assist. Does grooming and hygiene seated with setup. Upper body dressing requires minimal assist to standby assist. Lower body dressing requires maximal assist standing at the rail with assistance to hike her pants and get clothing over her feet. Toileting requires maximal assist for hygiene and clothing management. * Continue PT and OT will optimize her ADLs, transfers, mobility and stair negotiation. # Neurogenic bladder. Has retention with postvoid residuals in the mid 200s as well as overactivity, and no sensation of bladder fullness. * Discontinued hydrochlorothiazide. * Unlikely to be able to self catheterization due to issues with seated balance and reduced dexterity with her hands. * Initiated tamsulosin 09/30/2018. Has improved residuals with range of 65 to 170; previously had been mid 200s. * Continue rehabilitation bladder program. # Spasticity Takes baclofen and gets botox through neurology as outpt * Used baclofen PRN at home, 80-100 mg each day typically. * Scheduled baclofen 40 mg in AM before arising, 20 mg before lunch, and 40 mg before dinner, starting afternoon of 09/28/2018. * Trial of tizanidine 1 mg at HS starting 10/01/2018. It has helped her sleep but unclear if it has helped spasticity. Increased to 2 mg at HS starting 2018. Reports improvement in right hand/forearm neuropathic symptoms, and she slept better. No change in episodes of extensor spasm of the spine and legs, which can happen with movement after prolonged immobility such as when repositioning in bed at night. - Scheduled for Botox on 10/12. She will need to reschedule. 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 Symptoms relieved with Tums. Vitals were stable. * Had indeterminate troponins during hospitalization. EKGs x2 were consistent with possible old inferior wall [place] with Q-waves in AVF. Echocardiogram was normal but for mild mitral and tricuspid regurgitation. * Monitor were for recurrent symptoms. Will have low threshold for EKG and troponins versus transfer to emergency department. * NO CHEST PAIN TODAY # Edema. She reports history of venous insufficiency in the left leg. She reports hydrochlorothiazide is prescribed for edema rather than for blood pressure. * Blood pressure is too low for hydrochlorothiazide, and it may not be the optimal treatment for edema due to venous insufficiency. * Continue compression stockings. Edema has responded well. * Weight and edema have been stable. Change weights from daily to every Friday. #Multiple Sclerosis * Usually receives PEG-interferon q2 weeks. Last due on 09/26. ID said OK to continue. * Patient reports she was interested in discontinuing. She says she typically has 3 days of weakness after an injection. She reports that her primary neurologist, Dr. Rosio Bach in [place], advised her to continue. Will defer to Dr. Bach for decision when patient follows up after discharge. # Dysuria, 10/03/2018. * Positive urinalysis, 10/03/2018, with white blood cells and leukocyte esterase. She denies symptoms currently, as of 10/04/2018. * Culture result 10/05/2018 with 8000 CFU yeast. No treatment indicated # Rash on right upper back. * PCR test negative for zoster. * Nursing using house skin lotion. # Sepsis 2/2 E.coli Bactermia/UTI - Finishing her Oral ABX cipro on 09/30 as per ID recs. - Continue to monitor for S/Sx of infection # Thrombocytopenia - Resolved as per labs on 09/27 and 325. # Transaminitis - Resolving per labs on 09/27 still slightly elevated ALT and AlkPhos # Anemia - Slightly drop on labs on 09/27. Improving on 09/28/2018. - No evidence of bleeding on exam will monitor now that starting enoxaparin. #History of LE DVT - Was on apixaban in 2016 was kept on ASA as prophylactic after that per patient - Will hold ASA and start on enoxaparin dosing. - Plan to resume ASA and d/c enoxaparin upon discharge. 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 #Hyperlipidemia - Continue on Statin Subjective: neuropathic pain better right arm. no new complaints Objective: Vital Signs Temp Pulse Resp BP Pulse Ox 36.8 C 65 18 109/57 L 92 10/10/18 07:54 10/10/18 07:54 10/10/18 07:54 10/10/18 07:54 10/10/18 07:54 Laboratory Results 09/28/18 07:00 09/27/18 06:00 10/09/18 10/10/18 10/11/18 05:59 05:59 05:59 Intake Total 1860 1720 300 Output Total 1400 100 900 Balance 460 1620 -600 - Physical Exam Constitutional: no apparent distress, appears nourished, not in pain Eyes: anicteric sclera, EOMI Ears, Nose, Mouth, Throat: moist mucous membranes Cardiovascular: regular rate and rhythym Respiratory: no respiratory distress Neurologic: AAOx3 Psychiatric: interacting appropriately, not anxious, not encephalopathic, thought process linear ICD10 Worksheet Patient Problems: Problems Problem Status Onset Hypotension Acute Sepsis Acute Septic shock Acute Urinary tract infection Acute
[2018-10-10] MEDS: MULTIVITAMINS 1 EACH TAB PO SCH (09:22)
[2018-10-10] MEDS: ENOXAPARIN 40 MG/0.4 ML SYR SC SCH (09:22)
[2018-10-10] MEDS: SENNOSIDES 1 TAB PO SCH ×2 (09:22→21:50)
[2018-10-10] MEDS: CHOLECALCIFEROL VIT D3 2,000 UNITS TAB/CAP PO SCH (09:23)
[2018-10-10] MEDS: TAMSULOSIN HCL 0.4 MG CAP PO SCH (09:23)
[2018-10-10] MEDS: BACLOFEN 20 MG TAB PO SCH (12:02)
[2018-10-10] MEDS: ATORVASTATIN CALCIUM 20 MG TAB PO SCH (21:50)
[2018-10-10] MEDS: tiZANidine HCL 2 MG TAB PO SCH (21:50)
[2018-10-10] MEDS: ACETAMINOPHEN 325 MG TAB PO PRN (21:50)
[2018-10-10] MEDS: MELATONIN 3 MG TAB PO PRN (21:50)
[2018-10-10] MEDS: LIDOCAINE 4% 15 GM CREAM TP PRN (22:14)
[2018-10-10] MEDS: DICLOFENAC SODIUM 1% 100 GM GEL TP PRN (22:15)
[2018-10-11] MEDS: BACLOFEN 10 MG TAB PO SCH ×3 (06:00→18:00)
--- NOTE | 2018-10-11 08:35 | HOSPPROG ---
Hospitalist Progress Note Assessment/Plan: # Debility 2/2 severe sepsis and exacerbations of weakness from her MS, hospitalized 09/20/2018. * Initial functional independence measure his 49 on 09/28/2018, improved to 59 as of 10/02/2018, and to 69 as of 10/08/2018. Moderate assist for bed mobility. Transfers with contact guard to minimal assist. Ambulated 5 ft with minimal assist of 2 in parallel bars. Can self propel a wheelchair 165 ft with standby assist. Does grooming and hygiene seated with setup. Upper body dressing requires minimal assist to standby assist. Lower body dressing requires maximal assist standing at the rail with assistance to hike her pants and get clothing over her feet. Toileting requires maximal assist for hygiene and clothing management. * Continue PT and OT will optimize her ADLs, transfers, mobility and stair negotiation. # Neurogenic bladder. Has retention with postvoid residuals in the mid 200s as well as overactivity, and no sensation of bladder fullness. * Discontinued hydrochlorothiazide. * Unlikely to be able to self catheterization due to issues with seated balance and reduced dexterity with her hands. * Initiated tamsulosin 09/30/2018. Has improved residuals with range of 65 to 170; previously had been mid 200s. * Continue rehabilitation bladder program. # Spasticity Takes baclofen and gets botox through neurology as outpt * Used baclofen PRN at home, 80-100 mg each day typically. * Scheduled baclofen 40 mg in AM before arising, 20 mg before lunch, and 40 mg before dinner, starting afternoon of 09/28/2018. * Trial of tizanidine 1 mg at HS starting 10/01/2018. It has helped her sleep but unclear if it has helped spasticity. Increased to 2 mg at HS starting 2018. Reports improvement in right hand/forearm neuropathic symptoms, and she slept better. No change in episodes of extensor spasm of the spine and legs, which can happen with movement after prolonged immobility such as when repositioning in bed at night. - Scheduled for Botox on 10/12. She will need to reschedule. 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 Symptoms relieved with Tums. Vitals were stable. * Had indeterminate troponins during hospitalization. EKGs x2 were consistent with possible old inferior wall [place] with Q-waves in AVF. Echocardiogram was normal but for mild mitral and tricuspid regurgitation. * Monitor were for recurrent symptoms. Will have low threshold for EKG and troponins versus transfer to emergency department. * NO CHEST PAIN TODAY # Edema. She reports history of venous insufficiency in the left leg. She reports hydrochlorothiazide is prescribed for edema rather than for blood pressure. * Blood pressure is too low for hydrochlorothiazide, and it may not be the optimal treatment for edema due to venous insufficiency. * Continue compression stockings. Edema has responded well. * Weight and edema have been stable. Change weights from daily to every Friday. #Multiple Sclerosis * Usually receives PEG-interferon q2 weeks. Last due on 09/26. ID said OK to continue. * Patient reports she was interested in discontinuing. She says she typically has 3 days of weakness after an injection. She reports that her primary neurologist, Dr. Rosio Bach in [place], advised her to continue. Will defer to Dr. Bach for decision when patient follows up after discharge. # Dysuria, 10/03/2018. * Positive urinalysis, 10/03/2018, with white blood cells and leukocyte esterase. She denies symptoms currently, as of 10/04/2018. * Culture result 10/05/2018 with 8000 CFU yeast. No treatment indicated # Rash on right upper back. * PCR test negative for zoster. * Nursing using house skin lotion. # Sepsis 2/2 E.coli Bactermia/UTI - Finishing her Oral ABX cipro on 09/30 as per ID recs. - Continue to monitor for S/Sx of infection # Thrombocytopenia - Resolved as per labs on 09/27 and 325. # Transaminitis - Resolving per labs on 09/27 still slightly elevated ALT and AlkPhos # Anemia - Slightly drop on labs on 09/27. Improving on 09/28/2018. - No evidence of bleeding on exam will monitor now that starting enoxaparin. #History of LE DVT - Was on apixaban in 2016 was kept on ASA as prophylactic after that per patient - Will hold ASA and start on enoxaparin dosing. - Plan to resume ASA and d/c enoxaparin upon discharge. Per literature review , there is no indication for dean of instruction anticoagulation in multiple sclerosis. #Hyperlipidemia - Continue on Statin Subjective: feeling stronger Objective: Vital Signs Temp Pulse Resp BP Pulse Ox 36.8 C 85 16 115/65 94 10/10/18 17:57 10/10/18 17:57 10/10/18 17:57 10/10/18 17:57 10/10/18 17:57 Laboratory Results 09/28/18 07:00 09/27/18 06:00 10/10/18 10/11/18 10/12/18 05:59 05:59 05:59 Intake Total 1720 1140 Output Total 100 1450 Balance 1620 -310 - Physical Exam Constitutional: no apparent distress, appears nourished, not in pain Eyes: anicteric sclera Ears, Nose, Mouth, Throat: moist mucous membranes Cardiovascular: edema (bilateral foot edema) Respiratory: no respiratory distress Skin: warm Neurologic: AAOx3 Psychiatric: interacting appropriately, not anxious, not encephalopathic, thought process linear ICD10 Worksheet Patient Problems: Problems Problem Status Onset Hypotension Acute Sepsis Acute Septic shock Acute Urinary tract infection Acute
[2018-10-11] MEDS: ENOXAPARIN 40 MG/0.4 ML SYR SC SCH (08:50)
[2018-10-11] MEDS: TAMSULOSIN HCL 0.4 MG CAP PO SCH (08:50)
[2018-10-11] MEDS: CHOLECALCIFEROL VIT D3 2,000 UNITS TAB/CAP PO SCH (08:50)
[2018-10-11] MEDS: SENNOSIDES 1 TAB PO SCH ×2 (08:50→20:46)
[2018-10-11] MEDS: MULTIVITAMINS 1 EACH TAB PO SCH (08:50)
[2018-10-11] MEDS: BACLOFEN 20 MG TAB PO SCH (11:44)
[2018-10-11] MEDS: LIDOCAINE 4% 15 GM CREAM TP PRN (20:45)
[2018-10-11] MEDS: ACETAMINOPHEN 325 MG TAB PO PRN (20:46)
[2018-10-11] MEDS: MELATONIN 3 MG TAB PO PRN (20:46)
[2018-10-11] MEDS: DICLOFENAC SODIUM 1% 100 GM GEL TP PRN (20:47)
[2018-10-11] MEDS: tiZANidine HCL 2 MG TAB PO SCH (20:47)
[2018-10-11] MEDS: ATORVASTATIN CALCIUM 20 MG TAB PO SCH (20:47)
[2018-10-12] MEDS: BACLOFEN 10 MG TAB PO SCH ×2 (05:12→17:32)
[2018-10-12] MEDS: TAMSULOSIN HCL 0.4 MG CAP PO SCH (08:38)
[2018-10-12] MEDS: ENOXAPARIN 40 MG/0.4 ML SYR SC SCH (08:38)
[2018-10-12] MEDS: MULTIVITAMINS 1 EACH TAB PO SCH (08:38)
[2018-10-12] MEDS: CHOLECALCIFEROL VIT D3 2,000 UNITS TAB/CAP PO SCH (08:38)
[2018-10-12] MEDS: SENNOSIDES 1 TAB PO SCH ×2 (08:38→21:56)
--- NOTE | 2018-10-12 11:42 | SOAPPROG ---
SOAP Progress Note Assessment/Plan: Assessment: # Debility 2/2 severe sepsis and exacerbation of weakness from her MS, hospitalized 09/20/2018. * Initial functional independence measure his 49 on 09/28/2018, improved to 59 as of 10/02/2018, and to 69 as of 10/08/2018. Moderate assist for bed mobility. Transfers with contact guard to minimal assist. Ambulated 5 ft with minimal assist of 2 in parallel bars. Can self propel a wheelchair 165 ft with standby assist. Does grooming and hygiene seated with setup. Upper body dressing requires minimal assist to standby assist. Lower body dressing requires maximal assist standing at the rail with assistance to hike her pants and get clothing over her feet. Toileting requires maximal assist for hygiene and clothing management. * Continue PT and OT will optimize her ADLs, transfers, mobility and stair negotiation. # Neurogenic bladder. Has retention with postvoid residuals in the mid 200s as well as overactivity, and no sensation of bladder fullness. * Discontinued hydrochlorothiazide. * Unlikely to be able to self catheterization due to issues with seated balance and reduced dexterity with her hands. * Initiated tamsulosin 09/30/2018. Has improved residuals with range of 65 to 170; previously had been mid 200s. * Continue rehabilitation bladder program. # Spasticity Takes baclofen and gets botox through neurology as outpt * Used baclofen PRN at home, 80-100 mg each day typically. * Scheduled baclofen 40 mg in AM before arising, 20 mg before lunch, and 40 mg before dinner, starting afternoon of 09/28/2018. * Trial of tizanidine 1 mg at HS starting 10/01/2018. It has helped her sleep but unclear if it has helped spasticity. Increased to 2 mg at HS starting 2018. Reports improvement in right hand/forearm neuropathic symptoms, and she slept better. No change in episodes of extensor spasm of the spine and legs, which can happen with movement after prolonged immobility such as when repositioning in bed at night. - Scheduled for Botox on 10/12. She will need to reschedule. 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 Symptoms relieved with Tums. Vitals were stable. * Had indeterminate troponins during hospitalization. EKGs x2 were consistent with possible old inferior wall [place] with Q-waves in AVF. Echocardiogram was normal but for mild mitral and tricuspid regurgitation. * Monitor were for recurrent symptoms. Will have low threshold for EKG and troponins versus transfer to emergency department. # Edema. She reports history of venous insufficiency in the left leg. She reports hydrochlorothiazide is prescribed for edema rather than for blood pressure. * Blood pressure is too low for hydrochlorothiazide, and it may not be the optimal treatment for edema due to venous insufficiency. * Continue compression stockings. Edema has responded well. * Weight and edema have been stable. Change weights from daily to every Friday. #Multiple Sclerosis * Usually receives PEG-interferon q2 weeks. Last due on 09/26. ID said OK to continue. * Patient reports she was interested in discontinuing. She says she typically has 3 days of weakness after an injection. She reports that her primary neurologist, Dr. Rosio Bach in [place], advised her to continue. Will defer to Dr. Bach for decision when patient follows up after discharge. # Dysuria, 10/03/2018. * Positive urinalysis, 10/03/2018, with white blood cells and leukocyte esterase. She denies symptoms currently, as of 10/04/2018. * Culture result 10/05/2018 with 8000 CFU yeast. No treatment indicated # Rash on right upper back. * PCR test negative for zoster. * Nursing using house skin lotion. # Sepsis 2/2 E.coli Bactermia/UTI - Finishing her Oral ABX cipro on 09/30 as per ID recs. - Continue to monitor for S/Sx of infection # Thrombocytopenia - Resolved as per labs on 09/27 and 325. # Transaminitis - Resolving per labs on 09/27 still slightly elevated ALT and AlkPhos # Anemia - Slightly drop on labs on 09/27. Improving on 09/28/2018. - No evidence of bleeding on exam will monitor now that starting enoxaparin. #History of LE DVT - Was on apixaban in 2016 was kept on ASA as prophylactic after that per patient - Will hold ASA and start on enoxaparin dosing. - Plan to resume ASA and d/c enoxaparin upon discharge. 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 #Hyperlipidemia - Continue on Statin DISPOSITION: Attended staffing, 15 min, 10/08/2018. Discussed with case management, PT, OT, nursing, dietitian. works in [place] and is gone 12 hr a day. May need as much as 2-3 weeks of inpatient rehabilitation to achieve sufficient independence to return home. Good progress in her 1st week. Weekly reassessment regarding length of stay. Goal sufficient independence to return home. 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 Tentative discharge date is 10/23/2018. # Follow Up * PCP * Rosio Bach, Neurology (in [facility])? Intends to establish with new neurologist at [facility]. * Consider evaluation by Urology regarding bladder function. 10/12/18 11:41 Subjective: No complaints. Sleep was interrupted by neuropathic symptoms in right hand, which responded to topical treatment. Otherwise slept well. Says she feels she is getting better control over her bladder during the day, but still using the female external catheter at night. Slowly feeling stronger. Objective: Vital Signs Temp Pulse Resp BP Pulse Ox 36.9 C 69 14 106/55 L 90 L 10/12/18 08:00 10/12/18 08:00 10/12/18 08:00 10/12/18 08:00 10/12/18 08:00 Laboratory Results 09/28/18 07:00 09/27/18 06:00 10/11/18 10/12/18 10/13/18 05:59 05:59 05:59 Intake Total 1140 800 500 Output Total 1450 800 175 Balance -310 0 325 Physical Exam - Physical Exam General Appearance: WD/WN, alert, no apparent distress Respiratory: normal breath sounds, No crackles, No rhonchi, No wheezing Cardiac/Chest: regular rate, rhythm, No diastolic murmur, No systolic murmur Skin: normal color, warm/dry Neuro/Psych: alert, normal mood/affect, oriented x 3 ICD10 Worksheet Patient Problems: Problems Problem Status Onset Hypotension Acute Sepsis Acute Septic shock Acute Urinary tract infection Acute
[2018-10-12] MEDS: BACLOFEN 20 MG TAB PO SCH (11:50)
[2018-10-12] MEDS: tiZANidine HCL 2 MG TAB PO SCH (21:56)
[2018-10-12] MEDS: ATORVASTATIN CALCIUM 20 MG TAB PO SCH (21:56)
[2018-10-12] MEDS: MELATONIN 3 MG TAB PO PRN (21:57)
[2018-10-12] MEDS: DICLOFENAC SODIUM 1% 100 GM GEL TP PRN (21:57)
[2018-10-12] MEDS: ACETAMINOPHEN 325 MG TAB PO PRN (21:57)
[2018-10-12] MEDS: LIDOCAINE 4% 15 GM CREAM TP PRN (21:57)
[2018-10-13] MEDS: BACLOFEN 10 MG TAB PO SCH ×2 (06:02→17:40)
[2018-10-13] MEDS: CHOLECALCIFEROL VIT D3 2,000 UNITS TAB/CAP PO SCH (09:00)
[2018-10-13] MEDS: SENNOSIDES 1 TAB PO SCH ×2 (09:00→20:29)
[2018-10-13] MEDS: ENOXAPARIN 40 MG/0.4 ML SYR SC SCH (09:00)
[2018-10-13] MEDS: TAMSULOSIN HCL 0.4 MG CAP PO SCH (09:00)
[2018-10-13] MEDS: MULTIVITAMINS 1 EACH TAB PO SCH (09:01)
--- NOTE | 2018-10-13 09:59 | SOAPPROG ---
SOAP Progress Note Assessment/Plan: Assessment: # Debility 2/2 severe sepsis and exacerbation of weakness from her MS, hospitalized 09/20/2018. * Initial functional independence measure his 49 on 09/28/2018, improved to 59 as of 10/02/2018, and to 69 as of 10/08/2018. Moderate assist for bed mobility. Transfers with contact guard to minimal assist. Ambulated 5 ft with minimal assist of 2 in parallel bars. Can self propel a wheelchair 165 ft with standby assist. Does grooming and hygiene seated with setup. Upper body dressing requires minimal assist to standby assist. Lower body dressing requires maximal assist standing at the rail with assistance to hike her pants and get clothing over her feet. Toileting requires maximal assist for hygiene and clothing management. * Continue PT and OT will optimize her ADLs, transfers, mobility and stair negotiation. # Neurogenic bladder. Has retention with postvoid residuals in the mid 200s as well as overactivity, and no sensation of bladder fullness. * Discontinued hydrochlorothiazide. * Unlikely to be able to self catheterization due to issues with seated balance and reduced dexterity with her hands. * Initiated tamsulosin 09/30/2018. Has improved residuals with range of 65 to 170; previously had been mid 200s. * Continue rehabilitation bladder program. # Spasticity Takes baclofen and gets botox through neurology as outpt * Used baclofen PRN at home, 80-100 mg each day typically. * Scheduled baclofen 40 mg in AM before arising, 20 mg before lunch, and 40 mg before dinner, starting afternoon of 09/28/2018. * Trial of tizanidine 1 mg at HS starting 10/01/2018. It has helped her sleep but unclear if it has helped spasticity. Increased to 2 mg at HS starting 2018. Reports improvement in right hand/forearm neuropathic symptoms, and she slept better. No change in episodes of extensor spasm of the spine and legs, which can happen with movement after prolonged immobility such as when repositioning in bed at night. - Scheduled for Botox on 10/12. She will need to reschedule. 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 Symptoms relieved with Tums. Vitals were stable. * Had indeterminate troponins during hospitalization. 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 Echocardiogram was normal but for mild mitral and tricuspid regurgitation. * Monitor were for recurrent symptoms. Will have low threshold for EKG and troponins versus transfer to emergency department. # Edema. She reports history of venous insufficiency in the left leg. She reports hydrochlorothiazide is prescribed for edema rather than for blood pressure. * Blood pressure is too low for hydrochlorothiazide, and it may not be the optimal treatment for edema due to venous insufficiency. * Continue compression stockings. Edema has responded well. * Weight and edema have been stable. Change weights from daily to every Friday. #Multiple Sclerosis * Usually receives PEG-interferon q2 weeks. Last due on 09/26. ID said OK to continue. * Patient reports she was interested in discontinuing. She says she typically has 3 days of weakness after an injection. She reports that her primary neurologist, Dr. Rosio Bach in [place], advised her to continue. Will defer to Dr. Bach for decision when patient follows up after discharge. # Dysuria, 10/03/2018. * Positive urinalysis, 10/03/2018, with white blood cells and leukocyte esterase. She denies symptoms currently, as of 10/04/2018. * Culture result 10/05/2018 with 8000 CFU yeast. No treatment indicated # Rash on right upper back. * PCR test negative for zoster. * Nursing using house skin lotion. # Sepsis 2/2 E.coli Bactermia/UTI - Finishing her Oral ABX cipro on 09/30 as per ID recs. - Continue to monitor for S/Sx of infection # Thrombocytopenia - Resolved as per labs on 09/27 and 325. # Transaminitis - Resolving per labs on 09/27 still slightly elevated ALT and AlkPhos # Anemia - Slightly drop on labs on 09/27. Improving on 09/28/2018. - No evidence of bleeding on exam will monitor now that starting enoxaparin. #History of LE DVT - Was on apixaban in 2016 was kept on ASA as prophylactic after that per patient - Will hold ASA and start on enoxaparin dosing. - Plan to resume ASA and d/c enoxaparin upon discharge. Per literature review , there is no indication for medical terminologist anticoagulation in multiple sclerosis. #Hyperlipidemia - Continue on Statin DISPOSITION: Attended staffing, 15 min, 10/08/2018. Discussed with case management, PT, OT, nursing, dietitian. works in [place] and is gone 12 hr a day. May need as much as 2-3 weeks of inpatient rehabilitation to achieve sufficient independence to return home. Good progress in her 1st week. Weekly reassessment regarding length of stay. Goal sufficient independence to return home. 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 Tentative discharge date is 10/19/2018. # Follow Up * PCP * Rosio Bach, Neurology (in [facility])? Intends to establish with new neurologist at [facility]. * Consider evaluation by Urology regarding bladder function. 10/13/18 09:57 Subjective: Reports she awoke at about 530 this morning and was unable to get back to sleep. Otherwise no complaints. Not in pain. No fevers or chills, no cough or dyspnea. Objective: Vital Signs Temp Pulse Resp BP Pulse Ox 36.8 C 68 16 106/58 L 93 10/13/18 06:09 10/13/18 06:09 10/13/18 06:09 10/13/18 06:09 10/13/18 06:09 Laboratory Results 09/28/18 07:00 09/27/18 06:00 10/12/18 10/13/18 10/14/18 05:59 05:59 05:59 Intake Total 800 950 240 Output Total 800 1550 500 Balance 0 -600 -260 Physical Exam - Physical Exam General Appearance: WD/WN, alert, no apparent distress Respiratory: No respiratory distress, No accessory muscle use Skin: normal color, warm/dry Neuro/Psych: alert, normal mood/affect, oriented x 3 ICD10 Worksheet Patient Problems: Problems Problem Status Onset Hypotension Acute Sepsis Acute Septic shock Acute Urinary tract infection Acute
[2018-10-13] MEDS: BACLOFEN 20 MG TAB PO SCH (12:13)
[2018-10-13] MEDS: ATORVASTATIN CALCIUM 20 MG TAB PO SCH (20:29)
[2018-10-13] MEDS: tiZANidine HCL 2 MG TAB PO SCH (20:29)
[2018-10-13] MEDS: ACETAMINOPHEN 325 MG TAB PO PRN (20:29)
[2018-10-13] MEDS: MELATONIN 3 MG TAB PO PRN (20:30)
[2018-10-13] MEDS: LIDOCAINE 4% 15 GM CREAM TP PRN (20:31)
[2018-10-13] MEDS: DICLOFENAC SODIUM 1% 100 GM GEL TP PRN (20:32)
[2018-10-14] MEDS: BACLOFEN 10 MG TAB PO SCH ×2 (05:01→17:54)
[2018-10-14] MEDS: SENNOSIDES 1 TAB PO SCH ×2 (08:50→20:38)
[2018-10-14] MEDS: CHOLECALCIFEROL VIT D3 2,000 UNITS TAB/CAP PO SCH (08:50)
[2018-10-14] MEDS: MULTIVITAMINS 1 EACH TAB PO SCH (08:50)
[2018-10-14] MEDS: TAMSULOSIN HCL 0.4 MG CAP PO SCH (08:50)
[2018-10-14] MEDS: ENOXAPARIN 40 MG/0.4 ML SYR SC SCH (08:50)
--- NOTE | 2018-10-14 10:38 | SOAPPROG ---
SOAP Progress Note Assessment/Plan: Assessment: # Debility 2/2 severe sepsis and exacerbation of weakness from her MS, hospitalized 09/20/2018. * Initial functional independence measure his 49 on 09/28/2018, improved to 59 as of 10/02/2018, and to 69 as of 10/08/2018. Moderate assist for bed mobility. Transfers with contact guard to minimal assist. Ambulated 5 ft with minimal assist of 2 in parallel bars. Can self propel a wheelchair 165 ft with standby assist. Does grooming and hygiene seated with setup. Upper body dressing requires minimal assist to standby assist. Lower body dressing requires maximal assist standing at the rail with assistance to hike her pants and get clothing over her feet. Toileting requires maximal assist for hygiene and clothing management. * Continue PT and OT will optimize her ADLs, transfers, mobility and stair negotiation. # Neurogenic bladder. Has retention with postvoid residuals in the mid 200s as well as overactivity, and no sensation of bladder fullness. * Discontinued hydrochlorothiazide. * Unlikely to be able to self catheterization due to issues with seated balance and reduced dexterity with her hands. * Initiated tamsulosin 09/30/2018. Has improved residuals with range of 65 to 170; previously had been mid 200s. * Continue rehabilitation bladder program. * Will consider nighttime dose of Ditropan to see if this improves nocturnal incontinence # Spasticity Takes baclofen and gets botox through neurology as outpt * Used baclofen PRN at home, 80-100 mg each day typically. * Scheduled baclofen 40 mg in AM before arising, 20 mg before lunch, and 40 mg before dinner, starting afternoon of 09/28/2018. DISCUSSED WITH PATIENT THAT IF INCREASED TONE AND/OR SPASTICITY IN THE RIGHT FOREARM AND RIGHT LEG CONTINUE TO BE AN ISSUE THEN WE CAN ALWAYS INCREASE THE BACLOFEN UP TO A TOTAL DAILY MAXIMUM OF 120 MG. * Trial of tizanidine 1 mg at HS starting 10/01/2018. It has helped her sleep but unclear if it has helped spasticity. Increased to 2 mg at HS starting 2018. Reports improvement in right hand/forearm neuropathic symptoms, and she slept better. No change in episodes of extensor spasm of the spine and legs, which can happen with movement after prolonged immobility such as when repositioning in bed at night. - Scheduled for Botox on 10/12. She will need to reschedule. 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 CURRENTLY ASYMPTOMATIC Symptoms relieved with Tums. Vitals were stable. * Had indeterminate troponins during hospitalization. 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 Echocardiogram was normal but for mild mitral and tricuspid regurgitation. * Monitor were for recurrent symptoms. Will have low threshold for EKG and troponins versus transfer to emergency department. # Edema. She reports history of venous insufficiency in the left leg. She reports hydrochlorothiazide is prescribed for edema rather than for blood pressure. * Blood pressure is too low for hydrochlorothiazide, and it may not be the optimal treatment for edema due to venous insufficiency. * Continue compression stockings. Edema has responded well. * Weight and edema have been stable. Change weights from daily to every Friday. #Multiple Sclerosis * Usually receives PEG-interferon q2 weeks. Last due on 09/26. ID said OK to continue. * Patient reports she was interested in discontinuing. She says she typically has 3 days of weakness after an injection. She reports that her primary neurologist, Dr. Rosio Bach in [place], advised her to continue. Will defer to Dr. Bach for decision when patient follows up after discharge. # Dysuria, 10/03/2018. NO COMPLAINTS OF DYSURIA MORNING OF 10/14 * Positive urinalysis, 10/03/2018, with white blood cells and leukocyte esterase. She denies symptoms currently, as of 10/04/2018. * Culture result 10/05/2018 with 8000 CFU yeast. No treatment indicated # Rash on right upper back. * PCR test negative for zoster. * Nursing using house skin lotion. # Sepsis 2/2 E.coli Bactermia/UTI - Finishing her Oral ABX cipro on 09/30 as per ID recs. - Continue to monitor for S/Sx of infection # Thrombocytopenia - Resolved as per labs on 09/27 and 325. # Transaminitis - Resolving per labs on 09/27 still slightly elevated ALT and AlkPhos # Anemia - Slightly drop on labs on 09/27. Improving on 09/28/2018. - No evidence of bleeding on exam will monitor now that starting enoxaparin. #History of LE DVT - Was on apixaban in 2016 was kept on ASA as prophylactic after that per patient - Will hold ASA and start on enoxaparin dosing. - Plan to resume ASA and d/c enoxaparin upon discharge. 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 #Hyperlipidemia - Continue on Statin DISPOSITION: Attended staffing, 15 min, 10/08/2018. Discussed with case management, PT, OT, nursing, dietitian. works in [place] and is gone 12 hr a day. May need as much as 2-3 weeks of inpatient rehabilitation to achieve sufficient independence to return home. Good progress in her 1st week. Weekly reassessment regarding length of stay. Goal sufficient independence to return home. 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 Tentative discharge date is 10/19/2018. # Follow Up * PCP * Rosio Bach, Neurology (in [facility])? Intends to establish with new neurologist at [facility]. * Consider evaluation by Urology regarding bladder function. 10/14/18 10:41 Subjective: She reports that she is continent during the day but incontinent and night and is wearing an external catheter for this. She reports that she slept well last night. She is still having some right forearm and right leg pain along with extensor spasms which has been worsening over the past week or so because she missed Botox injections in the right forearm and leg. She reports that these are usually administered every 3 months by her neurologist in [place]. She continues to experience weakness of the right hip flexors and right ankle dorsiflexors. Objective: Vital Signs Temp Pulse Resp BP Pulse Ox 37.0 C 66 16 102/52 L 91 L 10/14/18 05:10 10/14/18 05:10 10/14/18 05:10 10/14/18 05:10 10/14/18 05:10 Microbiology 10/03/18 15:13 Urine Culture - Final Urine,Clean Catch Yeast Species Laboratory Results 09/28/18 07:00 09/27/18 06:00 10/13/18 10/14/18 10/15/18 05:59 05:59 05:59 Intake Total 950 1480 240 Output Total 1550 2300 100 Balance -600 -820 140 Physical Exam - Physical Exam General Appearance: WD/WN, alert, no apparent distress Respiratory: chest non-tender, lungs clear, normal breath sounds Cardiac/Chest: No edema Abdomen: normal bowel sounds, non-tender, soft Skin: warm/dry Extremities: other (Right AFO in place.), No swelling, No Jared's sign Neuro/Psych: No no motor/sensory deficits (Right hip flexors 3+/5, 2/5 right ankle dorsiflexors. Slight increased right biceps tone with passive range of motion. No right or left ankle clonus) ICD10 Worksheet Patient Problems: Problems Problem Status Onset Hypotension Acute Sepsis Acute Septic shock Acute Urinary tract infection Acute
[2018-10-14] MEDS: BACLOFEN 20 MG TAB PO SCH (12:20)
[2018-10-14] MEDS: ATORVASTATIN CALCIUM 20 MG TAB PO SCH (20:38)
[2018-10-14] MEDS: tiZANidine HCL 2 MG TAB PO SCH (20:38)
[2018-10-14] MEDS: LIDOCAINE 4% 15 GM CREAM TP PRN (22:10)
[2018-10-14] MEDS: DICLOFENAC SODIUM 1% 100 GM GEL TP PRN (22:11)
[2018-10-15] MEDS: CALCIUM CARBONATE 500 MG CHEWABLE TAB PO PRN (04:40)
[2018-10-15] MEDS: BACLOFEN 10 MG TAB PO SCH ×2 (06:29→18:13)
[2018-10-15] MEDS: SENNOSIDES 1 TAB PO SCH ×2 (08:33→20:59)
[2018-10-15] MEDS: ENOXAPARIN 40 MG/0.4 ML SYR SC SCH (08:33)
[2018-10-15] MEDS: MULTIVITAMINS 1 EACH TAB PO SCH (08:33)
[2018-10-15] MEDS: TAMSULOSIN HCL 0.4 MG CAP PO SCH (08:33)
[2018-10-15] MEDS: CHOLECALCIFEROL VIT D3 2,000 UNITS TAB/CAP PO SCH (08:33)
--- NOTE | 2018-10-15 13:12 | SOAPPROG ---
SOAP Progress Note Assessment/Plan: Assessment: # Debility 2/2 severe sepsis and exacerbation of weakness from her MS, hospitalized 09/20/2018. * Per rehab staff team meeting today she has difficulty with transfers but is able to ambulate short distance with the FWW. Most recent FIM SCORE 82. Initial functional independence measure his 49 on 09/28/2018, improved to 59 as of 10/02/2018, and to 69 as of 10/08/2018. Moderate assist for bed mobility. Transfers with contact guard to minimal assist. Ambulated 5 ft with minimal assist of 2 in parallel bars. Can self propel a wheelchair 165 ft with standby assist. Does grooming and hygiene seated with setup. Upper body dressing requires minimal assist to standby assist. Lower body dressing requires maximal assist standing at the rail with assistance to hike her pants and get clothing over her feet. Toileting requires maximal assist for hygiene and clothing management. * Continue PT and OT will optimize her ADLs, transfers, mobility and stair negotiation. # Neurogenic bladder. Has retention with postvoid residuals in the mid 200s as well as overactivity, and no sensation of bladder fullness. WILL ASK UROLOGY TO CONSULT FOR POSSIBLE URODYNAMIC STUDIES TO ADDRESS RETENTION AND OVERACTIVITY WHICH MAY BE AMENABLE TO MEDICATION. PATIENT IS AGREEABLE TO THIS. EXPLAINED TO PATIENT TODAY UNSURE WHETHER THIS CAN BE DONE ON CAMPUS OR AN OUTPATIENT. RECOMMENDED THAT SHE GO AHEAD AND ORDER HER EXTERNAL URINARY CATHETER FOR HOME USE * Discontinued hydrochlorothiazide. * Unlikely to be able to self catheterization due to issues with seated balance and reduced dexterity with her hands. * Initiated tamsulosin 09/30/2018. Has improved residuals with range of 65 to 170; previously had been mid 200s. * Continue rehabilitation bladder program. * Will consider nighttime dose of Ditropan to see if this improves nocturnal incontinence # Spasticity. DISCUSSED SPASTICITY WITH REHAB TEAM TODAY DURING REHAB ROUNDS. CONSENSUS FROM PT AND OT IS THAT PATIENT DOES NOT HAVE ONGOING SPASTICITY THAT INTERFERES WITH TRANSFERS OR AMBULATION. SHE IS PLANNING TO SEE A NEW NEUROLOGIST IN THIS FACILITY ON 12/08/2018 FOR POSSIBLE BOTOX INJECTIONS IN THE RIGHT FOREARM AND LEG. HOWEVER, BY EXAM SHE DOES NOT HAVE ENOUGH SPASTICITY IN THE RIGHT UPPER OR LOWER EXTREMITY TO WARRANT THIS, IN MY OPINION Takes baclofen and gets botox through neurology as outpt * Used baclofen PRN at home, 80-100 mg each day typically. * Scheduled baclofen 40 mg in AM before arising, 20 mg before lunch, and 40 mg before dinner, starting afternoon of 09/28/2018. DISCUSSED WITH PATIENT THAT IF INCREASED TONE AND/OR SPASTICITY IN THE RIGHT FOREARM AND RIGHT LEG CONTINUE TO BE AN ISSUE THEN WE CAN ALWAYS INCREASE THE BACLOFEN UP TO A TOTAL DAILY MAXIMUM OF 120 MG. * Trial of tizanidine 1 mg at HS starting 10/01/2018. It has helped her sleep but unclear if it has helped spasticity. Increased to 2 mg at HS starting 2018. Reports improvement in right hand/forearm neuropathic symptoms, and she slept better. No change in episodes of extensor spasm of the spine and legs, which can happen with movement after prolonged immobility such as when repositioning in bed at night. - Scheduled for Botox on 10/12. She will need to reschedule. 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 CURRENTLY ASYMPTOMATIC Symptoms relieved with Tums. Vitals were stable. * Had indeterminate troponins during hospitalization. 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 Echocardiogram was normal but for mild mitral and tricuspid regurgitation. * Monitor were for recurrent symptoms. Will have low threshold for EKG and troponins versus transfer to emergency department. # Edema. She reports history of venous insufficiency in the left leg. She reports hydrochlorothiazide is prescribed for edema rather than for blood pressure. * Blood pressure is too low for hydrochlorothiazide, and it may not be the optimal treatment for edema due to venous insufficiency. * Continue compression stockings. Edema has responded well. * Weight and edema have been stable. Change weights from daily to every Friday. #Multiple Sclerosis * Usually receives PEG-interferon q2 weeks. Last due on 09/26. ID said OK to continue. * Patient reports she was interested in discontinuing. She says she typically has 3 days of weakness after an injection. She reports that her primary neurologist, Dr. Rosio Bach in [place], advised her to continue. Will defer to Dr. Bach for decision when patient follows up after discharge. # Dysuria, 10/03/2018. NO COMPLAINTS OF DYSURIA MORNING OF 10/14 OR 10/15. * Positive urinalysis, 10/03/2018, with white blood cells and leukocyte esterase. She denies symptoms currently, as of 10/04/2018. * Culture result 10/05/2018 with 8000 CFU yeast. No treatment indicated # Rash on right upper back. * PCR test negative for zoster. * Nursing using house skin lotion. # Sepsis 2/2 E.coli Bactermia/UTI - Finishing her Oral ABX cipro on 09/30 as per ID recs. - Continue to monitor for S/Sx of infection # Thrombocytopenia - Resolved as per labs on 09/27 and 325. # Transaminitis - Resolving per labs on 09/27 still slightly elevated ALT and AlkPhos # Anemia - Slightly drop on labs on 09/27. Improving on 09/28/2018. - No evidence of bleeding on exam will monitor now that starting enoxaparin. #History of LE DVT - Was on apixaban in 2016 was kept on ASA as prophylactic after that per patient - Will hold ASA and start on enoxaparin dosing. - Plan to resume ASA and d/c enoxaparin upon discharge. 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 #Hyperlipidemia - Continue on Statin DISPOSITION: PATIENT WAS STAFFED AND REHAB ROUNDS THIS MORNING. SHE CONTINUES TO MAKE SIGNIFICANT PROGRESS WITH MOST RECENT FIM IMPROVING FROM 69-82. PATIENT WOULD BENEFIT FROM AN ADDITIONAL 2 WEEKS OF INTEGRATED INPATIENT REHAB SERVICES WHICH IS THE CONSENSUS OF THE REHAB TEAM. # Follow Up * PCP * Rosio Bach, Neurology (in [facility])? Intends to establish with new neurologist at [facility]. * Consider evaluation by Urology regarding bladder function. 10/15/18 12:59 Subjective: No complaints this morning. She reports that her right forearm and right leg pain have stabilized. She denies active spasticity. She has been wearing the external catheter at night and reports this is working well for her. She had a total of 1 whole 1000 cc output last evening as reported by nursing staff. Objective: Vital Signs Temp Pulse Resp BP Pulse Ox 36.8 C 69 16 98/51 L 91 L 10/15/18 06:36 10/15/18 06:36 10/15/18 06:36 10/15/18 06:36 10/15/18 06:36 Laboratory Results 09/28/18 07:00 09/27/18 06:00 10/14/18 10/15/18 10/16/18 05:59 05:59 05:59 Intake Total 1480 1070 480 Output Total 2300 700 300 Balance -820 370 180 Physical Exam - Physical Exam General Appearance: WD/WN, alert, no apparent distress Respiratory: lungs clear, normal breath sounds Cardiac/Chest: regular rate, rhythm, No edema Abdomen: normal bowel sounds, non-tender, soft Neuro/Psych: motor weakness (Significant lower extremity weakness she can only perform seated hip flexion with active assist using a thigh strap. 2+/5 right quadriceps, 3/5 left quadriceps. Right AFO in place. Lacks antigravity strength of the right tibialis anterior.) ICD10 Worksheet Patient Problems: Problems Problem Status Onset Hypotension Acute Sepsis Acute Septic shock Acute Urinary tract infection Acute
[2018-10-15] MEDS: BACLOFEN 20 MG TAB PO SCH (13:21)
--- NOTE | 2018-10-15 17:53 | SOAPPROG ---
SOAP Progress Note Assessment/Plan: Assessment: 1. Recent E. coli bacteremia of urinary tract source. 2. Several-month history of nocturnal urge incontinence & daytime urgency. Plan: 1. Renal ultrasound while in-house. 2. Arrange for outpatient urodynamics after being discharged from rehab. Please see dictated consult note (#[id number]). Objective: Vital Signs Temp Pulse Resp BP Pulse Ox 36.8 C 69 16 98/51 L 91 L 10/15/18 06:36 10/15/18 06:36 10/15/18 06:36 10/15/18 06:36 10/15/18 06:36 Laboratory Results 09/28/18 07:00 09/27/18 06:00 10/14/18 10/15/18 10/16/18 05:59 05:59 05:59 Intake Total 1480 1070 480 Output Total 2300 700 900 Balance -820 370 -420 ICD10 Worksheet Patient Problems: Problems Problem Status Onset Hypotension Acute Sepsis Acute Septic shock Acute Urinary tract infection Acute
--- NOTE | 2018-10-15 18:34 | GCON ---
[f rep st] CONSULTATION UROLOGY CONSULTATION PHYSICIAN REQUESTING CONSULTATION: iRck Ramirez M.D. REASON FOR CONSULTATION: Urinary incontinence and recent urosepsis. HISTORY: This 68-year-old woman, diagnosed with multiple sclerosis almost 40 years ago, was admitted to [facility] on September 20 and ultimately found to have E coli urosepsis and bacteremia. After undergoing acute care in the hospital, she was subsequently transferred to the rehab floor for further therapy. In terms of her urinary tract functioning, the patient has a longstanding history of occasional urinary urgency but typically does not have any daytime urinary incontinence. More recently, over the last several months, she has had issues with nocturia several times per night that has been associated with nocturnal urge incontinence. As a result, she started using diapers during the night more recently. She also recently has noticed some delayed onset of daytime urination. However, she denies any history of prior urinary tract infections, dysuria, gross hematuria, but has not seen a urologist in many years. She has never undergone any kind of a urologic urinary tract workup. She has also been using a female external catheter since coming to the rehab facility and intends to use this at home as well. PAST MEDICAL HISTORY: Multiple sclerosis, (as noted above), recent E coli bacteremia and sepsis, DVT in 2016, high cholesterol. PAST SURGICAL HISTORY: None of significance. CURRENT MEDICATIONS: Includes Lipitor 20 mg daily, Senokot 1 tablet twice daily , Lovenox 40 mg subcu daily, baclofen 20 mg once daily and 40 mg twice daily, Flomax 0.4 mg daily, Zanaflex 2 mg at bedtime, calcium carbonate 500 mg 3 times daily p.r.n., MiraLAX 17 g daily p.r.n. MEDICAL ALLERGIES: None known. FAMILY HISTORY: Not contributory. SOCIAL HISTORY: The patient and her live in the [place] area. He has a full-time job in [place] which requires him to leave home early in the morning. 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 She denies use of tobacco products. She has 2 daughters who do not live in this area. REVIEW OF SYSTEMS: She has been previously utilizing a walker for ambulation at home. Since beginning rehab, she has been utilizing primarily a wheelchair but is hoping to get back to her pre-bacteremia condition from this standpoint. She also has a longstanding history of tremors in her right hand for which she has received Botox injections in the past through a neurologist she has been seeing in [place]. She has also had some slight issues with constipation more recently. PHYSICAL EXAM: GENERAL: Pleasant, well-developed, well-nourished white female currently in a wheelchair. She is in no acute distress. VITAL SIGNS: Blood pressure 98/51, heart rate 69, respiratory rate 16, oxygen saturation 91% on room air, temperature 36.8 Celsius. Height 162 cm, weight 65 kg, BMI 24.5. HEENT: Normocephalic, atraumatic. NECK : Normal appearance. HEART: Regular rate. CHEST: Unlabored respiratory pattern. ABDOMEN: Soft and scaphoid. NEUROLOGIC: She is alert and oriented. She answers all questions appropriately with normal mood and affect. PERTINENT LABORATORY: 09/27/2018 Chemistry panel is normal. 09/20/2018 Urine and blood cultures were positive for E coli. RADIOGRAPHIC STUDIES: None of pertinence. IMPRESSION: 1. Recent E coli bacteremia of urinary tract source. She appears to be recovering nicely from this from an infectious disease standpoint. 2. Nocturnal urge incontinence, with daytime urgency, in a patient with history of long-standing multiple sclerosis. She is overdue for a comprehensive urinary tract evaluation. We discussed the typical and progressive changes of the urinary tract, and more specifically in regards to bladder functioning, that is seen with multiple sclerosis. This typically includes urgency with associated urge incontinence that eventually progresses to a myogenic bladder and urinary retention. We also discussed there are obviously some exceptions to this general behavior. PLAN: 1. I will have her undergo renal sonography while she is in rehab, to further assess her kidneys and ensure no presence of hydronephrosis. 2. Arrangements will be made for her to undergo outpatient office urodynamics, once she is discharged from rehab, then follow up with me thereafter to make further assessments regarding her urinary tract functioning. 3. I would hold off on starting Ditropan or any other anticholinergic until her urinary tract workup has been completed. Thank you for this consultation. /[id number]/MODL MTDD
[2018-10-15] MEDS: tiZANidine HCL 2 MG TAB PO SCH (20:59)
[2018-10-15] MEDS: ATORVASTATIN CALCIUM 20 MG TAB PO SCH (20:59)
[2018-10-15] MEDS: LIDOCAINE 4% 15 GM CREAM TP PRN (22:24)
[2018-10-15] MEDS: DICLOFENAC SODIUM 1% 100 GM GEL TP PRN (22:25)
[2018-10-16] MEDS: BACLOFEN 10 MG TAB PO SCH ×2 (06:05→17:40)
[2018-10-16] MEDS: ENOXAPARIN 40 MG/0.4 ML SYR SC SCH (07:56)
[2018-10-16] MEDS: CHOLECALCIFEROL VIT D3 2,000 UNITS TAB/CAP PO SCH (07:56)
[2018-10-16] MEDS: SENNOSIDES 1 TAB PO SCH ×2 (07:56→21:38)
[2018-10-16] MEDS: MULTIVITAMINS 1 EACH TAB PO SCH (07:56)
[2018-10-16] MEDS: TAMSULOSIN HCL 0.4 MG CAP PO SCH (07:56)
[2018-10-16] MEDS: BACLOFEN 20 MG TAB PO SCH (11:36)
--- NOTE | 2018-10-16 15:09 | SOAPPROG ---
SOAP Progress Note Assessment/Plan: Assessment: # Debility 2/2 severe sepsis and exacerbation of weakness from her MS, hospitalized 09/20/2018. She has a quite dysfunctional gait pattern where she is essentially dragging the right lower extremity. She is due to be fitted with a new right AFO early next week. She would benefit from continued strengthening of the iliopsoas, gluteus medius, gluteus gildardo, hamstrings and quadriceps. The realistic goal should be independent transfers and ambulating 25 ft using FWW. Most recent FIM SCORE 82. Initial functional independence measure his 49 on 09/28/2018, improved to 59 as of 10/02/2018, and to 69 as of 10/08/2018. Moderate assist for bed mobility. Transfers with contact guard to minimal assist. Ambulated 5 ft with minimal assist of 2 in parallel bars. Can self propel a wheelchair 165 ft with standby assist. Does grooming and hygiene seated with setup. Upper body dressing requires minimal assist to standby assist. Lower body dressing requires maximal assist standing at the rail with assistance to hike her pants and get clothing over her feet. Toileting requires maximal assist for hygiene and clothing management. * Continue PT and OT will optimize her ADLs, transfers, mobility and stair negotiation. # Neurogenic bladder. Dr. Loaiza consultation read and appreciated. She will have renal ultrasound pr this consultation. She will have urodynamics as an outpatient. Will not start Ditropan per discussion with Dr. Loaiza # Spasticity. Currently her spasticity is not interfering with her transfers or her gait. Will continue baclofen at its current dosage of 40/20/40. In my opinion Botox injections to the right forearm and leg are not necessary at this time. * Used baclofen PRN at home, 80-100 mg each day typically. * Scheduled baclofen 40 mg in AM before arising, 20 mg before lunch, and 40 mg before dinner, starting afternoon of 09/28/2018. DISCUSSED WITH PATIENT THAT IF INCREASED TONE AND/OR SPASTICITY IN THE RIGHT FOREARM AND RIGHT LEG CONTINUE TO BE AN ISSUE THEN WE CAN ALWAYS INCREASE THE BACLOFEN UP TO A TOTAL DAILY MAXIMUM OF 120 MG. * Trial of tizanidine 1 mg at HS starting 10/01/2018. It has helped her sleep but unclear if it has helped spasticity. Increased to 2 mg at HS starting 2018. Reports improvement in right hand/forearm neuropathic symptoms, and she slept better. No change in episodes of extensor spasm of the spine and legs, which can happen with movement after prolonged immobility such as when repositioning in bed at night. - Scheduled for Botox on 10/12. She will need to reschedule. 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 CURRENTLY ASYMPTOMATIC Symptoms relieved with Tums. Vitals were stable. * Had indeterminate troponins during hospitalization. EKGs x2 were consistent with possible old inferior wall [place] with Q-waves in AVF. Echocardiogram was normal but for mild mitral and tricuspid regurgitation. * Monitor were for recurrent symptoms. Will have low threshold for EKG and troponins versus transfer to emergency department. # Edema. Stable. #Multiple Sclerosis * Usually receives PEG-interferon q2 weeks. Last due on 09/26. ID said OK to continue. * Patient reports she was interested in discontinuing. She says she typically has 3 days of weakness after an injection. She reports that her primary neurologist, Dr. Rosio Bach in [place], advised her to continue. Will defer to Dr. Bach for decision when patient follows up after discharge. # Dysuria, asymptomatic # Thrombocytopenia - Resolved as per labs on 09/27 and 325. # Transaminitis - Resolving per labs on 09/27 still slightly elevated ALT and AlkPhos # Anemia - Slightly drop on labs on 09/27. Improving on 09/28/2018. - No evidence of bleeding on exam will monitor now that starting enoxaparin. #History of LE DVT - Was on apixaban in 2016 was kept on ASA as prophylactic after that per patient - continues on enoxaparin - Plan to resume ASA and d/c enoxaparin upon discharge. Per literature review , there is no indication for [facility] anticoagulation in multiple sclerosis. #Hyperlipidemia - Continue on Statin # Follow Up * PCP * Rosio Bach, Neurology (in [facility])? Intends to establish with new neurologist at [facility]. * Consider evaluation by Urology regarding bladder function. 10/16/18 15:02 10/16/18 15:09 Subjective: No new complaints. 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 She does not report new onset weakness or sensory disturbance since her admission on to the rehab floor. She has had a consultation with the urologist yesterday went well and she was appreciative of this. Objective: Vital Signs Temp Pulse Resp BP Pulse Ox 36.8 C 64 16 134/64 H 93 10/16/18 06:22 10/16/18 06:22 10/16/18 06:22 10/16/18 06:22 10/16/18 06:22 Laboratory Results 09/28/18 07:00 09/27/18 06:00 10/15/18 10/16/18 10/17/18 05:59 05:59 05:59 Intake Total 1070 830 200 Output Total 700 1850 Balance 370 -1020 200 Physical Exam - Physical Exam General Appearance: WD/WN, alert, no apparent distress Respiratory: lungs clear, normal breath sounds Cardiac/Chest: No edema Abdomen: normal bowel sounds, non-tender, soft Extremities: No swelling, No Jared's sign Neuro/Psych: motor weakness (Gait evaluation reveals that she has very little if any right active hip flexion so that when she walks she is essentially dragging the right lower extremity. She she does not have as pronounced weakness of the left hip flexors. She has decreased knee extension bilaterally. No knee buckling.) ICD10 Worksheet Patient Problems: Problems Problem Status Onset Hypotension Acute Sepsis Acute Septic shock Acute Urinary tract infection Acute
[2018-10-16] MEDS: ACETAMINOPHEN 325 MG TAB PO PRN (21:39)
[2018-10-16] MEDS: tiZANidine HCL 2 MG TAB PO SCH (21:39)
[2018-10-16] MEDS: ATORVASTATIN CALCIUM 20 MG TAB PO SCH (21:39)
[2018-10-16] MEDS: MELATONIN 3 MG TAB PO PRN (21:39)
[2018-10-16] MEDS: LIDOCAINE 4% 15 GM CREAM TP PRN (21:41)
[2018-10-16] MEDS: DICLOFENAC SODIUM 1% 100 GM GEL TP PRN (21:42)
[2018-10-17] MEDS: BACLOFEN 10 MG TAB PO SCH ×2 (05:45→18:18)
[2018-10-17] MEDS: CHOLECALCIFEROL VIT D3 2,000 UNITS TAB/CAP PO SCH (08:39)
[2018-10-17] MEDS: ENOXAPARIN 40 MG/0.4 ML SYR SC SCH (08:39)
[2018-10-17] MEDS: MULTIVITAMINS 1 EACH TAB PO SCH (08:40)
[2018-10-17] MEDS: SENNOSIDES 1 TAB PO SCH ×2 (08:40→21:28)
[2018-10-17] MEDS: TAMSULOSIN HCL 0.4 MG CAP PO SCH (08:40)
--- NOTE | 2018-10-17 11:17 | SOAPPROG ---
SOAP Progress Note Assessment/Plan: Assessment: Debility- secondary to exacerbation of multiple sclerosis secondary to UTI sepsis. She has a quite dysfunctional gait pattern where she is essentially dragging the right lower extremity. She is due to be fitted with a new right AFO early next week. She would benefit from continued strengthening of the iliopsoas, gluteus medius, gluteus gildardo, hamstrings and quadriceps. The realistic goal should be independent transfers and ambulating 25 ft using FWW. Most recent FIM SCORE 82. Initial functional independence measure his 49 on , improved to 59 as of 10/02/2018, and to 69 as of 10/08/2018. Moderate assist for bed mobility. Transfers with contact guard to minimal assist. Ambulated 5 ft with minimal assist of 2 in parallel bars. Can self propel a wheelchair 165 ft with standby assist. Does grooming and hygiene seated with setup. Upper body dressing requires minimal assist to standby assist. Lower body dressing requires maximal assist standing at the rail with assistance to hike her pants and get clothing over her feet. Toileting requires maximal assist for hygiene and clothing management. Continue PT and OT will optimize her ADLs, transfers, mobility and stair negotiation. Shoulder pain-left greater than right. She was just fitted with a new wheelchair and her shoulder pain is possibly due to incorrect seat height or perhaps she is reaching to far backwards when propelling her wheelchair forward. I discussed this with her occupational therapist that she may need wheelchair adjustment to correct the seat height. Also discussed with occupational therapist that her external shoulder rotators are tight and may be a source of her shoulder pain. Consider possible modification of Thera-Band exercises although she does need an aggressive but judicious shoulder range of motion and strengthening program. Neurogenic bladder. Dr. Loaiza consultation read and appreciated. She will have renal ultrasound pr this consultation. She will have urodynamics as an outpatient. Will not start Ditropan per discussion with Dr. Loaiza Spasticity. Unchanged from previous exam. Currently her spasticity is not interfering with her transfers or her gait. Will continue baclofen at its current dosage of 40/20/40. In my opinion Botox injections to the right forearm and leg are not necessary at this time. * Used baclofen PRN at home, 80-100 mg each day typically. * Scheduled baclofen 40 mg in AM before arising, 20 mg before lunch, and 40 mg before dinner, starting afternoon of 09/28/2018. DISCUSSED WITH PATIENT THAT IF INCREASED TONE AND/OR SPASTICITY IN THE RIGHT FOREARM AND RIGHT LEG CONTINUE TO BE AN ISSUE THEN WE CAN ALWAYS INCREASE THE BACLOFEN UP TO A TOTAL DAILY MAXIMUM OF 120 MG. * Trial of tizanidine 1 mg at HS starting 10/01/2018. It has helped her sleep but unclear if it has helped spasticity. Increased to 2 mg at HS starting 2018. Reports improvement in right hand/forearm neuropathic symptoms, and she slept better. No change in episodes of extensor spasm of the spine and legs, which can happen with movement after prolonged immobility such as when repositioning in bed at night. - Scheduled for Botox on 10/12. She will need to reschedule. 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 CURRENTLY ASYMPTOMATIC Symptoms relieved with Tums. Vitals were stable. * Had indeterminate troponins during hospitalization. EKGs x2 were consistent with possible old inferior wall [place] with Q-waves in AVF. Echocardiogram was normal but for mild mitral and tricuspid regurgitation. * Monitor were for recurrent symptoms. Will have low threshold for EKG and troponins versus transfer to emergency department. Edema. Stable. Patient reminded to elevate feet above level of heart for 20 min several times a day to reduce pedal edema Multiple Sclerosis * Usually receives PEG-interferon q2 weeks. Last due on 09/26. ID said OK to continue. * Patient reports she was interested in discontinuing. She says she typically has 3 days of weakness after an injection. She reports that her primary neurologist, Dr. Rosio Bach in [place], advised her to continue. Will defer to Dr. Bach for decision when patient follows up after discharge. Dysuria, asymptomatic Thrombocytopenia Resolved as per labs on 09/27 and 325. Transaminitis Resolving per labs on 09/27 still slightly elevated ALT and AlkPhos Anemia Slightly drop on labs on 09/27. Improving on 09/28/2018. No evidence of bleeding on exam will monitor now that starting enoxaparin. History of LE DVT -continues on enoxaparin.Plan to resume ASA and d/c enoxaparin upon discharge. Per literature review, there is no indication for [facility] anticoagulation in multiple sclerosis. Hyperlipidemia -Continue on Statin Follow Up * PCP * Rosio Bach, Neurology (in [facility])? Intends to establish with new neurologist at [facility]. * Consider evaluation by Urology regarding bladder function. 10/17/18 11:12 Subjective: She complains of some bilateral shoulder pain. She is not sure if it is due to the new wheelchair, the Thera-Band upper extremity exercises she has been doing or combination of both. She reports constant dull aching discomfort in the left subacromial region with similar symptoms on the right although not as severe. She does not report neck pain. She does not report left upper extremity radicular symptoms. She does report that she is right handed but tends to use the left hand due to right upper extremity pain and sensory disturbance. Objective: Vital Signs Temp Pulse Resp BP Pulse Ox 36.6 C 67 16 110/63 90 L 10/17/18 05:44 10/17/18 05:44 10/17/18 05:44 10/17/18 05:44 10/17/18 05:44 Laboratory Results 09/28/18 07:00 09/27/18 06:00 10/16/18 10/17/18 10/18/18 05:59 05:59 05:59 Intake Total 830 850 Output Total 1850 1250 Balance -1020 -400 Physical Exam - Physical Exam General Appearance: WD/WN, alert, no apparent distress Respiratory: lungs clear, normal breath sounds Abdomen: non-tender, soft Extremities: calf tenderness, swelling Neuro/Psych: alert, normal mood/affect, oriented x 3, motor weakness (No change in motor exam compared to previous exams. Negative left drop-arm test. Negative left shoulder impingement test. She has tenderness in the left lateral subacromial region. She has some tightness of the external shoulder rotators tested with shoulder abducted 90.) ICD10 Worksheet Patient Problems: Problems Problem Status Onset Hypotension Acute Sepsis Acute Septic shock Acute Urinary tract infection Acute
[2018-10-17] MEDS: BACLOFEN 20 MG TAB PO SCH (12:31)
[2018-10-17] MEDS: tiZANidine HCL 2 MG TAB PO SCH (21:28)
[2018-10-17] MEDS: ATORVASTATIN CALCIUM 20 MG TAB PO SCH (21:28)
[2018-10-17] MEDS: LIDOCAINE 4% 15 GM CREAM TP PRN (21:34)
[2018-10-18] MEDS: BACLOFEN 10 MG TAB PO SCH ×2 (05:22→18:03)
[2018-10-18] MEDS: SENNOSIDES 1 TAB PO SCH ×2 (08:30→21:31)
[2018-10-18] MEDS: CHOLECALCIFEROL VIT D3 2,000 UNITS TAB/CAP PO SCH (08:30)
[2018-10-18] MEDS: MULTIVITAMINS 1 EACH TAB PO SCH (08:30)
[2018-10-18] MEDS: ENOXAPARIN 40 MG/0.4 ML SYR SC SCH (08:30)
[2018-10-18] MEDS: TAMSULOSIN HCL 0.4 MG CAP PO SCH (08:31)
--- NOTE | 2018-10-18 10:55 | SOAPPROG ---
SOAP Progress Note Assessment/Plan: Assessment: Debility- Secondary to exacerbation of multiple sclerosis secondary to UTI sepsis. She has a quite dysfunctional gait pattern where she is essentially dragging the right lower extremity. SHE RECEIVED A NEW DEMO MODEL OF A RIGHT AFO. SHE IS HAVING FABRICATION OF A NEW AFO NEXT WEEK. HER GAIT IS QUITE DYSFUNCTIONAL SECONDARY TO PRONOUNCED WEAKNESS OF THE HIP FLEXORS MOST PRONOUNCED ON THE RIGHT. She is due to be fitted with a new right AFO early next week. She would benefit from continued strengthening of the iliopsoas, gluteus medius, gluteus gildardo, hamstrings and quadriceps. The realistic goal should be independent transfers and ambulating 25 ft using FWW. Most recent FIM SCORE 82. Initial functional independence measure his 49 on 09/28/2018, improved to 59 as of 10/02/2018, and to 69 as of 10/08/2018. Moderate assist for bed mobility. Transfers with contact guard to minimal assist. Ambulated 5 ft with minimal assist of 2 in parallel bars. Can self propel a wheelchair 165 ft with standby assist. Does grooming and hygiene seated with setup. Upper body dressing requires minimal assist to standby assist. Lower body dressing requires maximal assist standing at the rail with assistance to hike her pants and get clothing over her feet. Toileting requires maximal assist for hygiene and clothing management. Continue PT and OT will optimize her ADLs, transfers, mobility and stair negotiation. GROUNDS PASS TODAY IN WHEELCHAIR WITH . Shoulder pain-left greater than right. IMPROVED FOLLOWING SOFT TISSUE MASSAGE YESTERDAY BY OCCUPATIONAL THERAPY. PHYSICAL THERAPY CHANGED OUT HER SEAT CUSHION FOR AN 18 IN CUSHION REPLACING A 20 IN CUSHION AND EDUCATED HER ON PROPER WHEELCHAIR PROPULSION TECHNIQUES. Neurogenic bladder. Dr. Loaiza consultation read and appreciated. She will have renal ultrasound pr this consultation. She will have urodynamics as an outpatient. Will not start Ditropan per discussion with Dr. Loaiza Spasticity. NO COMPLAINTS OF SPASTICITY OF THE RIGHT UPPER OR RIGHT LOWER EXTREMITY. DENIES SIGNIFICANT RIGHT UPPER OR RIGHT LOWER EXTREMITY PAIN. Currently her spasticity is not interfering with her transfers or her gait. Will continue baclofen at its current dosage of 40/20/40. In my opinion Botox injections to the right forearm and leg are not necessary at this time. * Used baclofen PRN at home, 80-100 mg each day typically. * Scheduled baclofen 40 mg in AM before arising, 20 mg before lunch, and 40 mg before dinner, starting afternoon of 09/28/2018. DISCUSSED WITH PATIENT THAT IF INCREASED TONE AND/OR SPASTICITY IN THE RIGHT FOREARM AND RIGHT LEG CONTINUE TO BE AN ISSUE THEN WE CAN ALWAYS INCREASE THE BACLOFEN UP TO A TOTAL DAILY MAXIMUM OF 120 MG. * Trial of tizanidine 1 mg at HS starting 10/01/2018. It has helped her sleep but unclear if it has helped spasticity. Increased to 2 mg at HS starting 2018. Reports improvement in right hand/forearm neuropathic symptoms, and she slept better. No change in episodes of extensor spasm of the spine and legs, which can happen with movement after prolonged immobility such as when repositioning in bed at night. Scheduled for Botox on 10/12. She will need to reschedule. 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 CURRENTLY ASYMPTOMATIC Symptoms relieved with Tums. Vitals were stable. * Had indeterminate troponins during hospitalization. EKGs x2 were consistent with possible old inferior wall [place] with Q-waves in AVF. Echocardiogram was normal but for mild mitral and tricuspid regurgitation. * Monitor were for recurrent symptoms. Will have low threshold for EKG and troponins versus transfer to emergency department. Edema. Stable. Patient reminded to elevate feet above level of heart for 20 min several times a day to reduce pedal edema Multiple Sclerosis * Usually receives PEG-interferon q2 weeks. Last due on 09/26. ID said OK to continue. * Patient reports she was interested in discontinuing. She says she typically has 3 days of weakness after an injection. She reports that her primary neurologist, Dr. Rosio Bach in [place], advised her to continue. Will defer to Dr. Bach for decision when patient follows up after discharge. Dysuria, asymptomatic. SHE WILL HAVE OUTPATIENT URODYNAMIC STUDIES. UROLOGY CONSULT APPRECIATED. Thrombocytopenia Resolved as per labs on 09/27 and 325. Transaminitis Resolving per labs on 09/27 still slightly elevated ALT and AlkPhos Anemia Slightly drop on labs on 09/27. Improving on 09/28/2018. No evidence of bleeding on exam will monitor now that starting enoxaparin. History of LE DVT -continues on enoxaparin.Plan to resume ASA and d/c enoxaparin upon discharge. Per literature review, there is no indication for nursing home anticoagulation in multiple sclerosis. Hyperlipidemia -Continue on Statin Follow Up * PCP * Rosio Bach, Neurology (in [facility])? Intends to establish with new neurologist at [facility]. * Consider evaluation by Urology regarding bladder function. 10/18/18 10:52 Subjective: She reports she slept well last night. Her left shoulder pain is improved following deep soft tissue massage yesterday. She reports her her wheelchair seat cushion was adjusted by her physical therapist and the wheel room was taped for more efficient propulsion. She denies right upper or right lower extremity pain or spasms. She received a demo version of a new right AFO which is currently being fabricated. Objective: Vital Signs Temp Pulse Resp BP Pulse Ox 36.7 C 68 16 104/59 L 90 L 10/18/18 05:15 10/18/18 05:15 10/18/18 05:15 10/18/18 05:15 10/18/18 05:15 Laboratory Results 09/28/18 07:00 09/27/18 06:00 10/17/18 10/18/18 10/19/18 05:59 05:59 05:59 Intake Total 850 1550 Output Total 1250 900 Balance -400 650 Physical Exam - Physical Exam General Appearance: WD/WN, alert, no apparent distress Neck: full range of motion, supple Respiratory: lungs clear, normal breath sounds Abdomen: normal bowel sounds, non-tender, soft Skin: normal color, other (No irritation or skin breakdown at contact points of right AFO.) Neuro/Psych: alert, normal mood/affect, motor weakness (4/5 proximal distal muscle groups both upper extremities. Lacks antigravity right hip flexors.) ICD10 Worksheet Patient Problems: Problems Problem Status Onset Hypotension Acute Sepsis Acute Septic shock Acute Urinary tract infection Acute
[2018-10-18] MEDS: BACLOFEN 20 MG TAB PO SCH (13:10)
[2018-10-18] MEDS: ATORVASTATIN CALCIUM 20 MG TAB PO SCH (21:31)
[2018-10-18] MEDS: tiZANidine HCL 2 MG TAB PO SCH (21:31)
[2018-10-18] MEDS: LIDOCAINE 4% 15 GM CREAM TP PRN (21:35)
[2018-10-18] MEDS: DICLOFENAC SODIUM 1% 100 GM GEL TP PRN (21:35)
[2018-10-19] MEDS: BACLOFEN 10 MG TAB PO SCH ×2 (06:13→18:30)
[2018-10-19] MEDS: SENNOSIDES 1 TAB PO SCH ×3 (09:09→22:13)
[2018-10-19] MEDS: CHOLECALCIFEROL VIT D3 2,000 UNITS TAB/CAP PO SCH (09:09)
[2018-10-19] MEDS: ENOXAPARIN 40 MG/0.4 ML SYR SC SCH (09:10)
[2018-10-19] MEDS: MULTIVITAMINS 1 EACH TAB PO SCH (09:10)
[2018-10-19] MEDS: TAMSULOSIN HCL 0.4 MG CAP PO SCH (09:10)
[2018-10-19] MEDS: BACLOFEN 20 MG TAB PO SCH (11:55)
--- NOTE | 2018-10-19 14:30 | SOAPPROG ---
SOAP Progress Note Assessment/Plan: Assessment: # Debility 2/2 severe sepsis and exacerbation of weakness from her MS, hospitalized 09/20/2018. * Initial functional independence measure his 49 on 09/28/2018, improved to 59 as of 10/02/2018, to 69 as of 10/08/2018 and to 82 as of 10/14/2018 and. Moderate assist for bed mobility. Transfers with contact guard to minimal assist. Ambulated 20 ft with contact guard to minimal assist with front wheeled walker. Can self propel a wheelchair 165 ft with standby assist. Does grooming and hygiene seated with setup. Upper body dressing requires minimal assist to standby assist. Lower body dressing requires moderare assist. Toileting requires standby assist. * Continue PT and OT will optimize her ADLs, transfers, mobility and stair negotiation. # Neurogenic bladder. Has retention with postvoid residuals in the mid 200s as well as overactivity, and no sensation of bladder fullness. * Discontinued hydrochlorothiazide. * Unlikely to be able to self catheterization due to issues with seated balance and reduced dexterity with her hands. * Initiated tamsulosin 09/30/2018. Has improved residuals with range of 65 to 170; previously had been mid 200s. * Continue rehabilitation bladder program. # Spasticity Takes baclofen and gets botox through neurology as outpt * Used baclofen PRN at home, 80-100 mg each day typically. * Scheduled baclofen 40 mg in AM before arising, 20 mg before lunch, and 40 mg before dinner, starting afternoon of 09/28/2018. * Trial of tizanidine 1 mg at HS starting 10/01/2018. It has helped her sleep but unclear if it has helped spasticity. Increased to 2 mg at HS starting 2018. Reports improvement in right hand/forearm neuropathic symptoms, and she slept better. No change in episodes of extensor spasm of the spine and legs, which can happen with movement after prolonged immobility such as when repositioning in bed at night. - Scheduled for Botox on 10/12. She will need to reschedule. 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 Symptoms relieved with Tums. Vitals were stable. * Had indeterminate troponins during hospitalization. EKGs x2 were consistent with possible old inferior wall [place] with Q-waves in AVF. Echocardiogram was normal but for mild mitral and tricuspid regurgitation. * Monitor were for recurrent symptoms. Will have low threshold for EKG and troponins versus transfer to emergency department. # Edema. She reports history of venous insufficiency in the left leg. She reports hydrochlorothiazide is prescribed for edema rather than for blood pressure. * Blood pressure is too low for hydrochlorothiazide, and it may not be the optimal treatment for edema due to venous insufficiency. * Continue compression stockings. Edema has responded well. * Weight and edema have been stable. Change weights from daily to every Friday. #Multiple Sclerosis * Usually receives PEG-interferon q2 weeks. Last due on 09/26. ID said OK to continue. * Patient reports she was interested in discontinuing. She says she typically has 3 days of weakness after an injection. She reports that her primary neurologist, Dr. Rosio Bach in [place], advised her to continue. Will defer to Dr. Bach for decision when patient follows up after discharge. # Dysuria, 10/03/2018. * Positive urinalysis, 10/03/2018, with white blood cells and leukocyte esterase. She denies symptoms currently, as of 10/04/2018. * Culture result 10/05/2018 with 8000 CFU yeast. No treatment indicated # Rash on right upper back. * PCR test negative for zoster. * Nursing using house skin lotion. # Sepsis 2/2 E.coli Bactermia/UTI - Finishing her Oral ABX cipro on 09/30 as per ID recs. - Continue to monitor for S/Sx of infection # Thrombocytopenia - Resolved as per labs on 09/27 and 325. # Transaminitis - Resolving per labs on 09/27 still slightly elevated ALT and AlkPhos # Anemia - Slightly drop on labs on 09/27. Improving on 09/28/2018. - No evidence of bleeding on exam will monitor now that starting enoxaparin. #History of LE DVT - Was on apixaban in 2016 was kept on ASA as prophylactic after that per patient - Will hold ASA and start on enoxaparin dosing. - Plan to resume ASA and d/c enoxaparin upon discharge. Per literature review , there is no indication for prison anticoagulation in multiple sclerosis. #Hyperlipidemia - Continue on Statin DISPOSITION: works in [place] and is gone 12 hr a day. Goal sufficient independence to return home. She may need bundle helper. Tentative discharge date is 10/30/2018. # Follow Up * PCP * Rosio Bach, Neurology (in [place])? Intends to establish with new neurologist at [facility]. * Consider evaluation by Urology regarding bladder function. 10/19/18 14:25 Subjective: No complaints. Sleeping well. Reports that she ambulated 125 ft yesterday but today has more fatigue. Extensor spasms in back are no longer happening but she still gets extensor spasms in the right leg. No cough or dyspnea, no fevers or chills. Objective: Vital Signs Temp Pulse Resp BP Pulse Ox 37.0 C 67 16 106/60 91 L 10/19/18 05:56 10/19/18 05:56 10/19/18 05:56 10/19/18 05:56 10/19/18 05:56 Laboratory Results 09/28/18 07:00 09/27/18 06:00 10/18/18 10/19/18 10/20/18 05:59 05:59 05:59 Intake Total 1550 2080 700 Output Total 900 1200 Balance 650 880 700 Physical Exam - Physical Exam General Appearance: WD/WN, alert, no apparent distress Respiratory: No respiratory distress, No accessory muscle use Skin: normal color, warm/dry Neuro/Psych: alert, normal mood/affect, oriented x 3, motor weakness ICD10 Worksheet Patient Problems: Problems Problem Status Onset Hypotension Acute Sepsis Acute Septic shock Acute Urinary tract infection Acute
[2018-10-19] MEDS: tiZANidine HCL 2 MG TAB PO SCH (22:11)
[2018-10-19] MEDS: ATORVASTATIN CALCIUM 20 MG TAB PO SCH ×2 (22:12→22:13)
[2018-10-19] MEDS: LIDOCAINE 4% 15 GM CREAM TP PRN (22:13)
[2018-10-19] MEDS: DICLOFENAC SODIUM 1% 100 GM GEL TP PRN (22:16)
[2018-10-20] MEDS: BACLOFEN 10 MG TAB PO SCH ×2 (05:58→17:39)
[2018-10-20] MEDS: CHOLECALCIFEROL VIT D3 2,000 UNITS TAB/CAP PO SCH (09:42)
[2018-10-20] MEDS: TAMSULOSIN HCL 0.4 MG CAP PO SCH (09:42)
[2018-10-20] MEDS: MULTIVITAMINS 1 EACH TAB PO SCH (09:42)
[2018-10-20] MEDS: ENOXAPARIN 40 MG/0.4 ML SYR SC SCH (09:44)
[2018-10-20] MEDS: BACLOFEN 20 MG TAB PO SCH (12:09)
--- NOTE | 2018-10-20 12:40 | SOAPPROG ---
SOAP Progress Note Assessment/Plan: Assessment: # Debility 2/2 severe sepsis and exacerbation of weakness from her MS, hospitalized 09/20/2018. * Initial functional independence measure his 49 on 09/28/2018, improved to 59 as of 10/02/2018, to 69 as of 10/08/2018 and to 82 as of 10/14/2018 and. Moderate assist for bed mobility. Transfers with contact guard to minimal assist. Ambulated 20 ft with contact guard to minimal assist with front wheeled walker. Can self propel a wheelchair 165 ft with standby assist. Does grooming and hygiene seated with setup. Upper body dressing requires minimal assist to standby assist. Lower body dressing requires moderare assist. Toileting requires standby assist. * Continue PT and OT will optimize her ADLs, transfers, mobility and stair negotiation. # Neurogenic bladder. Has retention with postvoid residuals in the mid 200s as well as overactivity, and no sensation of bladder fullness. * Discontinued hydrochlorothiazide. * Unlikely to be able to self catheterization due to issues with seated balance and reduced dexterity with her hands. * Initiated tamsulosin 09/30/2018. Has improved residuals with range of 65 to 170; previously had been mid 200s. * Continue rehabilitation bladder program. # Spasticity Takes baclofen and gets botox through neurology as outpt * Used baclofen PRN at home, 80-100 mg each day typically. * Scheduled baclofen 40 mg in AM before arising, 20 mg before lunch, and 40 mg before dinner, starting afternoon of 09/28/2018. * Trial of tizanidine 1 mg at HS starting 10/01/2018. It has helped her sleep but unclear if it has helped spasticity. Increased to 2 mg at HS starting 2018. Reports improvement in right hand/forearm neuropathic symptoms, and she slept better. No change in episodes of extensor spasm of the spine and legs, which can happen with movement after prolonged immobility such as when repositioning in bed at night. - Scheduled for Botox on 10/12. She will need to reschedule. # Dysuria, 10/03/2018. New episode, 10/20/2018. * Given history of urosepsis, will get stat CBC and UA 10/20/2018. * Positive urinalysis, 10/03/2018, with white blood cells and leukocyte esterase. She denies symptoms currently, as of 10/04/2018. * Culture result 10/05/2018 with 8000 CFU yeast. No treatment indicated #Multiple Sclerosis * Usually receives PEG-interferon q2 weeks. Last due on 09/26. ID said OK to continue. * Patient reports she was interested in discontinuing. She says she typically has 3 days of weakness after an injection. She reports that her primary neurologist, Dr. Rosio Bach in [place], advised her to continue. Will defer to Dr. Bach for decision when patient follows up after discharge. * Question of new clonus and neuropathic symptoms, 10/20/2018. Will observe for evolution. She reports she is unable to lie still for an MRI. 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 Symptoms relieved with Tums. Vitals were stable. * Had indeterminate troponins during hospitalization. EKGs x2 were consistent with possible old inferior wall [place] with Q-waves in AVF. Echocardiogram was normal but for mild mitral and tricuspid regurgitation. * Monitor were for recurrent symptoms. Will have low threshold for EKG and troponins versus transfer to emergency department. # Edema. She reports history of venous insufficiency in the left leg. She reports hydrochlorothiazide is prescribed for edema rather than for blood pressure. * Blood pressure is too low for hydrochlorothiazide, and it may not be the optimal treatment for edema due to venous insufficiency. * Continue compression stockings. Edema has responded well. * Weight and edema have been stable. Change weights from daily to every Friday. # Rash on right upper back. * PCR test negative for zoster. * Nursing using house skin lotion. # Sepsis 2/2 E.coli Bactermia/UTI - Finishing her Oral ABX cipro on 09/30 as per ID recs. - Continue to monitor for S/Sx of infection # Thrombocytopenia - Resolved as per labs on 09/27 and 325. # Transaminitis - Resolving per labs on 09/27 still slightly elevated ALT and AlkPhos # Anemia - Slightly drop on labs on 09/27. Improving on 09/28/2018. #History of LE DVT - Was on apixaban in 2016 was kept on ASA as prophylactic after that per patient - Will hold ASA and start on enoxaparin dosing. - Plan to resume ASA and d/c enoxaparin upon discharge. 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 #Hyperlipidemia - Continue on Statin DISPOSITION: works in [place] and is gone 12 hr a day. Goal sufficient independence to return home. She may need rougher helper. Tentative discharge date is 10/30/2018. # Follow Up * PCP * Rosio Bach, Neurology (in [facility])? Intends to establish with new neurologist at [facility]. * Consider evaluation by Urology regarding bladder function. 10/20/18 12:37 Subjective: Had some burning with urination. No surfaces pain, no flank pain, no at frequency. Has some pain in the left shoulder, in the trapezius, which feels like nerve pain to her. A day and half ago she reports she had deep tissue massage by OT in that area. Therapies noted clonus in her right leg today when she was being repositioned back into her wheelchair. She thinks she has improved function of the left upper extremity working with OT. Objective: Vital Signs Temp Pulse Resp BP Pulse Ox 36.6 C 69 16 112/55 L 92 10/20/18 05:57 10/20/18 05:57 10/20/18 05:57 10/20/18 05:57 10/20/18 05:57 Laboratory Results 09/28/18 07:00 09/27/18 06:00 10/19/18 10/20/18 10/21/18 05:59 05:59 05:59 Intake Total 2080 1340 480 Output Total 1200 1000 Balance 880 340 480 Physical Exam - Physical Exam General Appearance: WD/WN, alert, no apparent distress Respiratory: normal breath sounds, No crackles, No rhonchi, No wheezing Cardiac/Chest: regular rate, rhythm, edema (Trace right lower extremity, hand on left lower extremity.), No diastolic murmur, No systolic murmur Skin: normal color, warm/dry Neuro/Psych: alert, normal mood/affect, oriented x 3 ICD10 Worksheet Patient Problems: Problems Problem Status Onset Hypotension Acute Sepsis Acute Septic shock Acute Urinary tract infection Acute
[2018-10-20 13:06] LABS: PLATELET COUNT 338 10^3/uL (150-400)
[2018-10-20] MEDS: LIDOCAINE 4% 15 GM CREAM TP PRN (22:05)
[2018-10-20] MEDS: MELATONIN 3 MG TAB PO PRN (22:05)
[2018-10-20] MEDS: SENNOSIDES 1 TAB PO SCH (22:05)
[2018-10-20] MEDS: ATORVASTATIN CALCIUM 20 MG TAB PO SCH (22:05)
[2018-10-20] MEDS: ACETAMINOPHEN 325 MG TAB PO PRN (22:05)
[2018-10-20] MEDS: tiZANidine HCL 2 MG TAB PO SCH (22:05)
[2018-10-20] MEDS: DICLOFENAC SODIUM 1% 100 GM GEL TP PRN (22:06)
[2018-10-21] MEDS: BACLOFEN 10 MG TAB PO SCH ×2 (06:06→17:32)
[2018-10-21] MEDS: MULTIVITAMINS 1 EACH TAB PO SCH (08:27)
[2018-10-21] MEDS: TAMSULOSIN HCL 0.4 MG CAP PO SCH (08:27)
[2018-10-21] MEDS: ENOXAPARIN 40 MG/0.4 ML SYR SC SCH (08:28)
[2018-10-21] MEDS: SENNOSIDES 1 TAB PO SCH ×2 (08:28→22:09)
[2018-10-21] MEDS: CHOLECALCIFEROL VIT D3 2,000 UNITS TAB/CAP PO SCH (08:28)
--- NOTE | 2018-10-21 11:09 | SOAPPROG ---
SOAP Progress Note Assessment/Plan: Assessment: # Debility 2/2 severe sepsis and exacerbation of weakness from her MS, hospitalized 09/20/2018. * Initial functional independence measure his 49 on 09/28/2018, improved to 59 as of 10/02/2018, to 69 as of 10/08/2018 and to 82 as of 10/14/2018, and to 90 as of 10/21/2018. Standby assist to contact guard assist/Min assist for transfers depending on level of fatigue. Ambulates 120 ft with a front wheeled walker and contact guard assist, though therapies reports she looks "scary ". Can self propel wheelchair 150 ft. Independent with toileting and toilet transfer. Does grooming and hygiene with modified independence from the wheelchair. Upper body dressing requires minimal assist, lower body dressing requires minimal to moderate assist. Shower transfer requires close standby assist and she bathes with minimal assist. * Continue PT and OT will optimize her ADLs, transfers, mobility and stair negotiation. # Neurogenic bladder. Has retention with postvoid residuals in the mid 200s as well as overactivity, and no sensation of bladder fullness. * Discontinued hydrochlorothiazide. * Unlikely to be able to self catheterization due to issues with seated balance and reduced dexterity with her hands. * Initiated tamsulosin 09/30/2018. Has improved residuals with range of 65 to 170; previously had been mid 200s. * Continue rehabilitation bladder program. # Spasticity Takes baclofen and gets botox through neurology as outpt * Used baclofen PRN at home, 80-100 mg each day typically. * Scheduled baclofen 40 mg in AM before arising, 20 mg before lunch, and 40 mg before dinner, starting afternoon of 09/28/2018. * Trial of tizanidine 1 mg at HS starting 10/01/2018. It has helped her sleep but unclear if it has helped spasticity. Increased to 2 mg at HS starting 2018. Reports improvement in right hand/forearm neuropathic symptoms, and she slept better. No change in episodes of extensor spasm of the spine and legs, which can happen with movement after prolonged immobility such as when repositioning in bed at night. - Scheduled for Botox on 10/12. She will need to reschedule. # Dysuria, 10/03/2018. New episode, 10/20/2018. * Given history of urosepsis, obtain CBC and UA 10/20/2018. No leukocytosis on CBC. UA weekly positive. Culture pending. * Will ask nursing to evaluate regarding possible vulvar irritation from external catheter. * Positive urinalysis, 10/03/2018, with white blood cells and leukocyte esterase. She denies symptoms currently, as of 10/04/2018. * Culture result 10/05/2018 with 8000 CFU yeast. No treatment indicated #Multiple Sclerosis * Usually receives PEG-interferon q2 weeks. Last due on 09/26. ID said OK to continue. * Patient reports she was interested in discontinuing. She says she typically has 3 days of weakness after an injection. She reports that her primary neurologist, Dr. Rosio Bach in [place], advised her to continue. Will defer to Dr. Bach for decision when patient follows up after discharge. * Question of new clonus and neuropathic symptoms, 10/20/2018. Will observe for evolution. She reports she is unable to lie still for an MRI. 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 Symptoms relieved with Tums. Vitals were stable. * Had indeterminate troponins during hospitalization. 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 Echocardiogram was normal but for mild mitral and tricuspid regurgitation. * Monitor were for recurrent symptoms. Will have low threshold for EKG and troponins versus transfer to emergency department. # Edema. She reports history of venous insufficiency in the left leg. She reports hydrochlorothiazide is prescribed for edema rather than for blood pressure. * Blood pressure is too low for hydrochlorothiazide, and it may not be the optimal treatment for edema due to venous insufficiency. * Continue compression stockings. Edema has responded well. * Weight and edema have been stable. Change weights from daily to every Friday. # Rash on right upper back. * PCR test negative for zoster. * Nursing using house skin lotion. # Sepsis 2/2 E.coli Bactermia/UTI - Finishing her Oral ABX cipro on 09/30 as per ID recs. - Continue to monitor for S/Sx of infection # Thrombocytopenia - Resolved as per labs on 09/27 and 325. # Transaminitis - Resolving per labs on 09/27 still slightly elevated ALT and AlkPhos # Anemia - Slightly drop on labs on 09/27. Improving on 09/28/2018. #History of LE DVT - Was on apixaban in 2016 was kept on ASA as prophylactic after that per patient - Held ASA and started on enoxaparin upon admission the rehabilitation unit.. - mobility is much improved as of 10/21/2018. Will discontinue enoxaparin and resume aspirin. Per literature review, there is no indication for usp anticoagulation in multiple sclerosis. #Hyperlipidemia - Continue on Statin DISPOSITION: Attended staffing, 15 min, 10/21/2018. Discussed with case management, dietitian, pharmacist, nursing, PT, OT. works in [place] and is gone 12 hr a day. Goal sufficient independence to return home. 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 Tentative discharge date is 11/02/2018. # Follow Up * PCP * Rosio Bach, Neurology (in [facility])? Intends to establish with new neurologist at [facility]. * Consider evaluation by Urology regarding bladder function. 10/21/18 11:02 Subjective: Denies pain with urination but high as burning after she urinates. She uses on external catheter at night. Not in pain. Has not noticed any subsequent clonus of the right lower extremity. No cough or dyspnea, no fevers or chills, no flank pain, no suprapubic pain. Objective: Vital Signs Temp Pulse Resp BP Pulse Ox 36.6 C 65 16 102/62 93 10/21/18 06:12 10/21/18 06:12 10/21/18 06:12 10/21/18 06:12 10/21/18 06:12 Laboratory Results 10/20/18 12:56 09/27/18 06:00 10/20/18 10/21/18 10/22/18 05:59 05:59 05:59 Intake Total 1340 1200 Output Total 9162 555 1254 Balance 340 800 -1275 - Time Spent With Patient Time Spent With Patient: Greater than 35 min floor time today, including more than 50% of time in coordination of care during staffing meeting, and counseling patient. Physical Exam - Physical Exam General Appearance: WD/WN, alert, no apparent distress Respiratory: No respiratory distress, No accessory muscle use Skin: normal color, warm/dry Neuro/Psych: alert, normal mood/affect, oriented x 3, motor weakness (Right upper extremity) ICD10 Worksheet Patient Problems: Problems Problem Status Onset Hypotension Acute Sepsis Acute Septic shock Acute Urinary tract infection Acute
[2018-10-21] MEDS: BACLOFEN 20 MG TAB PO SCH (12:12)
[2018-10-21] MEDS: MELATONIN 3 MG TAB PO PRN (22:08)
[2018-10-21] MEDS: LIDOCAINE 4% 15 GM CREAM TP PRN (22:09)
[2018-10-21] MEDS: tiZANidine HCL 2 MG TAB PO SCH (22:09)
[2018-10-21] MEDS: DICLOFENAC SODIUM 1% 100 GM GEL TP PRN (22:09)
[2018-10-21] MEDS: ACETAMINOPHEN 325 MG TAB PO PRN (22:09)
[2018-10-21] MEDS: ATORVASTATIN CALCIUM 20 MG TAB PO SCH (22:09)
[2018-10-22] MEDS: BACLOFEN 10 MG TAB PO SCH ×2 (05:55→17:58)
[2018-10-22] MEDS: MULTIVITAMINS 1 EACH TAB PO SCH (08:21)
[2018-10-22] MEDS: TAMSULOSIN HCL 0.4 MG CAP PO SCH (08:21)
[2018-10-22] MEDS: SENNOSIDES 1 TAB PO SCH ×2 (08:21→22:03)
[2018-10-22] MEDS: CHOLECALCIFEROL VIT D3 2,000 UNITS TAB/CAP PO SCH (08:21)
[2018-10-22] MEDS: FLUCONAZOLE 100 MG TAB PO SCH (11:10)
--- NOTE | 2018-10-22 11:12 | PCMIDPN ---
Assessment/Plan: # Perineal discomfort/ irritation: suspect intertrigo adjacent to vulva but also could consider contact dermatitis due to external catheter used at night. Atypical presentation of UTI also within realm of possibility --try fluconazole 200 mg 3-5 days --reviewed risk factors azoles with patient at bedside --if persistent burning post urination could consider contact dermatitis from external urinary cath vs UTI # Positive urine cx: suspect colonization/ bacteriuria. Sample was not a clean catch. --if fluconazole does not improve symptoms could consider re-eval for UTI and collect urine with straight cath --some urinary retention immediately following acute illness but patient w adequate urinary volumes and no difficulty voiding currently # E coli bacteremia and pyelonephritis on abx through 09/30/2018 Microbiology 10/20/18 13:14 Urine Cx: 100K Enterococcus Faecalis 10/03/18 15:13 Urine Cx: Yeast Species 09/20/18 11:30 Urine Cx: 100K Escherichia Coli 09/20/18 09:00 Blood Cx: 2/2: Escherichia Coli Subjective: 68-year-old woman with underlying multiple sclerosis who presented with sepsis and found to have E coli bacteremia due to pyelonephritis. Patient initially received IV ertapenem, then ceftriaxone then completed therapy with Cipro through 09/30/2018. Last couple days she has developed vulvar burning worse post urination. Denies dysuria, urinary frequency, inability to empty bladder, suprapubic pain, flank pain. No f/c/ns Objective: Vital Signs Temp Pulse Resp BP Pulse Ox 36.6 C 63 16 121/67 H 92 10/22/18 05:52 10/22/18 05:52 10/22/18 05:52 10/22/18 05:52 10/22/18 05:52 Laboratory Results 10/20/18 12:56 09/27/18 06:00 10/21/18 10/22/18 10/23/18 05:59 05:59 05:59 Intake Total 1200 1360 Output Total 400 2275 Balance 800 -915 - Physical Exam General Appearance: alert, no apparent distress, non-toxic EENT: No scleral icterus, No thrush Respiratory: lungs clear, No accessory muscle use Neck: supple Cardiac/Chest: regular rate, rhythm Extremities: No pedal edema Abdomen: normal bowel sounds, non-tender, soft Pelvic Exam: other (Mild inflammation the vulva, more posteriorly, with small amount of white discharge externally. Urethra meatus WNL; no suprapubic pain), No collins Skin: warm/dry, No diaphoresis, No rash Neuro/Psych: alert, normal mood/affect, oriented x 3 - Time Spent With Patient Time Spent with Patient: greater than 35 minutes Time Spent with Patient: Greater than 35 minutes spent on this patients care, greater than 50% of time spent counseling, educating, and coordinating care regarding the above mentioned plan. ICD10 Worksheet Patient Problems: Problems Problem Status Onset Hypotension Acute Sepsis Acute Septic shock Acute Urinary tract infection Acute
--- NOTE | 2018-10-22 11:37 | SOAPPROG ---
SOAP Progress Note Assessment/Plan: Assessment: # Debility 2/2 severe sepsis and exacerbation of weakness from her MS, hospitalized 09/20/2018. * Initial functional independence measure his 49 on 09/28/2018, improved to 59 as of 10/02/2018, to 69 as of 10/08/2018 and to 82 as of 10/14/2018, and to 90 as of 10/21/2018. Standby assist to contact guard assist/Min assist for transfers depending on level of fatigue. Ambulates 120 ft with a front wheeled walker and contact guard assist, though therapies reports she looks "scary ". Can self propel wheelchair 150 ft. Independent with toileting and toilet transfer. Does grooming and hygiene with modified independence from the wheelchair. Upper body dressing requires minimal assist, lower body dressing requires minimal to moderate assist. Shower transfer requires close standby assist and she bathes with minimal assist. * Using external female a catheter at night and wishes to continue. Discussed goal of being able transfer to commode at night, 10/22/2018. * Continue PT and OT will optimize her ADLs, transfers, mobility and stair negotiation. # Neurogenic bladder. Has retention with postvoid residuals in the mid 200s as well as overactivity, and no sensation of bladder fullness. * Discontinued hydrochlorothiazide. * Unlikely to be able to self catheterization due to issues with seated balance and reduced dexterity with her hands. * Initiated tamsulosin 09/30/2018. Has improved residuals with range of 65 to 170; previously had been mid 200s. * Continue rehabilitation bladder program. # Spasticity Takes baclofen and gets botox through neurology as outpt * Used baclofen PRN at home, 80-100 mg each day typically. * Scheduled baclofen 40 mg in AM before arising, 20 mg before lunch, and 40 mg before dinner, starting afternoon of 09/28/2018. * Trial of tizanidine 1 mg at HS starting 10/01/2018. It has helped her sleep but unclear if it has helped spasticity. Increased to 2 mg at HS starting 2018. Reports improvement in right hand/forearm neuropathic symptoms, and she slept better. No change in episodes of extensor spasm of the spine and legs, which can happen with movement after prolonged immobility such as when repositioning in bed at night. - Scheduled for Botox on 10/12. She will need to reschedule. # Dysuria, 10/03/2018. New episode, 10/20/2018. * Given history of urosepsis, obtain CBC and UA 10/20/2018. No leukocytosis on CBC. UA weekly positive. Culture with Enterococcus faecalis. Appreciate assistance of Infectious Disease regarding whether she should be treated for UTI. * Trial of Diflucan ordered by Infectious Disease. Observe for resolution of symptoms for presumed vulvar yeast infection. * Positive urinalysis, 10/03/2018, with white blood cells and leukocyte esterase. She denies symptoms currently, as of 10/04/2018. * Culture result 10/05/2018 with 8000 CFU yeast. No treatment indicated #Multiple Sclerosis * Usually receives PEG-interferon q2 weeks. Last due on 09/26. ID said OK to continue. * Patient reports she was interested in discontinuing. She says she typically has 3 days of weakness after an injection. She reports that her primary neurologist, Dr. Rosio Bach in [place], advised her to continue. Will defer to Dr. Bach for decision when patient follows up after discharge. * Question of new clonus and neuropathic symptoms, 10/20/2018. Will observe for evolution. She reports she is unable to lie still for an MRI. 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 Symptoms relieved with Tums. Vitals were stable. * Had indeterminate troponins during hospitalization. EKGs x2 were consistent with possible old inferior wall PR with Q-waves in AVF. Echocardiogram was normal but for mild mitral and tricuspid regurgitation. * Monitor were for recurrent symptoms. Will have low threshold for EKG and troponins versus transfer to emergency department. # Edema. She reports history of venous insufficiency in the left leg. She reports hydrochlorothiazide is prescribed for edema rather than for blood pressure. * Resume hydrochlorothiazide, 10/22/2018, per her request. * Continue compression stockings. Edema has responded well. * Weight and edema have been stable. Change weights from daily to every Friday. # Rash on right upper back. * PCR test negative for zoster. * Nursing using house skin lotion. # Sepsis 2/2 E.coli Bactermia/UTI - Finishing her Oral ABX cipro on 09/30 as per ID recs. - Continue to monitor for S/Sx of infection # Thrombocytopenia - Resolved as per labs on 09/27 and 325. # Transaminitis - Resolving per labs on 09/27 still slightly elevated ALT and AlkPhos # Anemia - Slightly drop on labs on 09/27. Improving on 09/28/2018. #History of LE DVT - Was on apixaban in 2016 was kept on ASA as prophylactic after that per patient - Held ASA and started on enoxaparin upon admission the rehabilitation unit.. - Mobility is much improved as of 10/21/2018. Will discontinue enoxaparin and resume aspirin, 10/22/2018. Per literature review, there is no indication for long goods drier anticoagulation in multiple sclerosis. #Hyperlipidemia - Continue on Statin DISPOSITION: Attended staffing, 15 min, 10/21/2018. Discussed with case management, dietitian, pharmacist, nursing, PT, OT. works in [place] and is gone 12 hr a day. Goal sufficient independence to return home. 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 Tentative discharge date is 11/02/2018. # Follow Up * PCP * Neurologist Dr. Aldana at [facility]. * Consider evaluation by Urology regarding bladder function. 10/21/18 11:02 10/22/18 11:32 Subjective: No complaints today. Expresses concern about edema. She was previously on a diuretic and she has noticed return of edema and would like to be on diuretic again. She continues to have perineal irritation after she voids. She was seen today by infectious disease specialist to has prescribed fluconazole. Objective: Vital Signs Temp Pulse Resp BP Pulse Ox 36.6 C 63 16 121/67 H 92 10/22/18 05:52 10/22/18 05:52 10/22/18 05:52 10/22/18 05:52 10/22/18 05:52 Laboratory Results 10/20/18 12:56 09/27/18 06:00 10/21/18 10/22/18 10/23/18 05:59 05:59 05:59 Intake Total 1200 1360 Output Total 400 2275 Balance 800 -915 Physical Exam - Physical Exam General Appearance: WD/WN, alert, no apparent distress Respiratory: No respiratory distress, No accessory muscle use Cardiac/Chest: edema (1+ bilateral pretibial) Skin: normal color, warm/dry Neuro/Psych: alert, normal mood/affect, oriented x 3, motor weakness, other ( Observed transfer to her strong side, to the left, from bed to commode, independently, though therapist kept a hand on her.) ICD10 Worksheet Patient Problems: Problems Problem Status Onset Hypotension Acute Sepsis Acute Septic shock Acute Urinary tract infection Acute
[2018-10-22] MEDS: ASPIRIN EC 81 MG TAB PO SCH (11:51)
[2018-10-22] MEDS: BACLOFEN 20 MG TAB PO SCH (11:51)
[2018-10-22] MEDS: HYDROCHLOROTHIAZIDE 25 MG TAB PO SCH (11:52)
[2018-10-22] MEDS: ACETAMINOPHEN 325 MG TAB PO PRN (22:03)
[2018-10-22] MEDS: ATORVASTATIN CALCIUM 20 MG TAB PO SCH (22:03)
[2018-10-22] MEDS: MELATONIN 3 MG TAB PO PRN (22:03)
[2018-10-22] MEDS: DICLOFENAC SODIUM 1% 100 GM GEL TP PRN (22:03)
[2018-10-22] MEDS: tiZANidine HCL 2 MG TAB PO SCH (22:03)
[2018-10-22] MEDS: LIDOCAINE 4% 15 GM CREAM TP PRN (22:04)
[2018-10-23] MEDS: BACLOFEN 10 MG TAB PO SCH ×2 (06:02→17:50)
[2018-10-23] MEDS: ASPIRIN EC 81 MG TAB PO SCH (08:45)
[2018-10-23] MEDS: CHOLECALCIFEROL VIT D3 2,000 UNITS TAB/CAP PO SCH (08:45)
[2018-10-23] MEDS: HYDROCHLOROTHIAZIDE 25 MG TAB PO SCH (08:46)
[2018-10-23] MEDS: FLUCONAZOLE 100 MG TAB PO SCH (08:46)
[2018-10-23] MEDS: MULTIVITAMINS 1 EACH TAB PO SCH (08:49)
[2018-10-23] MEDS: SENNOSIDES 1 TAB PO SCH ×2 (08:49→21:40)
[2018-10-23] MEDS: TAMSULOSIN HCL 0.4 MG CAP PO SCH (08:49)
[2018-10-23] MEDS: BACLOFEN 20 MG TAB PO SCH (12:01)
--- NOTE | 2018-10-23 12:31 | SOAPPROG ---
SOAP Progress Note Assessment/Plan: Assessment: # Debility 2/2 severe sepsis and exacerbation of weakness from her MS, hospitalized 09/20/2018. * Initial functional independence measure his 49 on 09/28/2018, improved to 59 as of 10/02/2018, to 69 as of 10/08/2018 and to 82 as of 10/14/2018, and to 90 as of 10/21/2018. Standby assist to contact guard assist/Min assist for transfers depending on level of fatigue. Ambulates 120 ft with a front wheeled walker and contact guard assist, though therapies reports she looks "scary ". Can self propel wheelchair 150 ft. Independent with toileting and toilet transfer. Does grooming and hygiene with modified independence from the wheelchair. Upper body dressing requires minimal assist, lower body dressing requires minimal to moderate assist. Shower transfer requires close standby assist and she bathes with minimal assist. * Using external female a catheter at night and wishes to continue. Discussed goal of being able transfer to commode at night, 10/22/2018. * Continue PT and OT will optimize her ADLs, transfers, mobility and stair negotiation. # Neurogenic bladder. Had retention with postvoid residuals in the mid 200s as well as overactivity, and no sensation of bladder fullness. * Unlikely to be able to self catheterization due to issues with seated balance and reduced dexterity with her hands. * Initiated tamsulosin 09/30/2018. Has improved residuals with range of 65 to 170; previously had been mid 200s. * Continue rehabilitation bladder program. # Spasticity Takes baclofen and gets botox through neurology as outpt * Used baclofen PRN at home, 80-100 mg each day typically. * Scheduled baclofen 40 mg in AM before arising, 20 mg before lunch, and 40 mg before dinner, starting afternoon of 09/28/2018. * Trial of tizanidine 1 mg at HS starting 10/01/2018. It has helped her sleep but unclear if it has helped spasticity. Increased to 2 mg at HS starting 2018. Reports improvement in right hand/forearm neuropathic symptoms, and she slept better. No change in episodes of extensor spasm of the spine and legs, which can happen with movement after prolonged immobility such as when repositioning in bed at night. - Scheduled for Botox on 10/12. She will need to reschedule. # Dysuria, 10/03/2018. New episode, 10/20/2018. * Given history of urosepsis, obtain CBC and UA 10/20/2018. No leukocytosis on CBC. UA weekly positive. Culture with Enterococcus faecalis. Appreciate assistance of Infectious Disease regarding whether she should be treated for UTI. * Trial of Diflucan ordered by Infectious Disease. Observe for resolution of symptoms for presumed vulvar yeast infection. * Positive urinalysis, 10/03/2018, with white blood cells and leukocyte esterase. She denies symptoms currently, as of 10/04/2018. * Culture result 10/05/2018 with 8000 CFU yeast. No treatment indicated #Multiple Sclerosis * Usually receives PEG-interferon q2 weeks. Last due on 09/26. ID said OK to continue. * Patient reports she was interested in discontinuing. She says she typically has 3 days of weakness after an injection. * Neurology consult 10/23/2018 for advice on medication. * She will establish with new neurologist Dr. Aldana at [facility] sometime in November. 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 Symptoms relieved with Tums. Vitals were stable. * Had indeterminate troponins during hospitalization. EKGs x2 were consistent with possible old inferior wall [place] with Q-waves in AVF. Echocardiogram was normal but for mild mitral and tricuspid regurgitation. * Monitor were for recurrent symptoms. Will have low threshold for EKG and troponins versus transfer to emergency department. # Edema. She reports history of venous insufficiency in the left leg. She reports hydrochlorothiazide is prescribed for edema rather than for blood pressure. * Resume hydrochlorothiazide, 10/22/2018, per her request. * Continue compression stockings. Edema has responded well. * Weight and edema have been stable. Change weights from daily to every Friday. # Rash on right upper back. * PCR test negative for zoster. * Nursing using house skin lotion. # Sepsis 2/2 E.coli Bactermia/UTI - Finishing her Oral ABX cipro on 09/30 as per ID recs. - Continue to monitor for S/Sx of infection # Thrombocytopenia - Resolved as per labs on 09/27 and 325. # Transaminitis - Resolving per labs on 09/27 still slightly elevated ALT and AlkPhos # Anemia - Slightly drop on labs on 09/27. Improving on 09/28/2018. #History of LE DVT - Was on apixaban in 2016 was kept on ASA as prophylactic after that per patient - Held ASA and started on enoxaparin upon admission the rehabilitation unit.. - Mobility is much improved as of 10/21/2018. Will discontinue enoxaparin and resume aspirin, 10/22/2018. Per literature review, there is no indication for correction anticoagulation in multiple sclerosis. #Hyperlipidemia - Continue on Statin DISPOSITION: Attended staffing, 15 min, 10/21/2018. Discussed with case management, dietitian, pharmacist, nursing, PT, OT. works in [place] and is gone 12 hr a day. Goal sufficient independence to return home. 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 Tentative discharge date is 11/02/2018. # Follow Up * PCP * Neurologist Dr. Aldana at [facility]. * Consider evaluation by Urology regarding bladder function. 10/23/18 12:25 Subjective: Had frequent urination after initiating diuretic yesterday. Had 1 episode of urgency and incontinence at night after she went to bed, while trying to transfer to bedside commode. No more dysuria; fall far irritation is resolved. She expresses concern regarding medications for multiple sclerosis. She knows Plegrity leaves her weak for 3 days and she prefers not to experience that. Objective: Vital Signs Temp Pulse Resp BP Pulse Ox 36.7 C 63 16 110/73 93 10/23/18 06:06 10/23/18 06:06 10/23/18 06:06 10/23/18 08:46 10/23/18 06:06 Laboratory Results 10/20/18 12:56 09/27/18 06:00 10/22/18 10/23/18 10/24/18 05:59 05:59 05:59 Intake Total 1360 1300 Output Total 2275 725 Balance -915 575 Physical Exam - Physical Exam General Appearance: WD/WN, alert, no apparent distress Respiratory: normal breath sounds, No crackles, No rhonchi, No wheezing Cardiac/Chest: regular rate, rhythm, edema (Trace right pretibial), No diastolic murmur, No systolic murmur Skin: normal color, warm/dry Neuro/Psych: alert, normal mood/affect, oriented x 3, motor weakness (Right upper extremity) ICD10 Worksheet Patient Problems: Problems Problem Status Onset Hypotension Acute Sepsis Acute Septic shock Acute Urinary tract infection Acute
[2018-10-23] MEDS: ACETAMINOPHEN 325 MG TAB PO PRN (21:39)
[2018-10-23] MEDS: ATORVASTATIN CALCIUM 20 MG TAB PO SCH (21:40)
[2018-10-23] MEDS: tiZANidine HCL 2 MG TAB PO SCH (21:40)
[2018-10-23] MEDS: MELATONIN 3 MG TAB PO PRN (21:40)
[2018-10-23] MEDS: DICLOFENAC SODIUM 1% 100 GM GEL TP PRN (21:40)
[2018-10-23] MEDS: LIDOCAINE 4% 15 GM CREAM TP PRN (21:41)
[2018-10-24] MEDS: CALCIUM CARBONATE 500 MG CHEWABLE TAB PO PRN (01:44)
[2018-10-24] MEDS: BACLOFEN 10 MG TAB PO SCH ×2 (06:09→17:38)
[2018-10-24] MEDS: TAMSULOSIN HCL 0.4 MG CAP PO SCH (08:41)
[2018-10-24] MEDS: SENNOSIDES 1 TAB PO SCH ×2 (08:41→21:17)
[2018-10-24] MEDS: CHOLECALCIFEROL VIT D3 2,000 UNITS TAB/CAP PO SCH (08:41)
[2018-10-24] MEDS: MULTIVITAMINS 1 EACH TAB PO SCH (08:41)
[2018-10-24] MEDS: ASPIRIN EC 81 MG TAB PO SCH (08:42)
[2018-10-24] MEDS: HYDROCHLOROTHIAZIDE 25 MG TAB PO SCH (08:42)
[2018-10-24] MEDS: FLUCONAZOLE 100 MG TAB PO SCH (08:42)
--- NOTE | 2018-10-24 12:35 | HOSPPROG ---
Hospitalist Progress Note Assessment/Plan: # Debility 2/2 severe sepsis and exacerbation of weakness from her MS, hospitalized 09/20/2018. * Initial functional independence measure his 49 on 09/28/2018, improved to 59 as of 10/02/2018, to 69 as of 10/08/2018 and to 82 as of 10/14/2018, and to 90 as of 10/21/2018. Standby assist to contact guard assist/Min assist for transfers depending on level of fatigue. Ambulates 120 ft with a front wheeled walker and contact guard assist, though therapies reports she looks "scary ". Can self propel wheelchair 150 ft. Independent with toileting and toilet transfer. Does grooming and hygiene with modified independence from the wheelchair. Upper body dressing requires minimal assist, lower body dressing requires minimal to moderate assist. Shower transfer requires close standby assist and she bathes with minimal assist. * Using external female a catheter at night and wishes to continue. Discussed goal of being able transfer to commode at night, 10/22/2018. * Continue PT and OT will optimize her ADLs, transfers, mobility and stair negotiation. # Neurogenic bladder. Had retention with postvoid residuals in the mid 200s as well as overactivity, and no sensation of bladder fullness. * Unlikely to be able to self catheterization due to issues with seated balance and reduced dexterity with her hands. * Initiated tamsulosin 09/30/2018. Has improved residuals with range of 65 to 170; previously had been mid 200s. * Continue rehabilitation bladder program. # Spasticity Takes baclofen and gets botox through neurology as outpt * Used baclofen PRN at home, 80-100 mg each day typically. * Scheduled baclofen 40 mg in AM before arising, 20 mg before lunch, and 40 mg before dinner, starting afternoon of 09/28/2018. * Trial of tizanidine 1 mg at HS starting 10/01/2018. It has helped her sleep but unclear if it has helped spasticity. Increased to 2 mg at HS starting 2018. Reports improvement in right hand/forearm neuropathic symptoms, and she slept better. No change in episodes of extensor spasm of the spine and legs, which can happen with movement after prolonged immobility such as when repositioning in bed at night. - Scheduled for Botox on 10/12. She will need to reschedule. # Dysuria, 10/03/2018. New episode, 10/20/2018. * Given history of urosepsis, obtain CBC and UA 10/20/2018. No leukocytosis on CBC. UA weekly positive. Culture with Enterococcus faecalis. Appreciate assistance of Infectious Disease regarding whether she should be treated for UTI. * Trial of Diflucan ordered by Infectious Disease. Observe for resolution of symptoms for presumed vulvar yeast infection. * Positive urinalysis, 10/03/2018, with white blood cells and leukocyte esterase. She denies symptoms currently, as of 10/04/2018. * Culture result 10/05/2018 with 8000 CFU yeast. No treatment indicated #Multiple Sclerosis * Usually receives PEG-interferon q2 weeks. Last due on 09/26. ID said OK to continue. * Patient reports she was interested in discontinuing. She says she typically has 3 days of weakness after an injection. * Neurology consult 10/23/2018 for advice on medication. * She will establish with new neurologist Dr. Aldana at [facility] sometime in November. 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 Symptoms relieved with Tums. Vitals were stable. * Had indeterminate troponins during hospitalization. EKGs x2 were consistent with possible old inferior wall [place] with Q-waves in AVF. Echocardiogram was normal but for mild mitral and tricuspid regurgitation. * Monitor were for recurrent symptoms. Will have low threshold for EKG and troponins versus transfer to emergency department. # Edema. She reports history of venous insufficiency in the left leg. She reports hydrochlorothiazide is prescribed for edema rather than for blood pressure. * Resume hydrochlorothiazide, 10/22/2018, per her request. * Continue compression stockings. Edema has responded well. * Weight and edema have been stable. Change weights from daily to every Friday. # Rash on right upper back. * PCR test negative for zoster. * Nursing using house skin lotion. # Sepsis 2/2 E.coli Bactermia/UTI - Finishing her Oral ABX cipro on 09/30 as per ID recs. - Continue to monitor for S/Sx of infection # Thrombocytopenia - Resolved as per labs on 09/27 and 325. # Transaminitis - Resolving per labs on 09/27 still slightly elevated ALT and AlkPhos # Anemia - Slightly drop on labs on 09/27. Improving on 09/28/2018. #History of LE DVT - Was on apixaban in 2016 was kept on ASA as prophylactic after that per patient - Held ASA and started on enoxaparin upon admission the rehabilitation unit.. - Mobility is much improved as of 10/21/2018. Will discontinue enoxaparin and resume aspirin, 10/22/2018. Per literature review, there is no indication for rn long term care anticoagulation in multiple sclerosis. #Hyperlipidemia - Continue on Statin Subjective: no new complaints. wondering about anticoagulation when she goes home Objective: Vital Signs Temp Pulse Resp BP Pulse Ox 36.4 C 81 16 134/80 H 94 10/24/18 08:00 10/24/18 08:00 10/24/18 08:00 10/24/18 08:00 10/24/18 08:00 Microbiology 10/20/18 13:14 Urine Culture - Final Urine,Clean Catch Enterococcus Faecalis Two [place] Types Laboratory Results 10/20/18 12:56 09/27/18 06:00 10/23/18 10/24/18 10/25/18 05:59 05:59 05:59 Intake Total 1300 790 Output Total 725 300 Balance 575 490 - Physical Exam Constitutional: no apparent distress, appears nourished, not in pain Eyes: anicteric sclera, EOMI Ears, Nose, Mouth, Throat: moist mucous membranes Cardiovascular: regular rate and rhythym Respiratory: no respiratory distress Gastrointestinal: normoactive bowel sounds, soft, non-tender abdomen Skin: warm Neurologic: AAOx3 Psychiatric: interacting appropriately, not anxious, not encephalopathic, thought process linear ICD10 Worksheet Patient Problems: Problems Problem Status Onset Hypotension Acute Sepsis Acute Septic shock Acute Urinary tract infection Acute
[2018-10-24] MEDS: BACLOFEN 20 MG TAB PO SCH (12:49)
[2018-10-24] MEDS: ATORVASTATIN CALCIUM 20 MG TAB PO SCH (21:17)
[2018-10-24] MEDS: ACETAMINOPHEN 325 MG TAB PO PRN (21:17)
[2018-10-24] MEDS: tiZANidine HCL 2 MG TAB PO SCH (21:17)
[2018-10-24] MEDS: MELATONIN 3 MG TAB PO PRN (21:17)
[2018-10-24] MEDS: LIDOCAINE 4% 15 GM CREAM TP PRN (21:21)
[2018-10-24] MEDS: DICLOFENAC SODIUM 1% 100 GM GEL TP PRN (21:23)
[2018-10-25] MEDS: BACLOFEN 10 MG TAB PO SCH ×2 (06:00→18:45)
[2018-10-25] MEDS: MULTIVITAMINS 1 EACH TAB PO SCH (08:40)
[2018-10-25] MEDS: TAMSULOSIN HCL 0.4 MG CAP PO SCH (08:40)
[2018-10-25] MEDS: CHOLECALCIFEROL VIT D3 2,000 UNITS TAB/CAP PO SCH (08:40)
[2018-10-25] MEDS: SENNOSIDES 1 TAB PO SCH ×2 (08:40→20:54)
[2018-10-25] MEDS: HYDROCHLOROTHIAZIDE 25 MG TAB PO SCH (08:41)
[2018-10-25] MEDS: FLUCONAZOLE 100 MG TAB PO SCH (08:42)
[2018-10-25] MEDS: ASPIRIN EC 81 MG TAB PO SCH (08:42)
--- NOTE | 2018-10-25 10:29 | HOSPPROG ---
Hospitalist Progress Note Assessment/Plan: # Debility 2/2 severe sepsis and exacerbation of weakness from her MS, hospitalized 09/20/2018. * Initial functional independence measure his 49 on 09/28/2018, improved to 59 as of 10/02/2018, to 69 as of 10/08/2018 and to 82 as of 10/14/2018, and to 90 as of 10/21/2018. Standby assist to contact guard assist/Min assist for transfers depending on level of fatigue. Ambulates 120 ft with a front wheeled walker and contact guard assist, though therapies reports she looks "scary ". Can self propel wheelchair 150 ft. Independent with toileting and toilet transfer. Does grooming and hygiene with modified independence from the wheelchair. Upper body dressing requires minimal assist, lower body dressing requires minimal to moderate assist. Shower transfer requires close standby assist and she bathes with minimal assist. * Using external female a catheter at night and wishes to continue. Discussed goal of being able transfer to commode at night, 10/22/2018. * Continue PT and OT will optimize her ADLs, transfers, mobility and stair negotiation. # Neurogenic bladder. Had retention with postvoid residuals in the mid 200s as well as overactivity, and no sensation of bladder fullness. * Unlikely to be able to self catheterization due to issues with seated balance and reduced dexterity with her hands. * Initiated tamsulosin 09/30/2018. Has improved residuals with range of 65 to 170; previously had been mid 200s. * Continue rehabilitation bladder program. # Spasticity Takes baclofen and gets botox through neurology as outpt * Used baclofen PRN at home, 80-100 mg each day typically. * Scheduled baclofen 40 mg in AM before arising, 20 mg before lunch, and 40 mg before dinner, starting afternoon of 09/28/2018. * Trial of tizanidine 1 mg at HS starting 10/01/2018. It has helped her sleep but unclear if it has helped spasticity. Increased to 2 mg at HS starting 2018. Reports improvement in right hand/forearm neuropathic symptoms, and she slept better. No change in episodes of extensor spasm of the spine and legs, which can happen with movement after prolonged immobility such as when repositioning in bed at night. - Scheduled for Botox on 10/12. She will need to reschedule. # Dysuria, 10/03/2018. New episode, 10/20/2018. * Given history of urosepsis, obtain CBC and UA 10/20/2018. No leukocytosis on CBC. UA weekly positive. Culture with Enterococcus faecalis. Appreciate assistance of Infectious Disease regarding whether she should be treated for UTI. * Trial of Diflucan ordered by Infectious Disease. Observe for resolution of symptoms for presumed vulvar yeast infection. * Positive urinalysis, 10/03/2018, with white blood cells and leukocyte esterase. She denies symptoms currently, as of 10/04/2018. * Culture result 10/05/2018 with 8000 CFU yeast. No treatment indicated #Multiple Sclerosis * Usually receives PEG-interferon q2 weeks. Last due on 09/26. ID said OK to continue. * Patient reports she was interested in discontinuing. She says she typically has 3 days of weakness after an injection. * Neurology consult 10/23/2018 for advice on medication. * She will establish with new neurologist Dr. Aldana at [facility] sometime in November. 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 Symptoms relieved with Tums. Vitals were stable. * Had indeterminate troponins during hospitalization. 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 Echocardiogram was normal but for mild mitral and tricuspid regurgitation. * Monitor were for recurrent symptoms. Will have low threshold for EKG and troponins versus transfer to emergency department. # Edema. She reports history of venous insufficiency in the left leg. She reports hydrochlorothiazide is prescribed for edema rather than for blood pressure. * Resume hydrochlorothiazide, 10/22/2018, per her request. * Continue compression stockings. Edema has responded well. * Weight and edema have been stable. Change weights from daily to every Friday. # Rash on right upper back. * PCR test negative for zoster. * Nursing using house skin lotion. # Sepsis 2/2 E.coli Bactermia/UTI - Finishing her Oral ABX cipro on 09/30 as per ID recs. - Continue to monitor for S/Sx of infection # Thrombocytopenia - Resolved as per labs on 09/27 and 325. # Transaminitis - Resolving per labs on 09/27 still slightly elevated ALT and AlkPhos # Anemia - Slightly drop on labs on 09/27. Improving on 09/28/2018. #History of LE DVT - Was on apixaban in 2016 was kept on ASA as prophylactic after that per patient - Held ASA and started on enoxaparin upon admission the rehabilitation unit.. - Mobility is much improved as of 10/21/2018. Will discontinue enoxaparin and resume aspirin, 10/22/2018. Per literature review, there is no indication for penitentiary anticoagulation in multiple sclerosis. #Hyperlipidemia - Continue on Statin Subjective: no new comlaints Objective: Vital Signs Temp Pulse Resp BP Pulse Ox 36.6 C 61 16 108/58 L 91 L 10/25/18 06:01 10/25/18 06:01 10/25/18 06:01 10/25/18 06:01 10/25/18 06:01 Microbiology 10/20/18 13:14 Urine Culture - Final Urine,Clean Catch Enterococcus Faecalis Two [place] Types Laboratory Results 10/20/18 12:56 09/27/18 06:00 10/24/18 10/25/18 10/26/18 05:59 05:59 05:59 Intake Total 790 480 450 Output Total 300 500 500 Balance 490 -20 -50 - Physical Exam Constitutional: no apparent distress, appears nourished, not in pain Eyes: anicteric sclera, EOMI Ears, Nose, Mouth, Throat: moist mucous membranes Cardiovascular: regular rate and rhythym, No edema Respiratory: no respiratory distress Skin: warm Neurologic: AAOx3 Psychiatric: interacting appropriately, not anxious, not encephalopathic, thought process linear ICD10 Worksheet Patient Problems: Problems Problem Status Onset Hypotension Acute Sepsis Acute Septic shock Acute Urinary tract infection Acute
[2018-10-25] MEDS: BACLOFEN 20 MG TAB PO SCH (12:16)
[2018-10-25] MEDS: ATORVASTATIN CALCIUM 20 MG TAB PO SCH (20:54)
[2018-10-25] MEDS: tiZANidine HCL 2 MG TAB PO SCH (20:54)
[2018-10-25] MEDS: LIDOCAINE 4% 15 GM CREAM TP PRN (22:27)
[2018-10-25] MEDS: ACETAMINOPHEN 325 MG TAB PO PRN (22:30)
[2018-10-25] MEDS: MELATONIN 3 MG TAB PO PRN (22:30)
[2018-10-25] MEDS: DICLOFENAC SODIUM 1% 100 GM GEL TP PRN (22:31)
[2018-10-26] MEDS: BACLOFEN 10 MG TAB PO SCH ×2 (05:51→17:17)
[2018-10-26] MEDS: ASPIRIN EC 81 MG TAB PO SCH (08:34)
[2018-10-26] MEDS: FLUCONAZOLE 100 MG TAB PO SCH (08:34)
[2018-10-26] MEDS: CHOLECALCIFEROL VIT D3 2,000 UNITS TAB/CAP PO SCH (08:34)
[2018-10-26] MEDS: HYDROCHLOROTHIAZIDE 25 MG TAB PO SCH (08:34)
[2018-10-26] MEDS: MULTIVITAMINS 1 EACH TAB PO SCH (08:36)
[2018-10-26] MEDS: TAMSULOSIN HCL 0.4 MG CAP PO SCH (08:36)
[2018-10-26] MEDS: SENNOSIDES 1 TAB PO SCH ×2 (08:36→22:07)
[2018-10-26] MEDS: BACLOFEN 20 MG TAB PO SCH (13:11)
--- NOTE | 2018-10-26 14:03 | SOAPPROG ---
SOAP Progress Note Assessment/Plan: Assessment: # Debility 2/2 severe sepsis and exacerbation of weakness from her MS, hospitalized 09/20/2018. * Initial functional independence measure his 49 on 09/28/2018, improved to 59 as of 10/02/2018, to 69 as of 10/08/2018 and to 82 as of 10/14/2018, and to 90 as of 10/21/2018. Standby assist to contact guard assist/Min assist for transfers depending on level of fatigue. Ambulates 120 ft with a front wheeled walker and contact guard assist, though therapies reports she looks "scary ". Can self propel wheelchair 150 ft. Independent with toileting and toilet transfer. Does grooming and hygiene with modified independence from the wheelchair. Upper body dressing requires minimal assist, lower body dressing requires minimal to moderate assist. Shower transfer requires close standby assist and she bathes with minimal assist. * Ambulation improved to standby assist with 4 wheel walker as of 10/26/2018. * Using external female a catheter at night and wishes to continue. Discussed goal of being able transfer to commode at night, 10/22/2018. * Continue PT and OT will optimize her ADLs, transfers, mobility and stair negotiation. # Neurogenic bladder. Had retention with postvoid residuals in the mid 200s as well as overactivity, and no sensation of bladder fullness. * Unlikely to be able to self catheterization due to issues with seated balance and reduced dexterity with her hands. * Initiated tamsulosin 09/30/2018. Has improved residuals with range of 65 to 170; previously had been mid 200s. * Continue rehabilitation bladder program. # Spasticity Takes baclofen and gets botox through neurology as outpt * Used baclofen PRN at home, 80-100 mg each day typically. * Scheduled baclofen 40 mg in AM before arising, 20 mg before lunch, and 40 mg before dinner, starting afternoon of 09/28/2018. * Trial of tizanidine 1 mg at HS starting 10/01/2018. It has helped her sleep but unclear if it has helped spasticity. Increased to 2 mg at HS starting 2018. Reports improvement in right hand/forearm neuropathic symptoms, and she slept better. No change in episodes of extensor spasm of the spine and legs, which can happen with movement after prolonged immobility such as when repositioning in bed at night. - Scheduled for Botox on 10/12. She will need to reschedule. # Dysuria, 10/03/2018. New episode, 10/20/2018. * Given history of urosepsis, obtain CBC and UA 10/20/2018. No leukocytosis on CBC. UA weekly positive. Culture with Enterococcus faecalis. Appreciate assistance of Infectious Disease regarding whether she should be treated for UTI. * Trial of Diflucan ordered by Infectious Disease. Observe for resolution of symptoms for presumed vulvar yeast infection. * Positive urinalysis, 10/03/2018, with white blood cells and leukocyte esterase. She denies symptoms currently, as of 10/04/2018. * Culture result 10/05/2018 with 8000 CFU yeast. No treatment indicated #Multiple Sclerosis * Usually receives PEG-interferon q2 weeks. Last due on 09/26. ID said OK to continue. * Patient reports she was interested in discontinuing. She says she typically has 3 days of weakness after an injection. * She will establish with new neurologist Dr. Aldana at [facility] November 27, 2018. * She plans to resume peg interferon after discharge from inpatient rehabilitation. She hopes to initiate a new medication which would not cause short-term weakness after administration, after follow-up with Neurology. 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 Symptoms relieved with Tums. Vitals were stable. * Had indeterminate troponins during hospitalization. EKGs x2 were consistent with possible old inferior wall [place] with Q-waves in AVF. Echocardiogram was normal but for mild mitral and tricuspid regurgitation. * Monitor were for recurrent symptoms. Will have low threshold for EKG and troponins versus transfer to emergency department. # Edema. She reports history of venous insufficiency in the left leg. She reports hydrochlorothiazide is prescribed for edema rather than for blood pressure. * Resume hydrochlorothiazide, 10/22/2018, per her request. * Continue compression stockings. Edema has responded well. * Weight and edema have been stable. Change weights from daily to every Friday. # Rash on right upper back. * PCR test negative for zoster. * Nursing using house skin lotion. # Sepsis 2/2 E.coli Bactermia/UTI - Finishing her Oral ABX cipro on 09/30 as per ID recs. - Continue to monitor for S/Sx of infection # Thrombocytopenia - Resolved as per labs on 09/27 and 325. # Transaminitis - Resolving per labs on 09/27 still slightly elevated ALT and AlkPhos # Anemia - Slightly drop on labs on 09/27. Improving on 09/28/2018. #History of LE DVT - Was on apixaban in 2016 was kept on ASA as prophylactic after that per patient - Held ASA and started on enoxaparin upon admission the rehabilitation unit.. - Mobility is much improved as of 10/21/2018. Will discontinue enoxaparin and resume aspirin, 10/22/2018. Per literature review, there is no indication for skilled nursing anticoagulation in multiple sclerosis. #Hyperlipidemia - Continue on Statin DISPOSITION: Attended staffing, 15 min, 10/21/2018. Discussed with case management, dietitian, pharmacist, nursing, PT, OT. works in [place] and is gone 12 hr a day. Goal sufficient independence to return home. 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 Tentative discharge date is 11/02/2018. # Follow Up * PCP * Neurologist Dr. Aldana at [facility]. * Consider evaluation by Urology regarding bladder function. 10/26/18 13:58 Subjective: No complaints. Sleeping well. Not experiencing spasticity through the night. She says she benefits from the lidocaine cream to her right hand and wrist for symptom management over night. She reports she has been walking more with therapies. Objective: Vital Signs Temp Pulse Resp BP Pulse Ox 36.7 C 80 18 123/86 H 95 10/26/18 05:54 10/26/18 08:00 10/26/18 08:00 10/26/18 08:00 10/26/18 08:00 Laboratory Results 10/20/18 12:56 09/27/18 06:00 10/25/18 10/26/18 10/27/18 05:59 05:59 05:59 Intake Total 480 1910 250 Output Total 500 2200 Balance -20 -290 250 Physical Exam - Physical Exam General Appearance: WD/WN, alert, no apparent distress Respiratory: No respiratory distress, No accessory muscle use Skin: normal color, warm/dry Extremities: other (Trace edema bilateral pretibial) Neuro/Psych: alert, normal mood/affect, oriented x 3, motor weakness (Right upper extremity) ICD10 Worksheet Patient Problems: Problems Problem Status Onset Hypotension Acute Sepsis Acute Septic shock Acute Urinary tract infection Acute
[2018-10-26] MEDS: tiZANidine HCL 2 MG TAB PO SCH (22:07)
[2018-10-26] MEDS: ATORVASTATIN CALCIUM 20 MG TAB PO SCH (22:07)
[2018-10-26] MEDS: DICLOFENAC SODIUM 1% 100 GM GEL TP PRN (22:09)
[2018-10-26] MEDS: LIDOCAINE 4% 15 GM CREAM TP PRN (22:09)
[2018-10-26] MEDS: ACETAMINOPHEN 325 MG TAB PO PRN (22:14)
[2018-10-26] MEDS: MELATONIN 3 MG TAB PO PRN (22:14)
[2018-10-27] MEDS: CALCIUM CARBONATE 500 MG CHEWABLE TAB PO PRN (00:11)
[2018-10-27] MEDS: BACLOFEN 10 MG TAB PO SCH ×2 (05:36→18:18)
--- NOTE | 2018-10-27 09:27 | PCMIDPN ---
Assessment/Plan: 1. Kenzie vaginitis status post 5 days of fluconazole: Patient states that her symptoms are gone. No further treatment needed at this time. Infectious Disease will sign off. 2. Candiduria: This is almost certainly from vaginal contamination, and not veterans contact representative of a urinary tract infection given lack of symptoms. Subjective: Being wheeled into the gym for physical therapy. Patient is all smiles and tells me that she feels great. Vaginal symptoms are gone. Objective: Status post 5 days of fluconazole No fevers Vital Signs Temp Pulse Resp BP Pulse Ox 36.4 C 58 L 16 111/51 L 93 10/27/18 05:41 10/27/18 05:41 10/27/18 05:41 10/27/18 05:41 10/27/18 05:41 Laboratory Results 10/20/18 12:56 09/27/18 06:00 10/26/18 10/27/18 10/28/18 05:59 05:59 05:59 Intake Total 1910 1018 200 Output Total 2200 600 Balance -290 1018 -400 October 20: Urine with greater than 100,000 colonies of Enterococcus faecalis and 20,000 colonies of normal microbiota October 03: Urine with 8000 CFUs of kenzie metapsilosis - Physical Exam General Appearance: alert, no apparent distress EENT: pharynx normal, No thrush ICD10 Worksheet Patient Problems: Problems Problem Status Onset Hypotension Acute Sepsis Acute Septic shock Acute Urinary tract infection Acute
[2018-10-27] MEDS: MULTIVITAMINS 1 EACH TAB PO SCH (10:36)
[2018-10-27] MEDS: TAMSULOSIN HCL 0.4 MG CAP PO SCH (10:36)
[2018-10-27] MEDS: CHOLECALCIFEROL VIT D3 2,000 UNITS TAB/CAP PO SCH (10:37)
[2018-10-27] MEDS: ASPIRIN EC 81 MG TAB PO SCH (10:37)
[2018-10-27] MEDS: SENNOSIDES 1 TAB PO SCH ×2 (10:37→21:14)
[2018-10-27] MEDS: HYDROCHLOROTHIAZIDE 25 MG TAB PO SCH (10:39)
[2018-10-27] MEDS: BACLOFEN 20 MG TAB PO SCH (12:49)
--- NOTE | 2018-10-27 13:19 | SOAPPROG ---
SOAP Progress Note Assessment/Plan: Assessment: # Debility 2/2 severe sepsis and exacerbation of weakness from her MS, hospitalized 09/20/2018. * Initial functional independence measure his 49 on 09/28/2018, improved to 59 as of 10/02/2018, to 69 as of 10/08/2018 and to 82 as of 10/14/2018, and to 90 as of 10/21/2018. Standby assist to contact guard assist/Min assist for transfers depending on level of fatigue. Ambulates 120 ft with a front wheeled walker and contact guard assist. Can self propel wheelchair 150 ft. Independent with toileting and toilet transfer. Does grooming and hygiene with modified independence from the wheelchair. Upper body dressing requires minimal assist, lower body dressing requires minimal to moderate assist. Shower transfer requires close standby assist and she bathes with minimal assist. * Ambulation improved to standby assist with 4 wheel walker as of 10/26/2018. * Using external female a catheter at night and wishes to continue. Discussed goal of being able transfer to commode at night, 10/22/2018. * Continue PT and OT will optimize her ADLs, transfers, mobility and stair negotiation. # Neurogenic bladder. Had retention with postvoid residuals in the mid 200s as well as overactivity, and no sensation of bladder fullness. * Unlikely to be able to self catheterization due to issues with seated balance and reduced dexterity with her hands. * Initiated tamsulosin 09/30/2018. Has improved residuals with range of 65 to 170; previously had been mid 200s. * Continue rehabilitation bladder program. # Spasticity Takes baclofen and gets botox through neurology as outpt * Used baclofen PRN at home, 80-100 mg each day typically. * Scheduled baclofen 40 mg in AM before arising, 20 mg before lunch, and 40 mg before dinner, starting afternoon of 09/28/2018. * Trial of tizanidine 1 mg at HS starting 10/01/2018. It has helped her sleep but unclear if it has helped spasticity. Increased to 2 mg at HS starting 2018. Reports improvement in right hand/forearm neuropathic symptoms, and she slept better. No change in episodes of extensor spasm of the spine and legs, which can happen with movement after prolonged immobility such as when repositioning in bed at night. * Had been scheduled for Botox on 10/12. Unclear that she would need it with her current medications and level of function.. # Dysuria, 10/03/2018. New episode, 10/20/2018. * Given history of urosepsis, obtain CBC and UA 10/20/2018. No leukocytosis on CBC. UA weekly positive. Culture with Enterococcus faecalis. Appreciate assistance of Infectious Disease regarding whether she should be treated for UTI. * Trial of Diflucan ordered by Infectious Disease for presumed vulvar yeast infection. Symptoms have resolved. * Positive urinalysis, 10/03/2018, with white blood cells and leukocyte esterase. She denies symptoms currently, as of 10/04/2018. * Culture result 10/05/2018 with 8000 CFU yeast. No treatment indicated #Multiple Sclerosis * Usually receives PEG-interferon q2 weeks. Last due on 09/26. ID said OK to continue. * Patient reports she was interested in discontinuing. She says she typically has 3 days of weakness after an injection. * She will establish with new neurologist Dr. Aldana at [facility] November 27, 2018. * She plans to resume peg interferon after discharge from inpatient rehabilitation. She hopes to initiate a new medication which would not cause short-term weakness after administration, after follow-up with Neurology. 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 Symptoms relieved with Tums. Vitals were stable. * Had indeterminate troponins during hospitalization. EKGs x2 were consistent with possible old inferior wall [place] with Q-waves in AVF. Echocardiogram was normal but for mild mitral and tricuspid regurgitation. * Monitor were for recurrent symptoms. Will have low threshold for EKG and troponins versus transfer to emergency department. # Edema. She reports history of venous insufficiency in the left leg. She reports hydrochlorothiazide is prescribed for edema rather than for blood pressure. * Resume hydrochlorothiazide, 10/22/2018, per her request. * Continue compression stockings. Edema has responded well. * Weight and edema have been stable. Change weights from daily to every Friday. # Rash on right upper back. * PCR test negative for zoster. * Nursing using house skin lotion. # Sepsis 2/2 E.coli Bactermia/UTI - Finishing her Oral ABX cipro on 09/30 as per ID recs. - Continue to monitor for S/Sx of infection # Thrombocytopenia - Resolved as per labs on 09/27 and 325. # Transaminitis - Resolving per labs on 09/27 still slightly elevated ALT and AlkPhos # Anemia - Slightly drop on labs on 09/27. Improving on 09/28/2018. #History of LE DVT - Was on apixaban in 2016 was kept on ASA as prophylactic after that per patient - Held ASA and started on enoxaparin upon admission the rehabilitation unit.. - Mobility is much improved as of 10/21/2018. Will discontinue enoxaparin and resume aspirin, 10/22/2018. Per literature review, there is no indication for prison anticoagulation in multiple sclerosis. #Hyperlipidemia - Continue on Statin DISPOSITION: Attended staffing, 15 min, 10/21/2018. Discussed with case management, dietitian, pharmacist, nursing, PT, OT. works in [place] and is gone 12 hr a day. Goal sufficient independence to return home. 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 Tentative discharge date is 11/02/2018. # Follow Up * PCP * Neurologist Dr. Aldana at [facility]. * Consider evaluation by Urology regarding bladder function. 10/27/18 13:16 Subjective: Complaints. Feeling good. Enthusiastically about return to home soon. Objective: Vital Signs Temp Pulse Resp BP Pulse Ox 36.4 C 71 16 114/85 H 93 10/27/18 05:41 10/27/18 10:37 10/27/18 05:41 10/27/18 10:39 10/27/18 05:41 Laboratory Results 10/20/18 12:56 09/27/18 06:00 10/26/18 10/27/18 10/28/18 05:59 05:59 05:59 Intake Total 1910 1018 568 Output Total 2200 600 Balance -290 1018 -32 Physical Exam - Physical Exam General Appearance: WD/WN, alert, no apparent distress Respiratory: No respiratory distress, No accessory muscle use Skin: normal color, warm/dry Neuro/Psych: alert, normal mood/affect, oriented x 3, abnormal gait (Ambulating with 4 wheeled walker, right AFO. Reduced leg swing distance on right, moving slowly.) ICD10 Worksheet Patient Problems: Problems Problem Status Onset Hypotension Acute Sepsis Acute Septic shock Acute Urinary tract infection Acute
[2018-10-27] MEDS: ATORVASTATIN CALCIUM 20 MG TAB PO SCH (21:13)
[2018-10-27] MEDS: ACETAMINOPHEN 325 MG TAB PO PRN (21:14)
[2018-10-27] MEDS: tiZANidine HCL 2 MG TAB PO SCH (21:14)
[2018-10-27] MEDS: MELATONIN 3 MG TAB PO PRN (21:14)
[2018-10-27] MEDS: LIDOCAINE 4% 15 GM CREAM TP PRN (21:15)
[2018-10-27] MEDS: DICLOFENAC SODIUM 1% 100 GM GEL TP PRN (21:16)
[2018-10-28] MEDS: BACLOFEN 10 MG TAB PO SCH ×2 (06:31→18:11)
[2018-10-28] MEDS: SENNOSIDES 1 TAB PO SCH ×2 (08:13→21:12)
[2018-10-28] MEDS: ASPIRIN EC 81 MG TAB PO SCH (08:13)
[2018-10-28] MEDS: CHOLECALCIFEROL VIT D3 2,000 UNITS TAB/CAP PO SCH (08:14)
[2018-10-28] MEDS: MULTIVITAMINS 1 EACH TAB PO SCH (08:14)
[2018-10-28] MEDS: TAMSULOSIN HCL 0.4 MG CAP PO SCH (08:14)
[2018-10-28] MEDS: HYDROCHLOROTHIAZIDE 25 MG TAB PO SCH (08:14)
--- NOTE | 2018-10-28 11:56 | SOAPPROG ---
SOAP Progress Note Assessment/Plan: Assessment: # Debility 2/2 severe sepsis and exacerbation of weakness from her MS, hospitalized 09/20/2018. * Initial functional independence measure his 49 on 09/28/2018, improved to 59 as of 10/02/2018, to 69 as of 10/08/2018 to 82 as of 10/14/2018, to 90 as of 2018, and to 98 as of 10/28/2018. Has advanced from front wheeled walker to 4 wheeled walker. Did a car transfer with her requiring minimal assist. Ambulated 100 ft standby assist. Does grooming and hygiene seated with modified independence. Upper body dressing is independent. Lower body dressing requires minimal assist for shoes and AFO. Toilet transfer and toileting are done with modified independence. Shower transfer and bathing are done with standby assist. * Using external female a catheter at night and wishes to continue. * Continue PT and OT will optimize her ADLs, transfers, mobility and stair negotiation. # Neurogenic bladder. Had retention with postvoid residuals in the mid 200s as well as overactivity, and no sensation of bladder fullness. * Unlikely to be able to self catheterization due to issues with seated balance and reduced dexterity with her hands. * Initiated tamsulosin 09/30/2018. Has improved residuals with range of 65 to 170; previously had been mid 200s. * Continue rehabilitation bladder program. # Spasticity Takes baclofen and gets botox through neurology as outpt * Used baclofen PRN at home, 80-100 mg each day typically. * Scheduled baclofen 40 mg in AM before arising, 20 mg before lunch, and 40 mg before dinner, starting afternoon of 09/28/2018. * Trial of tizanidine 1 mg at HS starting 10/01/2018. It has helped her sleep but unclear if it has helped spasticity. Increased to 2 mg at HS starting 2018. Reports improvement in right hand/forearm neuropathic symptoms, and she slept better. No change in episodes of extensor spasm of the spine and legs, which can happen with movement after prolonged immobility such as when repositioning in bed at night. * Had been scheduled for Botox on 10/12. Unclear that she would need it with her current medications and level of function.. # Dysuria, 10/03/2018. New episode, 10/20/2018. * Given history of urosepsis, obtain CBC and UA 10/20/2018. No leukocytosis on CBC. UA weekly positive. Culture with Enterococcus faecalis. Appreciate assistance of Infectious Disease regarding whether she should be treated for UTI. * Trial of Diflucan ordered by Infectious Disease for presumed vulvar yeast infection. Symptoms have resolved. * Positive urinalysis, 10/03/2018, with white blood cells and leukocyte esterase. She denies symptoms currently, as of 10/04/2018. * Culture result 10/05/2018 with 8000 CFU yeast. No treatment indicated #Multiple Sclerosis * Usually receives PEG-interferon q2 weeks. Last due on 09/26. ID said OK to continue. * Patient reports she was interested in discontinuing. She says she typically has 3 days of weakness after an injection. * She will establish with new neurologist Dr. Aldana at [facility] November 27, 2018. * She plans to resume peg interferon after discharge from inpatient rehabilitation. She hopes to initiate a new medication which would not cause short-term weakness after administration, after follow-up with Neurology. 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 Symptoms relieved with Tums. Vitals were stable. * Had indeterminate troponins during hospitalization. 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 Echocardiogram was normal but for mild mitral and tricuspid regurgitation. * Monitor were for recurrent symptoms. Will have low threshold for EKG and troponins versus transfer to emergency department. # Edema. She reports history of venous insufficiency in the left leg. She reports hydrochlorothiazide is prescribed for edema rather than for blood pressure. * Resume hydrochlorothiazide, 10/22/2018, per her request. * Continue compression stockings. Edema has responded well. * Weight and edema have been stable. Change weights from daily to every Friday. # Rash on right upper back. * PCR test negative for zoster. * Nursing using house skin lotion. # Sepsis 2/2 E.coli Bactermia/UTI - Finishing her Oral ABX cipro on 09/30 as per ID recs. - Continue to monitor for S/Sx of infection # Thrombocytopenia - Resolved as per labs on 09/27 and 325. # Transaminitis - Resolving per labs on 09/27 still slightly elevated ALT and AlkPhos # Anemia - Slightly drop on labs on 09/27. Improving on 09/28/2018. #History of LE DVT - Was on apixaban in 2016 was kept on ASA as prophylactic after that per patient - Held ASA and started on enoxaparin upon admission the rehabilitation unit.. - Mobility is much improved as of 10/21/2018. Will discontinue enoxaparin and resume aspirin, 10/22/2018. Per literature review, there is no indication for bed bug exterminator anticoagulation in multiple sclerosis. #Hyperlipidemia - Continue on Statin DISPOSITION: Attended staffing, 15 min, 10/28/2018. Discussed with case management, dietitian, pharmacist, nursing, PT, OT. works in [place] and is gone 12 hr a day. Daughter from out of town will be available locally for some time. Goal sufficient independence to return home. 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 Discharge date is 11/02/2018. # Follow Up * PCP * Neurologist Dr. Aldana at [facility]. * Consider evaluation by Urology regarding bladder function. 10/28/18 11:53 Subjective: No complaints. Feels she is doing better every day. Still needs to improve core strength and endurance. Sleeping well. Appreciates the use of topical lidocaine to her right hand had bedtime. Nurse reported she needed her briefs changed overnight and that external female catheter may not have been placed correctly. Objective: Vital Signs Temp Pulse Resp BP Pulse Ox 36.6 C 57 L 16 134/75 H 92 10/28/18 06:14 10/28/18 06:14 10/28/18 06:14 10/28/18 08:15 10/28/18 06:14 Laboratory Results 10/20/18 12:56 09/27/18 06:00 10/27/18 10/28/18 10/29/18 05:59 05:59 05:59 Intake Total 1018 1728 Output Total 1600 Balance 1018 128 Physical Exam - Physical Exam General Appearance: WD/WN, alert, no apparent distress Respiratory: No respiratory distress, No accessory muscle use Cardiac/Chest: No edema Skin: normal color, warm/dry Neuro/Psych: alert, normal mood/affect, oriented x 3, abnormal gait (With 4 wheeled walker, contact guard by PT, slow, right foot everted, flexed bilaterally at hips and knees), motor weakness (Right upper extremity) ICD10 Worksheet Patient Problems: Problems Problem Status Onset Hypotension Acute Sepsis Acute Septic shock Acute Urinary tract infection Acute
[2018-10-28] MEDS: BACLOFEN 20 MG TAB PO SCH (12:24)
[2018-10-28] MEDS: tiZANidine HCL 2 MG TAB PO SCH (21:12)
[2018-10-28] MEDS: ATORVASTATIN CALCIUM 20 MG TAB PO SCH (21:12)
[2018-10-28] MEDS: LIDOCAINE 4% 15 GM CREAM TP PRN (21:12)
[2018-10-28] MEDS: DICLOFENAC SODIUM 1% 100 GM GEL TP PRN (21:12)
[2018-10-29] MEDS: BACLOFEN 10 MG TAB PO SCH ×2 (05:21→17:36)
[2018-10-29] MEDS: ASPIRIN EC 81 MG TAB PO SCH (08:54)
[2018-10-29] MEDS: MULTIVITAMINS 1 EACH TAB PO SCH (08:54)
[2018-10-29] MEDS: CHOLECALCIFEROL VIT D3 2,000 UNITS TAB/CAP PO SCH (08:54)
[2018-10-29] MEDS: TAMSULOSIN HCL 0.4 MG CAP PO SCH (08:54)
[2018-10-29] MEDS: HYDROCHLOROTHIAZIDE 25 MG TAB PO SCH (08:54)
[2018-10-29] MEDS: SENNOSIDES 1 TAB PO SCH ×2 (08:54→21:22)
--- NOTE | 2018-10-29 11:18 | SOAPPROG ---
SOAP Progress Note Assessment/Plan: Assessment: # Debility 2/2 severe sepsis and exacerbation of weakness from her MS, hospitalized 09/20/2018. * Initial functional independence measure his 49 on 09/28/2018, improved to 59 as of 10/02/2018, to 69 as of 10/08/2018 to 82 as of 10/14/2018, to 90 as of 2018, and to 98 as of 10/28/2018. Has advanced from front wheeled walker to 4 wheeled walker. Did a car transfer with her requiring minimal assist. Ambulated 100 ft standby assist. Does grooming and hygiene seated with modified independence. Upper body dressing is independent. Lower body dressing requires minimal assist for shoes and AFO. Toilet transfer and toileting are done with modified independence. Shower transfer and bathing are done with standby assist. * Using external female a catheter at night and wishes to continue. * Continue PT and OT will optimize her ADLs, transfers, mobility and stair negotiation. # Neurogenic bladder. Had retention with postvoid residuals in the mid 200s as well as overactivity, and no sensation of bladder fullness. * Unlikely to be able to self catheterization due to issues with seated balance and reduced dexterity with her hands. * Initiated tamsulosin 09/30/2018. Has improved residuals with range of 65 to 170; previously had been mid 200s. * Continue rehabilitation bladder program. # Spasticity Takes baclofen and gets botox through neurology as outpt * Used baclofen PRN at home, 80-100 mg each day typically. * Scheduled baclofen 40 mg in AM before arising, 20 mg before lunch, and 40 mg before dinner, starting afternoon of 09/28/2018. * Trial of tizanidine 1 mg at HS starting 10/01/2018. It has helped her sleep but unclear if it has helped spasticity. Increased to 2 mg at HS starting 2018. Reports improvement in right hand/forearm neuropathic symptoms, and she slept better. No change in episodes of extensor spasm of the spine and legs, which can happen with movement after prolonged immobility such as when repositioning in bed at night. * Had been scheduled for Botox on 10/12. Unclear that she would need it with her current medications and level of function.. # Dysuria, 10/03/2018. New episode, 10/20/2018. * Given history of urosepsis, obtain CBC and UA 10/20/2018. No leukocytosis on CBC. UA weekly positive. Culture with Enterococcus faecalis. Appreciate assistance of Infectious Disease regarding whether she should be treated for UTI. * Trial of Diflucan ordered by Infectious Disease for presumed vulvar yeast infection. Symptoms have resolved. * Positive urinalysis, 10/03/2018, with white blood cells and leukocyte esterase. She denies symptoms currently, as of 10/04/2018. * Culture result 10/05/2018 with 8000 CFU yeast. No treatment indicated #Multiple Sclerosis * Usually receives PEG-interferon q2 weeks. Last due on 09/26. ID said OK to continue. * Patient reports she was interested in discontinuing. She says she typically has 3 days of weakness after an injection. * She will establish with new neurologist Dr. Aldana at [facility] November 27, 2018. * She plans to resume peg interferon after discharge from inpatient rehabilitation. She hopes to initiate a new medication which would not cause short-term weakness after administration, after follow-up with Neurology. 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 Symptoms relieved with Tums. Vitals were stable. * Had indeterminate troponins during hospitalization. 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 Echocardiogram was normal but for mild mitral and tricuspid regurgitation. * Monitor were for recurrent symptoms. Will have low threshold for EKG and troponins versus transfer to emergency department. # Edema. She reports history of venous insufficiency in the left leg. She reports hydrochlorothiazide is prescribed for edema rather than for blood pressure. * Resume hydrochlorothiazide, 10/22/2018, per her request. * Continue compression stockings. Edema has responded well. * Weight and edema have been stable. Change weights from daily to every Friday. # Rash on right upper back. * PCR test negative for zoster. * Nursing using house skin lotion. # Sepsis 2/2 E.coli Bactermia/UTI - Finishing her Oral ABX cipro on 09/30 as per ID recs. - Continue to monitor for S/Sx of infection # Thrombocytopenia - Resolved as per labs on 09/27 and 325. # Transaminitis - Resolving per labs on 09/27 still slightly elevated ALT and AlkPhos # Anemia - Slightly drop on labs on 09/27. Improving on 09/28/2018. #History of LE DVT - Was on apixaban in 2016 was kept on ASA as prophylactic after that per patient - Held ASA and started on enoxaparin upon admission the rehabilitation unit.. - Mobility is much improved as of 10/21/2018. Will discontinue enoxaparin and resume aspirin, 10/22/2018. Per literature review, there is no indication for oil heaterman anticoagulation in multiple sclerosis. #Hyperlipidemia - Continue on Statin DISPOSITION: Attended staffing, 15 min, 10/28/2018. Discussed with case management, dietitian, pharmacist, nursing, PT, OT. works in [place] and is gone 12 hr a day. Daughter from out of town will be available locally for some time. Goal sufficient independence to return home. 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 Discharge date is 11/02/2018. # Follow Up * PCP * Neurologist Dr. Aldana at [facility]. * Consider evaluation by Urology regarding bladder function. 10/29/18 11:16 Subjective: No complaints. Abdominal pain of yesterday, left lower, resolved after bowel movement. No fevers or chills, no cough or dyspnea. No dysuria. Objective: Vital Signs Temp Pulse Resp BP Pulse Ox 36.6 C 66 18 120/72 92 10/29/18 05:31 10/29/18 05:31 10/29/18 05:31 10/29/18 08:54 10/28/18 20:00 Laboratory Results 10/20/18 12:56 09/27/18 06:00 10/28/18 10/29/18 10/30/18 05:59 05:59 05:59 Intake Total 1728 760 730 Output Total 1600 500 Balance 128 260 730 Physical Exam - Physical Exam General Appearance: WD/WN, alert, no apparent distress Respiratory: No respiratory distress, No accessory muscle use Skin: normal color, warm/dry Neuro/Psych: alert, normal mood/affect, oriented x 3, abnormal gait (Ambulating with 4 wheeled walker accompanied by physical therapist. Narrow base of support , slightly flexed at hips and knees. Much reduced hip flexion on the right. AFO on the right. Raises right hip in order to facilitate forward leg swing.), motor weakness ICD10 Worksheet Patient Problems: Problems Problem Status Onset Hypotension Acute Sepsis Acute Septic shock Acute Urinary tract infection Acute
[2018-10-29] MEDS: BACLOFEN 20 MG TAB PO SCH (12:07)
[2018-10-29] MEDS: POLYETHYLENE GLYCOL 3350 17 GM PKT PO PRN (19:11)
[2018-10-29] MEDS: tiZANidine HCL 2 MG TAB PO SCH (21:22)
[2018-10-29] MEDS: ATORVASTATIN CALCIUM 20 MG TAB PO SCH (21:23)
[2018-10-29] MEDS: MELATONIN 3 MG TAB PO PRN (22:39)
[2018-10-29] MEDS: ACETAMINOPHEN 325 MG TAB PO PRN (22:39)
[2018-10-30] MEDS: BACLOFEN 10 MG TAB PO SCH ×2 (05:48→17:42)
[2018-10-30] MEDS: MULTIVITAMINS 1 EACH TAB PO SCH (07:31)
[2018-10-30] MEDS: HYDROCHLOROTHIAZIDE 25 MG TAB PO SCH (07:31)
[2018-10-30] MEDS: CHOLECALCIFEROL VIT D3 2,000 UNITS TAB/CAP PO SCH (07:31)
[2018-10-30] MEDS: ASPIRIN EC 81 MG TAB PO SCH (07:31)
[2018-10-30] MEDS: TAMSULOSIN HCL 0.4 MG CAP PO SCH (07:31)
[2018-10-30] MEDS: SENNOSIDES 1 TAB PO SCH ×2 (07:31→21:33)
--- NOTE | 2018-10-30 12:07 | SOAPPROG ---
SOAP Progress Note Assessment/Plan: Assessment: # Debility 2/2 severe sepsis and exacerbation of weakness from her MS, hospitalized 09/20/2018. * Initial functional independence measure his 49 on 09/28/2018, improved to 59 as of 10/02/2018, to 69 as of 10/08/2018 to 82 as of 10/14/2018, to 90 as of 2018, and to 98 as of 10/28/2018. Has advanced from front wheeled walker to 4 wheeled walker. Did a car transfer with her requiring minimal assist. Ambulated 100 ft standby assist. Does grooming and hygiene seated with modified independence. Upper body dressing is independent. Lower body dressing requires minimal assist for shoes and AFO. Toilet transfer and toileting are done with modified independence. Shower transfer and bathing are done with standby assist. * Using external female a catheter at night and wishes to continue. * Continue PT and OT will optimize her ADLs, transfers, mobility and stair negotiation. # Neurogenic bladder. Had retention with postvoid residuals in the mid 200s as well as overactivity, and no sensation of bladder fullness. * Unlikely to be able to self catheterization due to issues with seated balance and reduced dexterity with her hands. * Initiated tamsulosin 09/30/2018. Has improved residuals with range of 65 to 170; previously had been mid 200s. * Continue rehabilitation bladder program. # Spasticity Takes baclofen and gets botox through neurology as outpt * Used baclofen PRN at home, 80-100 mg each day typically. * Scheduled baclofen 40 mg in AM before arising, 20 mg before lunch, and 40 mg before dinner, starting afternoon of 09/28/2018. * Trial of tizanidine 1 mg at HS starting 10/01/2018. It has helped her sleep but unclear if it has helped spasticity. Increased to 2 mg at HS starting 2018. Reports improvement in right hand/forearm neuropathic symptoms, and she slept better. No change in episodes of extensor spasm of the spine and legs, which can happen with movement after prolonged immobility such as when repositioning in bed at night. * Had been scheduled for Botox on 10/12. Unclear that she would need it with her current medications and level of function.. # Dysuria, 10/03/2018. New episode, 10/20/2018. * Given history of urosepsis, obtain CBC and UA 10/20/2018. No leukocytosis on CBC. UA weekly positive. Culture with Enterococcus faecalis. Appreciate assistance of Infectious Disease regarding whether she should be treated for UTI. * Trial of Diflucan ordered by Infectious Disease for presumed vulvar yeast infection. Symptoms have resolved. * Positive urinalysis, 10/03/2018, with white blood cells and leukocyte esterase. She denies symptoms currently, as of 10/04/2018. * Culture result 10/05/2018 with 8000 CFU yeast. No treatment indicated #Multiple Sclerosis * Usually receives PEG-interferon q2 weeks. Last due on 09/26. ID said OK to continue. * Patient reports she was interested in discontinuing. She says she typically has 3 days of weakness after an injection. * She will establish with new neurologist Dr. Aldana at [facility] November 27, 2018. * She plans to resume peg interferon after discharge from inpatient rehabilitation. She hopes to initiate a new medication which would not cause short-term weakness after administration, after follow-up with Neurology. 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 Symptoms relieved with Tums. Vitals were stable. * Had indeterminate troponins during hospitalization. 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 Echocardiogram was normal but for mild mitral and tricuspid regurgitation. * Monitor were for recurrent symptoms. Will have low threshold for EKG and troponins versus transfer to emergency department. # Edema. She reports history of venous insufficiency in the left leg. She reports hydrochlorothiazide is prescribed for edema rather than for blood pressure. * Resume hydrochlorothiazide, 10/22/2018, per her request. * Continue compression stockings. Edema has responded well. * Weight and edema have been stable. Change weights from daily to every Friday. # Rash on right upper back. * PCR test negative for zoster. * Nursing using house skin lotion. # Sepsis 2/2 E.coli Bactermia/UTI - Finishing her Oral ABX cipro on 09/30 as per ID recs. - Continue to monitor for S/Sx of infection # Thrombocytopenia - Resolved as per labs on 09/27 and 325. # Transaminitis - Resolving per labs on 09/27 still slightly elevated ALT and AlkPhos # Anemia - Slightly drop on labs on 09/27. Improving on 09/28/2018. #History of LE DVT - Was on apixaban in 2016 was kept on ASA as prophylactic after that per patient - Held ASA and started on enoxaparin upon admission the rehabilitation unit.. - Mobility is much improved as of 10/21/2018. Will discontinue enoxaparin and resume aspirin, 10/22/2018. Per literature review, there is no indication for terminal worker anticoagulation in multiple sclerosis. #Hyperlipidemia - Continue on Statin DISPOSITION: Attended staffing, 15 min, 10/28/2018. Discussed with case management, dietitian, pharmacist, nursing, PT, OT. works in [place] and is gone 12 hr a day. Daughter from out of town will be available locally for some time. Goal sufficient independence to return home. 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 Discharge date is 11/02/2018. # Follow Up * PCP * Neurologist Dr. Aldana at [facility]. * Consider evaluation by Urology regarding bladder function. 10/30/18 12:06 Subjective: No complaints. Sleeping well. No cough or dyspnea, no fevers or chills, no dysuria. Objective: Vital Signs Temp Pulse Resp BP Pulse Ox 36.6 C 72 16 99/63 L 94 10/30/18 05:53 10/30/18 05:53 10/30/18 05:53 10/30/18 05:53 10/30/18 05:53 Laboratory Results 10/20/18 12:56 09/27/18 06:00 10/29/18 10/30/18 10/31/18 05:59 05:59 05:59 Intake Total 760 1530 Output Total 500 300 500 Balance 260 1230 -500 Physical Exam - Physical Exam General Appearance: WD/WN, alert Respiratory: normal breath sounds, No crackles, No rhonchi, No wheezing Cardiac/Chest: regular rate, rhythm, edema (Or trace right pretibial), No diastolic murmur, No systolic murmur Skin: normal color, warm/dry Neuro/Psych: alert, normal mood/affect, oriented x 3 ICD10 Worksheet Patient Problems: Problems Problem Status Onset Hypotension Acute Sepsis Acute Septic shock Acute Urinary tract infection Acute
[2018-10-30] MEDS: BACLOFEN 20 MG TAB PO SCH (13:09)
[2018-10-30] MEDS: ATORVASTATIN CALCIUM 20 MG TAB PO SCH (21:33)
[2018-10-30] MEDS: MELATONIN 3 MG TAB PO PRN (21:33)
[2018-10-30] MEDS: tiZANidine HCL 2 MG TAB PO SCH (21:34)
[2018-10-30] MEDS: LIDOCAINE 4% 15 GM CREAM TP PRN (21:34)
[2018-10-30] MEDS: DICLOFENAC SODIUM 1% 100 GM GEL TP PRN (21:35)
[2018-10-31] MEDS: BACLOFEN 10 MG TAB PO SCH ×2 (06:15→17:45)
[2018-10-31] MEDS: SENNOSIDES 1 TAB PO SCH ×2 (08:57→21:40)
[2018-10-31] MEDS: ASPIRIN EC 81 MG TAB PO SCH (08:57)
[2018-10-31] MEDS: CHOLECALCIFEROL VIT D3 2,000 UNITS TAB/CAP PO SCH (08:57)
[2018-10-31] MEDS: HYDROCHLOROTHIAZIDE 25 MG TAB PO SCH (08:57)
[2018-10-31] MEDS: MULTIVITAMINS 1 EACH TAB PO SCH (08:57)
[2018-10-31] MEDS: TAMSULOSIN HCL 0.4 MG CAP PO SCH (08:57)
--- NOTE | 2018-10-31 10:26 | SOAPPROG ---
SOAP Progress Note Assessment/Plan: Assessment/Plan: Debility 2/2 severe sepsis and exacerbation of weakness from her MS, hospitalized 09/20/2018. * Initial functional independence measure his 49 on 09/28/2018, improved to 59 as of 10/02/2018, to 69 as of 10/08/2018 to 82 as of 10/14/2018, to 90 as of 2018, and to 98 as of 10/28/2018. Has advanced from front wheeled walker to 4 wheeled walker. Did a car transfer with her requiring minimal assist. Ambulated 100 ft standby assist. Does grooming and hygiene seated with modified independence. Upper body dressing is independent. Lower body dressing requires minimal assist for shoes and AFO. Toilet transfer and toileting are done with modified independence. Shower transfer and bathing are done with standby assist. * Using external female catheter at night and wishes to continue. * Continue PT and OT will optimize her ADLs, transfers, mobility and stair negotiation. # Neurogenic bladder. Had retention with postvoid residuals in the mid 200s as well as overactivity, and no sensation of bladder fullness. * Unlikely to be able to self catheterization due to issues with seated balance and reduced dexterity with her hands. * Initiated tamsulosin 09/30/2018. Has improved residuals with range of 65 to 170; previously had been mid 200s. * Continue rehabilitation bladder program. # Spasticity Takes baclofen and gets botox through neurology as outpt * Used baclofen PRN at home, 80-100 mg each day typically. * Scheduled baclofen 40 mg in AM before arising, 20 mg before lunch, and 40 mg before dinner, starting afternoon of 09/28/2018. * Trial of tizanidine 1 mg at HS starting 10/01/2018. It has helped her sleep but unclear if it has helped spasticity. Increased to 2 mg at HS starting 2018. Reports improvement in right hand/forearm neuropathic symptoms, and she slept better. No change in episodes of extensor spasm of the spine and legs, which can happen with movement after prolonged immobility such as when repositioning in bed at night. * Had been scheduled for Botox on 10/12. # Dysuria, 10/03/2018. New episode, 10/20/2018 that has resolved. More consistent with yeast infection likely * Given history of urosepsis, obtain CBC and UA 10/20/2018. No leukocytosis on CBC. UA weekly positive. Culture with Enterococcus faecalis. Appreciate assistance of Infectious Disease regarding whether she should be treated for UTI. * Trial of Diflucan ordered by Infectious Disease for presumed vulvar yeast infection. Symptoms have resolved. * Positive urinalysis, 10/03/2018, with white blood cells and leukocyte esterase. She denies symptoms currently, as of 10/04/2018. * Culture result 10/05/2018 with 8000 CFU yeast. No treatment indicated - ID signed off on 10/29 #Multiple Sclerosis * Usually receives PEG-interferon q2 weeks. Last due on 09/26. ID said OK to continue. * Patient reports she was interested in discontinuing. She says she typically has 3 days of weakness after an injection. * She will establish with new neurologist Dr. Aldana at [facility] November 27, 2018. * She plans to resume peg interferon after discharge from inpatient rehabilitation. She hopes to initiate a new medication which would not cause short-term weakness after administration, after follow-up with Neurology. 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 Symptoms relieved with Tums. Vitals were stable. * Had indeterminate troponins during hospitalization. 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 Echocardiogram was normal but for mild mitral and tricuspid regurgitation. * Monitor were for recurrent symptoms. Will have low threshold for EKG and troponins # Edema. She reports history of venous insufficiency in the left leg. She reports hydrochlorothiazide is prescribed for edema rather than for blood pressure. * Resume hydrochlorothiazide, 10/22/2018, per her request. * Continue compression stockings. Edema has responded well. * Weight and edema have been stable. Change weights from daily to every Friday. # Rash on right upper back. * PCR test negative for zoster. * Nursing using house skin lotion. # Sepsis 2/2 E.coli Bactermia/UTI * Finished her Oral ABX cipro on 09/30 as per ID recs. * Continue to monitor for S/Sx of infection # Thrombocytopenia * Resolved as per labs on 09/27 and 325. # Transaminitis * Resolving per labs on 09/27 - monitor symptoms and check prn # Anemia * Slight drop on labs on 09/27. Improving on 09/28/2018. #History of LE DVT * Was on apixaban in 2016 was kept on ASA as prophylactic after that per patient * Held ASA and started on enoxaparin upon admission the rehabilitation unit.. * Mobility is much improved as of 10/21/2018. Will discontinue enoxaparin and resume aspirin, 10/22/2018. Per literature review, there is no indication for keno terminal operator anticoagulation in multiple sclerosis. #Hyperlipidemia * Continue on Statin DISPOSITION: works in [place] and is gone 12 hr a day. Daughter from out of town will be available locally for some time. Goal sufficient independence to return home. 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 Discharge date is 11/02/2018. # Follow Up * PCP * Neurologist Dr. Aldana at [facility]. * Consider evaluation by Urology regarding bladder function. 10/31/18 10:21 Subjective: Doing well this morning - Very anxious to be returning back home soon. No further symptoms of burning when urinating or in vaginal area. Feeling very happy with the care she has received and the improvement she has made. Her daughter will be supporting her in the interim while she transitions to home. Objective: Vital Signs Temp Pulse Resp BP Pulse Ox 98.1 F 81 18 101/71 92 10/31/18 08:00 10/31/18 08:00 10/31/18 08:00 10/31/18 08:00 10/31/18 08:00 Laboratory Results 10/20/18 12:56 09/27/18 06:00 10/30/18 10/31/18 11/01/18 05:59 05:59 05:59 Intake Total 1530 1000 360 Output Total 300 1050 Balance 1230 -50 360 Physical Exam - Physical Exam General Appearance: alert, no apparent distress, other (Sitting in her chair in her room. ) EENT: PERRL/EOMI Respiratory: lungs clear, normal breath sounds Cardiac/Chest: regular rate, rhythm Abdomen: normal bowel sounds, non-tender Skin: normal color Neuro/Psych: alert, normal mood/affect ICD10 Worksheet Patient Problems: Problems Problem Status Onset Hypotension Acute Sepsis Acute Septic shock Acute Urinary tract infection Acute
[2018-10-31] MEDS: BACLOFEN 20 MG TAB PO SCH (12:21)
[2018-10-31] MEDS: MELATONIN 3 MG TAB PO PRN (21:40)
[2018-10-31] MEDS: ACETAMINOPHEN 325 MG TAB PO PRN (21:40)
[2018-10-31] MEDS: ATORVASTATIN CALCIUM 20 MG TAB PO SCH (21:40)
[2018-10-31] MEDS: tiZANidine HCL 2 MG TAB PO SCH (21:40)
[2018-11-01] MEDS: BACLOFEN 10 MG TAB PO SCH ×2 (06:12→18:02)
[2018-11-01] MEDS: TAMSULOSIN HCL 0.4 MG CAP PO SCH (07:34)
[2018-11-01] MEDS: CHOLECALCIFEROL VIT D3 2,000 UNITS TAB/CAP PO SCH (07:34)
[2018-11-01] MEDS: ASPIRIN EC 81 MG TAB PO SCH (07:34)
[2018-11-01] MEDS: SENNOSIDES 1 TAB PO SCH ×2 (07:35→21:38)
[2018-11-01] MEDS: HYDROCHLOROTHIAZIDE 25 MG TAB PO SCH (07:35)
[2018-11-01] MEDS: MULTIVITAMINS 1 EACH TAB PO SCH (07:35)
--- NOTE | 2018-11-01 09:51 | SOAPPROG ---
SOAP Progress Note Assessment/Plan: Assessment/Plan: #Debility 2/2 severe sepsis and exacerbation of weakness from her MS, hospitalized 09/20/2018. * Initial functional independence measure his 49 on 09/28/2018, improved to 59 as of 10/02/2018, to 69 as of 10/08/2018 to 82 as of 10/14/2018, to 90 as of 2018, and to 98 as of 10/28/2018. Has advanced from front wheeled walker to 4 wheeled walker. Did a car transfer with her requiring minimal assist. Ambulated 100 ft standby assist. Does grooming and hygiene seated with modified independence. Upper body dressing is independent. Lower body dressing requires minimal assist for shoes and AFO. Toilet transfer and toileting are done with modified independence. Shower transfer and bathing are done with standby assist. * Using external female catheter at night and has already purchased one for home use - Has been very beneficial for sleep maintenance * Continue PT and OT will optimize her ADLs, transfers, mobility and stair negotiation. # Neurogenic bladder. Had retention with postvoid residuals in the mid 200s as well as overactivity, and no sensation of bladder fullness. * Unlikely to be able to self catheterization due to issues with seated balance and reduced dexterity with her hands. * Initiated tamsulosin 09/30/2018. Has improved residuals with range of 65 to 170; previously had been mid 200s. * Continue rehabilitation bladder program. # Spasticity Takes baclofen and gets botox through neurology as outpt * Used baclofen PRN at home, 80-100 mg each day typically. * Scheduled baclofen 40 mg in AM before arising, 20 mg before lunch, and 40 mg before dinner, starting afternoon of 09/28/2018. * Trial of tizanidine 1 mg at HS starting 10/01/2018. It has helped her sleep but unclear if it has helped spasticity. Increased to 2 mg at HS starting 2018. Reports improvement in right hand/forearm neuropathic symptoms, and she slept better. No change in episodes of extensor spasm of the spine and legs, which can happen with movement after prolonged immobility such as when repositioning in bed at night. * Had been scheduled for Botox on 10/12 - will reinitiate with Neurology once d/c' d for ongoing management. # Dysuria, 10/03/2018. New episode, 10/20/2018 that has resolved. More consistent with yeast infection likely * Given history of urosepsis, obtain CBC and UA 10/20/2018. No leukocytosis on CBC. UA weekly positive. Culture with Enterococcus faecalis. Appreciate assistance of Infectious Disease regarding whether she should be treated for UTI. * Trial of Diflucan ordered by Infectious Disease for presumed vulvar yeast infection. Symptoms have resolved. * Positive urinalysis, 10/03/2018, with white blood cells and leukocyte esterase. She denies symptoms currently, as of 10/04/2018. * Culture result 10/05/2018 with 8000 CFU yeast. No treatment indicated - ID signed off on 10/29 #Multiple Sclerosis * Usually receives PEG-interferon q2 weeks. Last due on 09/26. ID said OK to continue. * Patient reports she was interested in discontinuing. She says she typically has 3 days of weakness after an injection. * She will establish with new neurologist Dr. Aldana at [facility] November 27, 2018. * She plans to resume peg interferon after discharge from inpatient rehabilitation. She hopes to initiate a new medication which would not cause short-term weakness after administration, after follow-up with Neurology. 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 Symptoms relieved with Tums. Vitals were stable. * Had indeterminate troponins during hospitalization. 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 Echocardiogram was normal but for mild mitral and tricuspid regurgitation. * Monitor were for recurrent symptoms. Will have low threshold for EKG and troponins # Edema. She reports history of venous insufficiency in the left leg. She reports hydrochlorothiazide is prescribed for edema rather than for blood pressure. * Resume hydrochlorothiazide, 10/22/2018, per her request. * Continue compression stockings. Edema has responded well. * Weight and edema have been stable. Change weights from daily to every Friday. # Rash on right upper back. * PCR test negative for zoster. * Nursing using house skin lotion. # Sepsis 2/2 E.coli Bactermia/UTI * Finished her Oral ABX (cipro) on 09/30 as per ID recs. * Continue to monitor for S/Sx of infection # Thrombocytopenia * Resolved as per labs on 09/27 and 09/28. # Transaminitis * Resolving per labs on 09/27 - monitor symptoms and check prn # Anemia * Slight drop on labs on 09/27. Improving on 09/28/2018. #History of LE DVT * Was on apixaban in 2016 was kept on ASA as prophylactic after that per patient * Held ASA and started on enoxaparin upon admission the rehabilitation unit.. * Mobility is much improved as of 10/21/2018. Will discontinue enoxaparin and resume aspirin, 10/22/2018. Per literature review, there is no indication for message broker developer anticoagulation in multiple sclerosis. #Hyperlipidemia * Continue on Statin DISPOSITION: works in [place] and is gone 12 hr a day. Daughter is flying in from [place] and staying for 1 week. Goal sufficient independence to return home. 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 Discharge date is 2018. # Follow Up * PCP * Neurologist Dr. Aldana at [facility]. * Consider evaluation by Urology regarding bladder function. 11/01/18 09:53 Subjective: Feeling so excited about her upcoming D/c on Friday - Has appreciated the attention and support that has been needed to make this recovery but is ready to be home. 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 She is very thoughtful and so insightful to her abilities/limitations. No new fevers/chills, no new neurologic changes. Objective: Vital Signs Temp Pulse Resp BP Pulse Ox 97.9 F 72 16 112/74 92 11/01/18 06:17 11/01/18 06:17 11/01/18 06:17 11/01/18 07:35 11/01/18 06:17 Laboratory Results 10/20/18 12:56 09/27/18 06:00 10/31/18 11/01/18 11/02/18 05:59 05:59 05:59 Intake Total 1000 1360 240 Output Total 1050 400 700 Balance -50 960 -460 Physical Exam - Physical Exam General Appearance: alert, no apparent distress, other (evaluated in her room - she was sitting in her wheelchair) EENT: PERRL/EOMI, other (Great dentition) Respiratory: lungs clear, normal breath sounds Cardiac/Chest: regular rate, rhythm Abdomen: normal bowel sounds, non-tender Skin: normal color Neuro/Psych: alert, normal mood/affect, oriented x 3 ICD10 Worksheet Patient Problems: Problems Problem Status Onset Hypotension Acute Sepsis Acute Septic shock Acute Urinary tract infection Acute
[2018-11-01] MEDS: BACLOFEN 20 MG TAB PO SCH (11:48)
[2018-11-01] MEDS: ACETAMINOPHEN 325 MG TAB PO PRN (21:37)
[2018-11-01] MEDS: tiZANidine HCL 2 MG TAB PO SCH (21:38)
[2018-11-01] MEDS: MELATONIN 3 MG TAB PO PRN (21:38)
[2018-11-01] MEDS: ATORVASTATIN CALCIUM 20 MG TAB PO SCH (21:38)
[2018-11-01] MEDS: LIDOCAINE 4% 15 GM CREAM TP PRN (21:47)
[2018-11-01] MEDS: DICLOFENAC SODIUM 1% 100 GM GEL TP PRN (21:48)
[2018-11-02] MEDS: BACLOFEN 10 MG TAB PO SCH (05:57)
[2018-11-02] MEDS: HYDROCHLOROTHIAZIDE 25 MG TAB PO SCH (08:24)
[2018-11-02] MEDS: ASPIRIN EC 81 MG TAB PO SCH (08:24)
[2018-11-02] MEDS: CHOLECALCIFEROL VIT D3 2,000 UNITS TAB/CAP PO SCH (08:24)
[2018-11-02] MEDS: SENNOSIDES 1 TAB PO SCH (08:24)
[2018-11-02] MEDS: MULTIVITAMINS 1 EACH TAB PO SCH (08:25)
[2018-11-02] MEDS: TAMSULOSIN HCL 0.4 MG CAP PO SCH (08:25)
[2018-11-02 08:29] VITALS: BP 108/66
--- NOTE | 2018-11-02 09:58 | PDOREHIP ---
Admission [facility] - Admission - 3 Day Assessment Period Admission Date/Day 1: 09/26/18 Day 2: 09/27/18 Day 3: 09/28/18 - Active Diagnoses Comorbidities and Co-existing Conditions at Admission: 98755. None of the Above Discharge [facility] - Discharge - 3 Day Assessment Period 2 Days Prior to Anticipated Discharge Date: 10/31/18 1 Day Prior to Anticipated Discharge Date: 11/01/18 Anticipated Discharge Date: 11/02/18 - Discharge Skin Conditions Unhealed Pressure Ulcer (1 or more/Stage 1 or >)-Discharge: 0. No # Stage 1 Pressure Ulcers-Discharge: 0 # Stage 2 Pressure Ulcers-Discharge: 0 # of These Stage 2 Pressure Ulcers Present on Admission: 0 # Stage 3 Pressure Ulcers-Discharge: 0 # of These Stage 3 Pressure Ulcers Present on Admission: 0 # Stage 4 Pressure Ulcers-Discharge: 0 # of These Stage 4 Pressure Ulcers Present on Admission: 0 # Unstageable Pressure Ulcers (Non-remove Dress)-Discharge: 0 # These Unstageable Pressure Ulcers (NRD)-Present on Admit: 0 # Unstageable Pressure Ulcers (Slough/Eschar)-Discharge: 0 # These Unstageable Pressure Ulcers(Slough) Present on Admit: 0 # Unstageable Pressure Ulcers (Deep Tissue Injury)-Discharge: 0 # These Unstageable Pressure Ulcers (DTI) Present on Admit: 0
[2018-11-02] MEDS: BACLOFEN 20 MG TAB PO SCH (11:54)
--- NOTE | 2018-11-02 19:46 | GDS ---
[f rep st] DISCHARGE SUMMARY ADMITTING DIAGNOSES: Debility following urosepsis in a patient with multiple sclerosis. DISCHARGE DIAGNOSIS: Debility following urosepsis in a patient with multiple sclerosis. OTHER DISCHARGE DIAGNOSES: 1. Neurogenic bladder. 2. Spasticity. 3. Tinea cruris. COMPLICATIONS: None. CONSULTATIONS: She was seen by Infectious Disease, Dr. Kat, and urologist, Dr. Loaiza. PROCEDURES: None. HISTORY AND HOSPITAL COURSE: This patient was admitted from [facility]. She had presented there on 09/20/2018 with severe nausea and vomiting, as well as confusion. She had significant decline in function from her baseline, and was found down on the ground at home. She was found to have E coli bacteremia with source thought to be from the bladder. She required vasopressors, IV antibiotics, and an ICU stay. She had increased weakness, and was seen by Neurology, but she was not considered to have had an exacerbation of multiple sclerosis. She had steady progress in rehabilitation. Her initial functional independence measure was 49 on 09/28/2018, which is consistent with needing assistance with most activities of daily living, and all mobility at the alf level. She had steady progress, and as of 10/28/2018, her functional independence measure had improved to 98, which is consistent with assisted living level of function at the threshold of independence. She was able to ambulate with a 4- wheeled walker 100 feet. She was able to do a car transfer with her and minimal assist. She was able to do grooming and hygiene seated with modified independence. Upper body dressing was independent. Lower body dressing required minimal assist for her shoes and an AFO. She could do a toilet transfer and toileting with modified independence. Shower transfer and bathing were done with standby assist. She had symptoms of neurogenic bladder, with postvoid residuals in the mid 200s , and little sensation of bladder fullness. She was begun on tamsulosin and her residuals improved to the range of 65 mL to 170 mL. In order to not have to get up repeatedly at night, she was treated with an external female catheter. She had recurrent symptoms of dysuria. This was most prominent after she finished urination. She had a urine culture which grew Enterococcus faecalis. Infectious Disease consult was obtained. She was treated for a possible tinea cruris with fluconazole, and these symptoms completely resolved. There was no antibiotic treatment indicated for the Enterococcus on urine culture, which was considered to be a contaminant or colonization. Regarding spasticity, she had been using baclofen prior to her admission on a scheduled basis with p.r.n. dosing as well. This was changed to entirely scheduled as she was noted to have spasticity in the right leg, which would progress to extensor tone in her spine. She also had neuropathic symptoms versus spasticity at night in her right forearm. She was treated with tizanidine, which was titrated to 2 mg at bedtime, and had considerable improvement with 2 mg at bedtime. With the scheduled baclofen and the addition of tizanidine, she no longer had extensor tone in her spine, and had rarer episodes of spasticity in her right lower leg. She also had improvement of neuropathic symptoms versus spasticity in the right forearm at night. Diclofenac gel and lidocaine cream to the forearm were also helpful. Regarding her multiple sclerosis, she had been taking peginterferon in the Plegridy formulation, which she could self-administer every 2 weeks. It was not given during her rehabilitation stay because she reported that whenever she took it, she would have 3 days of weakness, and did not want to go through those 3 days while she was undergoing rehabilitation. She desired to initiate a different medication for multiple sclerosis. This was discussed with Neurology, and it was advised that any new medication be started on an outpatient basis under the supervision of a neurologist. On discharge, she was advised she should continue her Plegridy until she obtains a new neurologist. She had been seeing Dr. Rosio Bach in [place], but had concluded, together with her daughter, that the difficulties of traveling to [place] were considerable, and she would reestablish with a neurologist in [place]. She will be re-establishing with Dr. Landin at the [facility]. She had edema and reported history of venous insufficiency in the left leg. She had been taking hydrochlorothiazide intermittently at 25 mg when she developed edema. During her rehabilitation stay, she was treated with hydrochlorothiazide 12.5 mg daily, as well as compression stockings, and she had resolution of edema. CONDITION ON DISCHARGE: Good. ACTIVITY: Ad javy, but will need assistance for some aspects of mobility and activities of daily living, including lower body dressing when she arises in the morning. DIET: Regular. ALLERGIES: There were no new drug allergies noted, and she has no known drug allergies. MEDICATIONS ON DISCHARGE: 1. Baclofen 40 mg p.o. twice daily at 0600 and 1800, and 20 mg daily at noon. 2. Acetaminophen 650 mg p.o. q.4 hours p.r.n. 3. Aspirin 81 mg p.o. daily. 4. Azelaic acid 1 application topical twice daily. 5. Calcium carbonate 500 mg p.o. three times daily p.r.n. 6. Cholecalciferol 2000 units p.o. daily. 7. Diclofenac 1% gel, apply to right forearm p.r.n. 8. Hydrochlorothiazide 12.5 mg p.o. daily. 9. Lidocaine 4% cream, apply to right forearm at bedtime and p.r.n. 10. Melatonin 1.5 mg at bedtime. 11. Multivitamin 1 p.o. daily. 12. Peginterferon beta 1A 125 mg injection q.14 days. 13. Polyethylene glycol 17 g p.o. daily p.r.n. 14. Saliva substitute 15 mL four times daily p.r.n. 15. Senna/docusate 1 to 2 tabs p.o. twice daily. 16. Simvastatin 40 mg p.o. at bedtime. 17. Tamsulosin 0.5 mg p.o. daily. 18. Tizanidine 2 mg p.o. at bedtime. 19. Urea cream at bedtime p.r.n. dry skin. ISSUES TO BE ADDRESSED AT FOLLOWUP: 1. Debility. She will continue PT and OT at home as well as assistance from home health aide, typically in the mornings when she arises from bed. 2. Multiple sclerosis. Continue Plegridy initially. She will establish care with neurologist, Dr. Nasrin Landin at the [facility]. 3. Neurogenic bladder. Has responded well to tamsulosin; however, with history of urosepsis, which caused her great debility and hospitalization including ICU stay and pressors, urology evaluation is indicated. She will follow up with urologist, Dr. Loaiza, likely for urodynamic testing and further management subsequently. She plans to continue using the external female catheter at night. 4. Spasticity. Previously, she had been receiving regular botulinum toxin injections to her right leg. It is unclear whether she will continue to need botulinum toxin injections as she has done well with scheduled antispasmodics. She will follow up with Neurologist, Dr. Landin. Greater than 30 minutes were spent on this discharge including medication reconciliation, coordination of care, and counseling patient, , and daughter. /[id number]/MODL MTDD
== END 2018-11-02 13:35 | disposition home health service (06) | DRG 945 ==
LOC: BREH 09-26 13:37 → F3E 10-06 11:11
PROVIDERS: ADMIT Internal Medicine Hospice and Palliative Medicine; ATTEND Internal Medicine Hospice and Palliative Medicine
DX: Z51.89 Encounter for other specified aftercare (principal); G35 Multiple sclerosis; Z86.19 Personal history of other infectious and parasitic diseases; G81.91 Hemiplegia, unspecified affecting right dominant side; R33.9 Retention of urine, unspecified; D69.6 Thrombocytopenia, unspecified; R74.0 Nonspecific elevation of levels of transaminase and lactic acid dehydrogenase [LDH]; D64.9 Anemia, unspecified; Z86.718 Personal history of other venous thrombosis and embolism; Z79.01 Long term (current) use of anticoagulants; E78.5 Hyperlipidemia, unspecified; N31.9 Neuromuscular dysfunction of bladder, unspecified; B35.6 Tinea cruris; N39.41 Urge incontinence
CPT/HCPCS: 87186-90; 87798-90; 92507-GN; 92508-GN; 92523-GN; 97110-GO; 97110-GP; 97112-GO; 97112-GP; 97116-GP; 97140-GO; 97163-GP; 97167-GO; 97530-GO; 97530-GP; 97535-GO; 97542-GP; 97760-GP; 99366-GN; 99366-GO; J1650